=== PATIENT | female | born 1980 ===

== ENCOUNTER 2017-04-28 14:16 | Emergency (ER) | payer SELFPAY ==
[2017-04-28 14:31] VITALS: TEMP 98.7
--- NOTE | 2017-04-28 14:45 | ED PDOC ---
Arrival/HPI - General Chief Complaint: Alcohol Ingestion Time Seen by Provider: 04/28/17 14:20 Historian: Patient, EMS, Police - History of Present Illness Narrative History of Present Illness (Text): 04/28/17 14:40 A 36 year old female was brought into the emergency department by EMS for psych evaluation. EMS and [place] [employer] were called by sister after patient stated she was going to kill herself. Patient admits to drinking a lot of alcohol today and suicidal ideation with no plan. On evaluation, patient is aggressive and non-cooperative. Patient denies any physical complaints, homicidal ideation or hallucinations. Patient has not been complaint with her medication. 04/28/17 14:45 Time/Duration: Prior to Arrival Past Medical History - Provider Review Nursing Documentation Reviewed: Yes - Infectious Disease Hx of Infectious Diseases: None - Reproductive Menopause: No - Cardiac Other/Comment: alcohol abuse - Psychiatric Hx Depression: Yes Hx Substance Use: No Other/Comment: suicide attempt Family/Social History - Physician Review Nursing Documentation Reviewed: Yes Family/Social History: No Known Family HX Smoking Status: Current Some Days Smoker Hx Alcohol Use: Yes Frequency of alcohol use: Daily Hx Substance Use: No Allergies/Home Meds Allergies/Adverse Reactions: Allergies No Known Allergies Allergy (Verified 04/28/17 14:26) Home Medications: Home Meds Medication Instructions Recorded Confirmed DULoxetine [Cymbalta] 0 mg PO DAILY 04/28/17 04/28/17 Review of Systems - Physician Review All systems were reviewed & negative as marked: Yes - Review of Systems Constitutional: absent: Fevers, Night Sweats Respiratory: absent: SOB Cardiovascular: absent: Chest Pain Gastrointestinal: absent: Abdominal Pain, Nausea, Vomiting Psychiatric: Suicidal Ideation. absent: Other (Homicidal ideation, Hallucinations) Physical Exam Vital Signs Reviewed: Yes Vital Signs Temp Pulse Resp BP Pulse Ox 04/28/17 18:10 98 H 18 146/101 H 97 04/28/17 14:30 98.7 F 118 H 17 142/99 H 95 Temperature: Afebrile Blood Pressure: Hypertensive Pulse: Tachycardic Respiratory Rate: Normal Pain Distress: None Mental Status: Positive for: Agitated - Systems Exam Head: Present: Atraumatic, Normocephalic Pupils: Present: PERRL Extroacular Muscles: Present: EOMI Conjunctiva: Present: Normal Mouth: Present: Moist Mucous Membranes Neck: Present: Normal Range of Motion Respiratory/Chest: Present: Clear to Auscultation, Good Air Exchange. No: Respiratory Distress, Accessory Muscle Use Cardiovascular: Present: Regular Rate and Rhythm, Normal S1, S2. No: Murmurs Abdomen: Present: Normal Bowel Sounds. No: Tenderness, Distention, Peritoneal Signs Back: Present: Normal Inspection Upper Extremity: Present: Normal Inspection. No: Cyanosis, Edema Lower Extremity: Present: Normal Inspection. No: Edema Skin: Present: Warm, Dry, Normal Color. No: Rashes Psychiatric: Present: Agitated, Suicidal Ideation. No: Homicidal Ideation, Hallucinations Medical Decision Making ED Course and Treatment: 04/28/17 14:40 Impression: A 36 year old female brought in for psych evaluation. Patient admits to suicidal ideation and drinking a lot of alcohol today. Differential Diagnosis included but are not limited to: Suicidal ideation Plan: -- Chest xray -- EKG -- Labs -- Urinalysis -- Haldol and Ativan -- Restraints -- Reassess and disposition Progress Notes: On evaluation, patient was agitated, screaming and acting aggressive towards the emergency room staff. I attempted to talk to the patient and gave her time calm down. Patient continued yelling and acting non-cooperative. Haldol and Ativan were administered, and patient was restrained for her safety and the safety of the emergency room staff. 04/28/17 15:07 Sinus Tachy at [address] elevations, nl intervals. Patient is medically cleared for psych evaluation. CHEST X-RAY Dictator : Mally Blackwood MD Report Date : 04/28/2017 16:01:25 IMPRESSION: No focal consolidation, significant pleural effusion, or definite pneumothorax identified. 04/28/17 18:57 Patient evaluated by PES but still sedated. She will need a reevaluation by PES pending sobriety. Signed out to Dr. Mendez to f/u reeval and disposition and f/u PES. - Lab Interpretations Lab Results: 04/28/17 14:35 04/28/17 14:35 Lab Results 04/28/17 14:35: Beta HCG, Quant < 2.39 04/28/17 14:35: Alcohol, Quantitative 272 H 04/28/17 14:35: Salicylates < 1 L, Acetaminophen < 10.0 L 04/28/17 14:35: Sodium 142, Potassium 3.4 L, Chloride 101, Carbon Dioxide 26, Anion Gap 18, BUN 11, Creatinine 0.8, Est GFR ( Amer) > 60, Est GFR (Non- Af Amer) > 60, Random Glucose 128 H, Calcium 8.3 L, Total Bilirubin 0.4, AST 67 H, ALT 63 H, Alkaline Phosphatase 95, Total Protein 7.4, Albumin 4.2, Globulin 3.2, Albumin/Globulin Ratio 1.3 04/28/17 14:35: WBC 8.1, RBC 5.22, Hgb 15.2, Hct 43.8, MCV 83.9, MCH 29.1, MCHC 34.7, RDW 14.8 H, Plt Count 262, MPV 9.1, Gran % 52.8, Lymph % (Auto) 33.6, Rowan % (Auto) 12.5 H, Eos % (Auto) 0.2 L, Baso % (Auto) 0.9, Gran # 4.25, Lymph # 2.7, Rowan # 1.0 H, Eos # 0.0, Baso # 0.07 I have reviewed the lab results: Yes - RAD Interpretation Radiology Orders: 04/28/17 14:22 CHEST PORTABLE [RAD] Stat - Medication Orders Current Medication Orders: Discontinued Medications Haloperidol Lactate (Haldol) 5 mg IM STAT STA Stop: 04/28/17 14:23 Last Admin: 04/28/17 14:20 Dose: 5 mg Comments: administered by Graciela Joseph RN IM Administration Charges Document 04/28/17 14:20 (Rec: 04/28/17 15:36 [facility] [id number]) Charges for Administration # of IM Administrations 1 Lorazepam (Ativan) 2 mg IM ONCE ONE Stop: 04/28/17 14:23 Last Admin: 04/28/17 14:20 Dose: 2 mg IM Administration Charges Document 04/28/17 14:20 CNR (Rec: 04/28/17 14:32 CNR [id number]) Injection Site MAR Injection Site Right Deltoid Charges for Administration # of IM Administrations 1 Potassium Chloride (K-Dur 20 Meq Er Tab) 40 meq PO STAT STA Stop: 04/28/17 15:16 - Scribe Statement The provider has reviewed the documentation as recorded by the Scribe Julianne Rowland Provider García Attestation: All medical record entries made by the Proibrachel were at my direction and personally dictated by me. I have reviewed the chart and agree that the record accurately reflects my personal performance of the history, physical exam, medical decision making, and the department course for this patient. I have also personally directed, reviewed, and agree with the discharge instructions and disposition. Disposition/Present on Arrival - Present on Arrival Any Indicators Present on Arrival: No History of DVT/PE: No History of Uncontrolled Diabetes: No Urinary Catheter: No History of Decub. Ulcer: No History Surgical Site Infection Following: None - Disposition Have Diagnosis and Disposition been Completed?: Yes Diagnosis: Alcohol intoxication, Suicidal behavior Disposition Time: 18:58 Condition: FAIR Forms: [employer] (Yakut)
[2017-04-28 14:50] LABS: BASO # 0.07 K/mm3 (0.0-2.0); BASO % 0.9 % (0.0-3.0); EOS % 0.2 % (1.5-5.0); GRAN # 4.25 (1.4-6.5); GRAN % 52.8 % (50.0-68.0); HEMATOCRIT 43.8 % (36.0-48.0); LYMPH # 2.7 (1.2-3.4); LYMPH % 33.6 % (22.0-35.0); MEAN CELL VOLUME 83.9 fl (80.0-105.0); MEAN CORPUSCULAR HEMOGLOBIN 29.1 pg (25.0-35.0); MEAN CORPUSCULAR HGB CONC 34.7 g/dl (31.0-37.0); MEAN PLATELET VOLUME 9.1 fl (7.0-11.0); MONO % 12.5 % (1.0-6.0); RED CELL DISTRIBUTION WIDTH 14.8 % (11.5-14.5); WHITE BLOOD COUNT 8.1 10^3/ul (4.5-11.0)
[2017-04-28 14:58] LABS: ALKALINE PHOSPHATASE 95 U/L (38-126); ALT/SGPT 63 U/L (7-56); AST/SGOT 67 U/L (14-36); BILIRUBIN,TOTAL 0.4 mg/dL (0.2-1.3); BLOOD UREA NITROGEN 11 mg/dL (7-21); CALCIUM 8.3 mg/dL (8.4-10.5); CARBON DIOXIDE 26 mmol/L (21-33); CHLORIDE 101 mmol/L (98-107); GFR AFRICAN-AMERICAN > 60; GLUCOSE,RANDOM 128 mg/dL (70-110); POTASSIUM 3.4 mmol/L (3.6-5.0); SODIUM 142 mmol/L (132-148)
[2017-04-28 15:00] LABS: TOTAL PROTEIN 7.4 g/dL (5.8-8.3)
[2017-04-28 15:06] LABS: ALB/GLOB RATIO 1.3 (1.1-1.8)
[2017-04-28] MEDS ORDERED: Potassium Chloride 20 mEq ER Tab PO STA (15:15)
--- NOTE | 2017-04-28 16:02 | RAD ---
HISTORY: psych COMPARISON: None available. TECHNIQUE: Chest, one view. FINDINGS: Examination limited by hypoinflation and patient obliquity. LUNGS: No focal consolidation. PLEURA: No significant pleural effusion identified. No definite pneumothorax . CARDIOVASCULAR: The cardiomediastinal silhouette appears within normal limits of size. OSSEOUS STRUCTURES: No acute osseous abnormality identified. VISUALIZED UPPER ABDOMEN: Unremarkable. OTHER FINDINGS: None. IMPRESSION: No focal consolidation, significant pleural effusion, or definite pneumothorax identified.
[2017-04-28 18:10] VITALS: RESP 18
--- NOTE | 2017-04-28 19:10 | ED PDOC ---
Physical Exam Vital Signs Reviewed: Yes Vital Signs Temp Pulse Resp BP Pulse Ox 04/28/17 21:01 97 H 18 140/88 98 04/28/17 18:10 98 H 18 146/101 H 97 04/28/17 16:30 96 H 16 130/98 H 98 04/28/17 14:30 98.7 F 118 H 17 142/99 H 95 Temperature: Afebrile Blood Pressure: Hypertensive Pulse: Tachycardic Respiratory Rate: Normal Appearance: Positive for: Well-Appearing, Non-Toxic, Comfortable Pain Distress: None Mental Status: Positive for: Alert and Oriented X 3 Medical Decision Making ED Course and Treatment: 04/28/17 19:10 Case endorsed to me by Dr. Culp, pending PES re-evaluation and disposition. 04/28/17 22:55 Pt seen and re-evaluated by BLANCO Sanchez,discussed by him with psychiatrist pt psychiatrically cleared for discharge home. Pt awake, alert, agreeable with plan. - Lab Interpretations Lab Results: 04/28/17 14:35 04/28/17 14:35 Lab Results 04/28/17 14:35: Beta HCG, Quant < 2.39 04/28/17 14:35: Alcohol, Quantitative 272 H 04/28/17 14:35: Salicylates < 1 L, Acetaminophen < 10.0 L 04/28/17 14:35: Sodium 142, Potassium 3.4 L, Chloride 101, Carbon Dioxide 26, Anion Gap 18, BUN 11, Creatinine 0.8, Est GFR ( Amer) > 60, Est GFR (Non- Af Amer) > 60, Random Glucose 128 H, Calcium 8.3 L, Total Bilirubin 0.4, AST 67 H, ALT 63 H, Alkaline Phosphatase 95, Total Protein 7.4, Albumin 4.2, Globulin 3.2, Albumin/Globulin Ratio 1.3 04/28/17 14:35: WBC 8.1, RBC 5.22, Hgb 15.2, Hct 43.8, MCV 83.9, MCH 29.1, MCHC 34.7, RDW 14.8 H, Plt Count 262, MPV 9.1, Gran % 52.8, Lymph % (Auto) 33.6, Leslie % (Auto) 12.5 H, Eos % (Auto) 0.2 L, Baso % (Auto) 0.9, Gran # 4.25, Lymph # 2.7, Leslie # 1.0 H, Eos # 0.0, Baso # 0.07 - RAD Interpretation Radiology Orders: 04/28/17 14:22 CHEST PORTABLE [RAD] Stat - Medication Orders Current Medication Orders: Discontinued Medications Haloperidol Lactate (Haldol) 5 mg IM STAT STA Stop: 04/28/17 14:23 Last Admin: 04/28/17 14:20 Dose: 5 mg Comments: administered by Graciela Joseph RN IM Administration Charges Document 04/28/17 14:20 MD (Rec: 04/28/17 15:36 [id number]) Charges for Administration # of IM Administrations 1 Lorazepam (Ativan) 2 mg IM ONCE ONE Stop: 04/28/17 14:23 Last Admin: 04/28/17 14:20 Dose: 2 mg IM Administration Charges Document 04/28/17 14:20 CNR (Rec: 04/28/17 14:32 CNR [id number]) Injection Site MAR Injection Site Right Deltoid Charges for Administration # of IM Administrations 1 Potassium Chloride (K-Dur 20 Meq Er Tab) 40 meq PO STAT STA Stop: 04/28/17 15:16 Disposition/Present on Arrival - Present on Arrival Any Indicators Present on Arrival: No History of DVT/PE: No History of Uncontrolled Diabetes: No Urinary Catheter: No History of Decub. Ulcer: No History Surgical Site Infection Following: None - Disposition Have Diagnosis and Disposition been Completed?: Yes Diagnosis: Alcohol intoxication Disposition: HOME/ ROUTINE Disposition Time: 23:47 Patient Plan: Discharge Patient Problems: Current Active Problems Problem Status Onset Alcohol intoxication Acute Suicidal behavior Acute Condition: FAIR Discharge Instructions (ExitCare): Alcohol Intoxication (ED) Referrals: Alcoholics Anonymous [Outside] - Follow up with primary Community [facility] [Outside] - Follow up with primary Forms: [employer] (Divehi)
[2017-04-28 21:02] VITALS: BP 140/88; PULSE 97; O2SAT 98
--- NOTE | 2017-04-29 19:53 | CARD ---
APPROVED REPORT EKG Measurement Heart [id number] <Conclusion> Sinus tachycardia Possible Left atrial enlargement Borderline ECG
== END 2017-04-29 06:44 | disposition home or self-care (01) ==
LOC: ED 14:16
DX: F10.129 Alcohol abuse with intoxication, unspecified (principal); Y90.8 Blood alcohol level of 240 mg/100 ml or more; R45.851 Suicidal ideations
CPT/HCPCS: 71010; 80053; 84702; 85025; 90791; 93005; 96372; 99285; G0480; J1630; J2060

== ENCOUNTER 2017-05-05 09:33 | Inpatient (IN) | payer OTHER ==
[2017-05-05] MEDS ORDERED: Sodium Chloride 0.9% 1,000 ML IV STA (09:48)
--- NOTE | 2017-05-05 09:54 | ED PDOC ---
Arrival/HPI - General Chief Complaint: Medical Clearance Time Seen by Provider: 05/05/17 09:37 Historian: Patient - Critical Care Critical Care Minutes: 45 minutes - History of Present Illness Narrative History of Present Illness (Text): 05/05/17 09:51 36 year old female, whose past medical history includes alcohol abuse, presents to the emergency department complaining of alcohol withdrawals that began 3 days ago. Patient admits to drinking prior to alcohol detox. She also reports hearing voices and reports multiple mechanical falls. Patient currently complains of nausea, vomiting, but denies any fever, chest pain, diarrhea, back pain, neck pain, headache, dizziness, suicidal/homicidal ideation or any other complaints. Time/Duration: Other (3 days ago) Symptom Course: Unchanged Activities at Onset: Light Context: Home Past Medical History - Provider Review Nursing Documentation Reviewed: Yes - Infectious Disease Hx of Infectious Diseases: None - Cardiac Hx Cardiac Disorders: No Hx Hypertension: No - Pulmonary Hx Tuberculosis: No - Neurological HX Cerebrovascular Accident: No Hx Seizures: No - Hematological/Oncological Hx Cancer: No - Genitourinary/Gynecological Hx Sexually Transmitted Diseases: No - Psychiatric Hx Depression: Yes Hx Substance Use: No Other/Comment: suicide attempt, daily alcohol consumption - Anesthesia Hx Anesthesia: No Hx Anesthesia Reactions: No Hx Malignant Hyperthermia: No Family/Social History - Physician Review Nursing Documentation Reviewed: Yes Family/Social History: No Known Family HX Smoking Status: Current Some Days Smoker Hx Alcohol Use: Yes Hx Substance Use: No Allergies/Home Meds Allergies/Adverse Reactions: Allergies Tetracyclines Adverse Reaction (Verified 05/05/17 09:59) RASH Home Medications: Home Meds Medication Instructions Recorded Confirmed DULoxetine [Cymbalta] 1 mg PO DAILY 04/28/17 05/05/17 Review of Systems - Physician Review All systems were reviewed & negative as marked: Yes - Review of Systems Constitutional: Other (Treminalous ). absent: Fevers Respiratory: absent: SOB Gastrointestinal: Nausea, Vomiting Musculoskeletal: absent: Back Pain, Neck Pain Skin: Other (bruising bilateral elbow and knee) Neurological: absent: Headache, Dizziness Psychiatric: Other (Hearing voices). absent: Suicidal Ideation (/Homicidal Ideation) Physical Exam Vital Signs Reviewed: Yes Vital Signs Temp Pulse Resp BP Pulse Ox 05/05/17 14:43 108 H 21 134/84 100 05/05/17 13:12 112 H 18 150/82 98 05/05/17 11:24 112 H 14 138/94 H 99 05/05/17 09:37 98.6 F 144 H 20 140/98 H 99 Temperature: Afebrile Blood Pressure: Normal Pulse: Tachycardic Respiratory Rate: Normal Appearance: Positive for: Other (Traminalous) Mental Status: Positive for: Alert and Oriented X 3 - Systems Exam Head: Present: Normocephalic, Contusion (Small contusion to forehead ) Pupils: Present: PERRL Extroacular Muscles: Present: EOMI Conjunctiva: Present: Normal Mouth: Present: Moist Mucous Membranes Neck: Present: Normal Range of Motion Respiratory/Chest: Present: Clear to Auscultation, Good Air Exchange. No: Respiratory Distress, Accessory Muscle Use Cardiovascular: Present: Normal S1, S2, Tachycardic. No: Murmurs Abdomen: Present: Normal Bowel Sounds. No: Tenderness, Distention, Peritoneal Signs Back: Present: Normal Inspection Upper Extremity: Present: Normal Inspection, Other (Ecchymosis worsen bilateral elbow and knee). No: Cyanosis, Edema Lower Extremity: Present: Normal Inspection. No: Edema Neurological: Present: GCS=15, CN II-XII Intact, Speech Normal Skin: Present: Warm, Dry, Normal Color. No: Rashes Psychiatric: Present: Alert, Oriented x 3, Normal Insight, Normal Concentration Medical Decision Making ED Course and Treatment: 05/05/17 09:52 Impression: 36 year old female presents complaining of alcohol withdrawal symptoms that began 3 days ago. Plan: -- Head CT -- EKG -- Labs -- Chest X-ray -- Ativan -- IV Fluids -- Zofran -- Elbow Left and Right 3 View X-Ray -- Knees Bilateral X-ray -- Pelvis One View X-Ray -- Right ribs X-ray -- Urinalysis -- Reassess and disposition Prior Visits: Notes and results from previous visits were reviewed. Patient was last seen in the emergency department on 04/28/17 for psych evaluation. Patient admits to drinking. Progress Notes: EKG shows Sinus Tachycardia at 121 BPM. Interpreted by me. 05/05/17 10:21 On re-evaluation patient remains tachycardic. Tremulous has improved. PROCEDURE: CT HEAD WITHOUT CONTRAST Dictator: Jacob Aaron MD Report Date : 05/05/2017 IMPRESSION: No acute intracranial hemorrhage. Mild left-sided scalp swelling as above PROCEDURE: Right elbow Dictator: Jacob Aaron MD Report Date : 05/05/2017 11:34:46 IMPRESSION: Limited study demonstrating no acute fractures. PROCEDURE: Left elbow Dictator: Jacob Aaron MD Report Date : 05/05/2017 11:35:46 IMPRESSION: No evidence of acute displaced fracture nor dislocation. PROCEDURE: Radiographs of the pelvis. Dictator: Jacob Aaron MD Report Date : 05/05/2017 11:56:53 IMPRESSION: No evidence of acute displaced fracture nor dislocation. In situ Copper-T IUD PROCEDURE: Right rib Dictator : Jacob Aaron MD Report Date : 05/05/2017 12:14:30 IMPRESSION: No evidence of acute displaced right-sided rib fracture. No evidence of pneumothorax. If symptoms persist or occult fracture suspected clinically consider followup CT scan of the chest only if clinically indicated PROCEDURE: Chest X-ray Dictator : Jacob Aaron MD Report Date : 05/05/2017 12:12:17 IMPRESSION: Poor inspiration with low lung volumes, minor crowded bronchovascular markings and minor bibasilar atelectasis. PROCEDURE: Bilateral Knee Radiographs. Dictator : Jacob Aaron MD Report Date : 05/05/2017 12:10:18 IMPRESSION: No evidence of acute displaced fracture nor dislocation 05/05/17 12:[address] Matthew, who is aware and agrees with the plan. Accepts patient into service. Patient will go to Telemetry for alcohol withdrawal. - Lab Interpretations Lab Results: 05/05/17 10:00 05/05/17 10:00 Lab Results 05/05/17 10:00: Alcohol, Quantitative 100 H 05/05/17 10:00: Salicylates 4, Acetaminophen < 10.0 L 05/05/17 10:00: Urine Opiates Screen Negative, Urine Methadone Screen Negative, Ur Barbiturates Screen Negative, Ur Phencyclidine Scrn Negative, Ur Amphetamines Screen Negative, U Benzodiazepines Scrn Negative, U Oth Cocaine Metabols Negative, U Cannabinoids Screen Negative 05/05/17 10:00: Sodium 138, Potassium 3.2 L, Chloride 97 L, Carbon Dioxide 23, Anion Gap 21 H, BUN 16, Creatinine 0.7, Est GFR ( Amer) > 60, Est GFR ( Non-Af Amer) > 60, Random Glucose 132 H, Calcium 8.3 L, Total Bilirubin 1.1, AST 162 H D, ALT 122 H, Alkaline Phosphatase 140 H D, Total Creatine Kinase 1560 H, CK-MB (CK-2) 26.4 H, CK-MB (CK-2) % 1.7 L, Total Protein 7.3, Albumin 3.9, Globulin 3.4, Albumin/Globulin Ratio 1.1 05/05/17 10:00: Urine Color Light brown, Urine Appearance Sl cloudy, Urine pH 6.0, Ur Specific Goodman >= 1.030, Urine Protein 100 H, Urine Glucose (UA) Negative, Urine Ketones 40 H, Urine Blood Large H, Urine Nitrate Negative, Urine Bilirubin Small H, Urine Urobilinogen 1.0 H, Ur Leukocyte Esterase Negative, Urine RBC 25 - 30, Urine WBC 0 - 2, Ur Epithelial Cells 6 - 8, Amorphous Sediment Few, Urine Bacteria Many, Hyaline Casts 2 - 5, Fine Granular Casts 0 - 2, Urine Other Uyeast, Urine HCG, Qual Negative 05/05/17 10:00: WBC 14.1 H D, RBC 4.95, Hgb 14.3, Hct 40.9, MCV 82.6, MCH 28.9, MCHC 35.0, RDW 14.3, Plt Count 115 L, MPV 10.3, Gran % 79.9 H, Lymph % (Auto) 15.4 L, Hardin % (Auto) 4.5, Eos % (Auto) 0.0 L, Baso % (Auto) 0.2, Gran # 11.26 H , Lymph # 2.2, Hardin # 0.6, Eos # 0.0, Baso # 0.03 I have reviewed the lab results: Yes - RAD Interpretation Radiology Orders: 05/05/17 09:47 CHEST PORTABLE [RAD] Stat 05/05/17 10:01 HEAD W/O CONTRAST [CT] Stat ELBOW LEFT 3 VIEWS ROUTINE [RAD] Stat ELBOW RIGHT 3 VIEWS ROUTINE [RAD] Stat KNEES BILATERAL [RAD] Stat 05/05/17 10:10 PELVIS ONE VIEW [RAD] Stat 05/05/17 10:50 RIBS RIGHT [RAD] Stat - EKG Interpretation Interpreted by ED Physician: Yes Type: 12 lead EKG - Medication Orders Current Medication Orders: Duloxetine HCl (Cymbalta) 20 mg PO DAILY MANSI Folic Acid 1 mg/ Thiamine HCl 100 mg/ Multivitamins/Vitamin C 10 ml/ Dextrose 1 ,011.2 mls @ 100 mls/hr IV .Q10H7M MANSI Stop: 05/06/17 09:58 Last Admin: 05/05/17 14:15 Dose: 100 mls/hr eMAR Start Stop Document 05/05/17 14:15 CNR (Rec: 05/05/17 14:15 CNR [id number]) Intravenous Solution Start Date 05/05/17 Start Time 14:15 Ibuprofen (Motrin Tab) 600 mg PO Q6H PRN PRN Reason: Pain, moderate (4-7) Lorazepam (Ativan) 2 mg IVP Q4H MANSI PRN Reason: Protocol Last Admin: 05/05/17 13:56 Dose: 2 mg IVP Administration Document 05/05/17 13:56 CNR (Rec: 05/05/17 13:56 CNR [id number]) Charges for Administration # of IVP Administrations 1 Lorazepam (Ativan) 2 mg IVP Q2H PRN; Protocol PRN Reason: Symptoms of alcohol withdrawl Pantoprazole Sodium (Protonix Ec Tab) 40 mg PO 0600 MANSI Discontinued Medications Chlordiazepoxide (Librium) 50 mg PO STAT STA PRN Reason: Protocol Stop: 05/05/17 11:26 Last Admin: 05/05/17 11:31 Dose: 50 mg Re-Assess: SOFIE Pain Assessment Document 05/05/17 14:21 GMI (Rec: 05/05/17 14:21 GMI [id number]) Pain Reassessment Is this a pain reassessment? No Sleep Is patient sleeping during reassessment? No Famotidine (Pepcid) 40 mg PO HS MANSI Sodium Chloride (Sodium Chloride 0.9%) 1,000 mls @ 999 mls/hr IV .Q1H1M STA Stop: 05/05/17 10:48 Last Admin: 05/05/17 10:04 Dose: 999 mls/hr eMAR Start Stop Document 05/05/17 10:04 GMI (Rec: 05/05/17 10:04 GMI [id number]) Intravenous Solution Start Date 05/05/17 Start Time 10:04 Lorazepam (Ativan) 2 mg IVP ONCE ONE PRN Reason: Protocol Stop: 05/05/17 09:49 Last Admin: 05/05/17 10:18 Dose: 2 mg IVP Administration Document 05/05/17 10:18 CNR (Rec: 05/05/17 10:20 CNR [id number]) Charges for Administration # of IVP Administrations 1 Re-Assess: SOFIE Pain Assessment Document 05/05/17 14:21 GMI (Rec: 05/05/17 14:21 GMI [id number]) Pain Reassessment Is this a pain reassessment? No Magnesium Oxide (Mag-Ox) 400 mg PO STAT STA Stop: 05/05/17 13:39 Last Admin: 05/05/17 13:55 Dose: 400 mg Ondansetron HCl (Zofran Inj) 4 mg IVP STAT STA Stop: 05/05/17 09:53 Last Admin: 05/05/17 10:05 Dose: 4 mg IVP Administration Document 05/05/17 10:05 GMI (Rec: 05/05/17 10:05 I [id number]) Charges for Administration # of IVP Administrations 1 Potassium Chloride (K-Dur 20 Meq Er Tab) 40 meq PO STAT STA Stop: 05/05/17 10:54 Last Admin: 05/05/17 11:31 Dose: 40 meq - Proibrachel Statement The provider has reviewed the documentation as recorded by the García Amaro All medical record entries made by the García were at my direction and personally dictated by me. I have reviewed the chart and agree that the record accurately reflects my personal performance of the history, physical exam, medical decision making, and the department course for this patient. I have also personally directed, reviewed, and agree with the discharge instructions and disposition. Disposition/Present on Arrival - Present on Arrival Any Indicators Present on Arrival: No History of DVT/PE: No History of Uncontrolled Diabetes: No Urinary Catheter: No History of Decub. Ulcer: No History Surgical Site Infection Following: None - Disposition Have Diagnosis and Disposition been Completed?: Yes Diagnosis: Alcohol withdrawal Disposition: HOSPITALIZED Disposition Time: 14:48 Condition: FAIR
[2017-05-05 10:39] LABS: BASO # 0.03 K/mm3 (0.0-2.0); BASO % 0.2 % (0.0-3.0); GRAN # 11.26 (1.4-6.5); GRAN % 79.9 % (50.0-68.0); HEMATOCRIT 40.9 % (36.0-48.0); LYMPH # 2.2 (1.2-3.4); LYMPH % 15.4 % (22.0-35.0); MEAN CELL VOLUME 82.6 fl (80.0-105.0); MEAN CORPUSCULAR HEMOGLOBIN 28.9 pg (25.0-35.0); MEAN PLATELET VOLUME 10.3 fl (7.0-11.0); MONO # 0.6 (0.1-0.6); MONO % 4.5 % (1.0-6.0); RED CELL DISTRIBUTION WIDTH 14.3 % (11.5-14.5); WHITE BLOOD COUNT 14.1 10^3/ul (4.5-11.0)
[2017-05-05 10:40] LABS: URINE BILIRUBIN SMALL (NEGATIVE); URINE BLOOD LARGE (NEGATIVE); URINE GLUCOSE (UA) NEGATIVE (NEGATIVE); URINE KETONE 40 mg/dL (NEGATIVE); URINE LEUKOCYTE ESTERASE NEGATIVE Leu/uL (NEGATIVE); URINE PROTEIN 100 mg/dL (<30 mg/dL)
[2017-05-05 10:41] LABS: URINE APPEARANCE SL CLOUDY (CLEAR); URINE COLOR LIGHT BROWN (YELLOW)
[2017-05-05 10:44] LABS: URINE BACTERIA MANY (NEG); URINE RBC 25 - 30 /hpf (0-2); URINE WBC 0 - 2 /hpf (0-6)
[2017-05-05 10:46] LABS: URINE AMORPHOUS SEDIMENT FEW
[2017-05-05 10:50] LABS: ALB/GLOB RATIO 1.1 (1.1-1.8); ALKALINE PHOSPHATASE 140 U/L (38-126); ALT/SGPT 122 U/L (7-56); AST/SGOT 162 U/L (14-36); BILIRUBIN,TOTAL 1.1 mg/dL (0.2-1.3); BLOOD UREA NITROGEN 16 mg/dL (7-21); CALCIUM 8.3 mg/dL (8.4-10.5); CARBON DIOXIDE 23 mmol/L (21-33); CHLORIDE 97 mmol/L (98-107); GFR AFRICAN-AMERICAN > 60; GLUCOSE,RANDOM 132 mg/dL (70-110); POTASSIUM 3.2 mmol/L (3.6-5.0); SODIUM 138 mmol/L (132-148); TOTAL PROTEIN 7.3 g/dL (5.8-8.3)
[2017-05-05] MEDS ORDERED: Potassium Chloride 20 mEq ER Tab PO STA (10:53)
--- NOTE | 2017-05-05 11:06 | CT ---
PROCEDURE: CT HEAD WITHOUT CONTRAST. HISTORY: Trauma COMPARISON: None available. TECHNIQUE: Axial computed tomography images were obtained through the head/brain without intravenous contrast. Radiation dose: Total exam DLP = 726.57 mGy-cm. This CT exam was performed using one or more of the following dose reduction techniques: Automated exposure control, adjustment of the mA and/or kV according to patient size, and/or use of iterative reconstruction technique. FINDINGS: HEMORRHAGE: No acute parenchymal, subarachnoid nor extra-axial hemorrhage. BRAIN: No mass effect or edema. No atrophy or chronic microvascular ischemic changes. VENTRICLES: Unremarkable. No hydrocephalus. CALVARIUM: No acute calvarial fractures. Mild left frontotemporal and parietal scalp swelling. PARANASAL SINUSES: Minor mucosal thickening seen within a few ethmoid air cells. MASTOID AIR CELLS: Unremarkable as visualized. No inflammatory changes. OTHER FINDINGS: None. IMPRESSION: No acute intracranial hemorrhage. Mild left-sided scalp swelling as above
--- NOTE | 2017-05-05 11:36 | RAD ---
PROCEDURE: Right elbow dated 05/05/2017. Three views right elbow performed. Note the examination is somewhat limited due to overlying artifact which partially obscures fine soft tissue and bone detail HISTORY: trauma COMPARISON: No prior. FINDINGS: BONES: No evidence of acute displaced fracture nor dislocation. The osseous structures appear intact. JOINTS: No significant osteoarthritis. SOFT TISSUES: In situ Angiocath JOINT EFFUSION: None. OTHER FINDINGS: None. IMPRESSION: Limited study demonstrating no acute fractures.
--- NOTE | 2017-05-05 11:37 | RAD ---
PROCEDURE: Left elbow dated the 05/05/2017 Three views left elbow performed HISTORY: trauma COMPARISON: No prior. FINDINGS: BONES: Normal. No fracture. JOINTS: Normal. No osteoarthritis. SOFT TISSUES: Normal. JOINT EFFUSION: None. OTHER FINDINGS: None IMPRESSION: No evidence of acute displaced fracture nor dislocation.
--- NOTE | 2017-05-05 11:58 | RAD ---
PROCEDURE: Radiographs of the pelvis. HISTORY: fall COMPARISON: None. FINDINGS: BONES: Pelvic Bones: Unremarkable. Hips: Grossly unremarkable. JOINTS: Sacroiliac Joints: Unremarkable. Pubic Symphysis: Unremarkable. OTHER FINDINGS: In situ Copper-T IUD theNone. IMPRESSION: No evidence of acute displaced fracture nor dislocation. In situ Copper-T IUD
--- NOTE | 2017-05-05 12:11 | RAD ---
PROCEDURE: Bilateral Knee Radiographs. HISTORY: trauma COMPARISON: None. FINDINGS: BONES: Right Knee: Normal. No fracture. Left Knee: Normal. No fracture. JOINTS: Right Knee: Normal. No osteoarthritis. Left knee: Normal. No osteoarthritis. SOFT TISSUES: Right Knee: Normal. Left Knee: Normal. JOINT EFFUSION: Evaluation for joint effusion both knees limited due to over flexion in the lateral projection OTHER FINDINGS: None. IMPRESSION: No evidence of acute displaced fracture nor dislocation
--- NOTE | 2017-05-05 12:13 | RAD ---
HISTORY: pysch COMPARISON: Comparison made with prior chest radiograph 04/28/2017 and concurrent radiographs of the right ribs. FINDINGS: LUNGS: Poor inspiration with low lung volumes, minor crowded bronchovascular markings and minor bibasilar atelectasis. PLEURA: No significant pleural effusion identified, no pneumothorax apparent. CARDIOVASCULAR: Normal. OSSEOUS STRUCTURES: No significant abnormalities. VISUALIZED UPPER ABDOMEN: Normal. OTHER FINDINGS: None. IMPRESSION: Poor inspiration with low lung volumes, minor crowded bronchovascular markings and minor bibasilar atelectasis.
--- NOTE | 2017-05-05 12:16 | RAD ---
PROCEDURE: Right rib series dated HISTORY: fall COMPARISON: 05/05/2017 correlation made with concurrent radiograph of the chest TECHNIQUE: Three views of the right ribs performed. FINDINGS: RIGHT RIBS: No fracture or focal lesion visualized. LUNGS: Clear. PLEURA: No pneumothorax or pleural fluid. CARDIOVASCULAR: Normal sized heart. No pulmonary vascular congestion. OTHER FINDINGS: None. IMPRESSION: No evidence of acute displaced right-sided rib fracture. No evidence of pneumothorax. If symptoms persist or occult fracture suspected clinically consider followup CT scan of the chest only if clinically indicated
--- NOTE | 2017-05-05 13:22 | CP.PCM.HP ---
<Trav Oconnell - Last Filed: 05/05/17 13:15> History of Present Illness - History of Present Illness History of Present Illness: Dr. Matthew Service 36 F with a PMHx of depression with previous suicidal ideation, ETOH abuse, and asthma that [place] [facility] with complaints of ETOH withdrawal. Pt states her last drink was approx 3 days ago and has been experiencing tremors, nausea, vomiting and auditory hallucinations. Pt also reports that she has multiple contusions from multiple falls while she was intoxicated. Pt states she would previously go through a gallon of vodka within 2 days and drank daily. Pt was recently seen in the [facility] approx a week ago for suicidal ideation and EOTH intoxication. Pt was seen and examined at bedside. Pt admits to tremors, reproducible chest wall tenderness, nausea and vomitting. Pt currently denied suicidal or homicidal ideation. Pt denied fever, chills, sob, abdominal pain, melena, hematochezia, or urinary symptoms. 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, from significant other Meds: Cymbalta Allergies: Tetracycline Present on Admission - Present on Admission Any Indicators Present on Admission: No Review of Systems - Review of Systems Review of Systems: As per HPI otherwise negative Past Patient History - Infectious Disease Hx of Infectious Diseases: None - Past Social History Smoking Status: Current Some Days Smoker - CARDIAC Hx Cardiac Disorders: No Hx Hypertension: No - PULMONARY Hx Tuberculosis: No - NEUROLOGICAL HX Cerebrovascular Accident: No Hx Seizures: No - HEMATOLOGICAL/ONCOLOGICAL Hx Cancer: No - GENITOURINARY/GYNECOLOGICAL Hx Sexually Transmitted Disorders: No - PSYCHIATRIC Hx Depression: Yes Hx Substance Use: No Other/Comment: suicide attempt, daily alcohol consumption - SURGICAL HISTORY Hx Surgeries: No - ANESTHESIA Hx Anesthesia: No Hx Anesthesia Reactions: No Hx Malignant Hyperthermia: No Meds Allergies/Adverse Reactions: Allergies Allergy/AdvReac Type Severity Reaction Status Date / Time Tetracyclines AdvReac RASH Verified 05/05/17 09:59 Physical Exam - Constitutional Appears: No Acute Distress Additional comments: Tremulous - Head Exam Additional comments: Mild swelling of forehead - trauma from fall, no lacerations - Eye Exam Eye Exam: EOMI, Normal appearance, PERRL Pupil Exam: NORMAL ACCOMODATION, PERRL - ENT Exam ENT Exam: Mucous Membranes Moist, Normal Exam - Neck Exam Neck exam: Positive for: Normal Inspection - Respiratory Exam Respiratory Exam: Clear to Auscultation Bilateral, NORMAL BREATHING PATTERN - Cardiovascular Exam Cardiovascular Exam: Tachycardia, +S1, +S2 - GI/Abdominal Exam GI & Abdominal Exam: Normal Bowel Sounds, Soft. absent: Tenderness - Extremities Exam Additional comments: Multiple contusions: elbows b/l, knees - Neurological Exam Neurological exam: Alert, CN II-XII Intact, Oriented x3, Reflexes Normal - Psychiatric Exam Psychiatric exam: Anxious, Depressed - Skin Skin Exam: Dry, Intact, Normal Color, Warm Results - Vital Signs Recent Vital Signs: Last Vital Signs Temp 98.6 F 05/05/17 09:37 Pulse 112 H 05/05/17 13:12 Resp 18 05/05/17 13:12 BP 150/82 05/05/17 13:12 Pulse Ox 98 05/05/17 13:12 - Labs Result Diagrams: 05/05/17 10:00 05/05/17 10:00 Assessment & Plan - Assessment and Plan (Free Text) Assessment: 36 F with PMHx of ETOH abuse and depression admitted for ETOH withdrawal. 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 Couch DVT/GI ppx: Heparin/Protonix Seen reviewed and discussed with attending <Ken Matthew - Last Filed: 05/05/17 14:54> Results - Vital Signs Recent Vital Signs: Last Vital Signs Temp 98.6 F 05/05/17 09:37 Pulse 108 H 05/05/17 14:43 Resp 21 05/05/17 14:43 BP 134/84 05/05/17 14:43 Pulse Ox 100 05/05/17 14:43 - Labs Result Diagrams: 05/05/17 10:00 05/05/17 10:00 Labs: Laboratory Results - last 24 hr 05/05/17 05/05/17 13:00 13:50 APTT 26.4 Phosphorus 2.9 Magnesium 1.4 L Attending/Attestation - Attestation I have personally seen and examined this patient.: Yes I have fully participated in the care of the patient.: Yes I have reviewed all pertinent clinical information: Yes Notes (Text): 05/05/17 14:49 36 year old female with past medical history of alcohol abuse and depression who presents with alcohol withdrawal. Continue with banana bag. Continue with ativan dariel and prn dose for withdrawal symptoms. She was counselled on alcohol cessation. Will replete and repeat lytes (potassium and magnesium). She admits to recent falls. Xray imaging studies are negative. Will need PT evaluation once stable. Will request for psychiatry and drug abuse social worker evaluation. Elevated LFTs likely secondary to chronic ETOH abuse. Will monitor. Hepatitis panel is ordered as well. Leukocytosis likely reactive. CXR negative. UA negative for LE/nitrates. Will monitor off antibiotics for now. Ken Matthew MD Hospitalist.
[2017-05-05 13:29] LABS: MAGNESIUM 1.4 mg/dL (1.7-2.2); PHOSPHOROUS 2.9 mg/dL (2.5-4.5)
[2017-05-05] MEDS ORDERED: Magnesium Oxide 400 mg Tab UD PO STA (13:38)
[2017-05-05] MEDS: Folic Acid 1 MG, Thiamine 100 MG, Multivitamin (MVI) 10 ML in Dextrose 5% In Water 1,00... IV SCH (14:15)
--- NOTE | 2017-05-05 14:31 | CARD ---
APPROVED REPORT EKG Measurement Heart [id number] <Conclusion> Sinus tachycardia Otherwise normal ECG
[2017-05-05 17:36] VITALS: BMI 25.9
[2017-05-05] MEDS ORDERED: Influenza Vaccine 60 mcg/0.5 mL SYR (4YR UP) IM ONE (17:36)
[2017-05-05] MEDS ORDERED: Pneumococcal 23-Valent Vaccine IM ONE (17:36)
[2017-05-05] MEDS ORDERED: Albuterol 0.083% Inhal Sol (2.5 mg/3 mL) UD IH PRN (17:46)
[2017-05-05] MEDS ORDERED: Fluticasone-Salmeterol 250-50mcg Diskus IH SCH ×2 (18:00)
[2017-05-05] MEDS: Arformoterol 15 mcg/2 ml Inh Sol IH SCH (20:15)
[2017-05-05] MEDS: Budesonide 0.5 mg/2 ml Inhal Susp UD IH SCH (20:15)
[2017-05-06] MEDS: Folic Acid 1 MG, Thiamine 100 MG, Multivitamin (MVI) 10 ML in Dextrose 5% In Water 1,00... IV SCH (01:58)
[2017-05-06] MEDS ORDERED: Pantoprazole 40 mg EC Tab PO SCH (06:00)
[2017-05-06] MEDS: Budesonide 0.5 mg/2 ml Inhal Susp UD IH SCH (07:32)
[2017-05-06] MEDS: Arformoterol 15 mcg/2 ml Inh Sol IH SCH (07:32)
[2017-05-06 07:47] LABS: BASO # 0.03 K/mm3 (0.0-2.0); BASO % 0.7 % (0.0-3.0); EOS # 0.1 (0.0-0.7); EOS % 1.3 % (1.5-5.0); GRAN # 2.42 (1.4-6.5); GRAN % 52.7 % (50.0-68.0); HEMATOCRIT 35.8 % (36.0-48.0); LYMPH # 1.8 (1.2-3.4); LYMPH % 38.1 % (22.0-35.0); MEAN CELL VOLUME 83.3 fl (80.0-105.0); MEAN CORPUSCULAR HEMOGLOBIN 28.4 pg (25.0-35.0); MEAN CORPUSCULAR HGB CONC 34.1 g/dl (31.0-37.0); MONO # 0.3 (0.1-0.6); MONO % 7.2 % (1.0-6.0); RED CELL DISTRIBUTION WIDTH 14.2 % (11.5-14.5); WHITE BLOOD COUNT 4.6 10^3/ul (4.5-11.0)
[2017-05-06 07:49] LABS: ALB/GLOB RATIO 1.1 (1.1-1.8); ALKALINE PHOSPHATASE 110 U/L (38-126); ALT/SGPT 111 U/L (7-56); AST/SGOT 135 U/L (14-36); BILIRUBIN,TOTAL 1.7 mg/dL (0.2-1.3); BLOOD UREA NITROGEN 8 mg/dL (7-21); CALCIUM 8.4 mg/dL (8.4-10.5); CARBON DIOXIDE 29 mmol/L (21-33); CHLORIDE 100 mmol/L (95-110); GFR AFRICAN-AMERICAN > 60; GLUCOSE,RANDOM 130 mg/dL (70-110); MAGNESIUM 1.8 mg/dL (1.7-2.2); PHOSPHOROUS 2.4 mg/dL (2.5-4.5); POTASSIUM 3.4 mmol/L (3.6-5.0); SODIUM 136 mmol/L (132-148); TOTAL PROTEIN 6.2 g/dL (5.8-8.3)
[2017-05-06] MEDS: Potassium & Sodium Phosphate PO SCH ×2 (09:28→13:17)
--- NOTE | 2017-05-06 14:18 | CP.PCM.PN ---
<Milton Garcia - Last Filed: 05/06/17 14:23> Subjective - Date & Time of Evaluation Date of Evaluation: 05/06/17 Time of Evaluation: 10:16 - Subjective Subjective: Patient seen and examined at bedside this morning. Per nursing no acute events occurred overnight. The patient denies any chest pain, shortness of breath, nausea, vomiting, changes in vision, abdominal pain, lightheadedness, dizziness , or any other complaints. Objective - Vital Signs/Intake and Output Vital Signs (last 24 hours): Temp Pulse Resp BP Pulse Ox 98.2 F 96 H 20 130/63 98 05/06/17 12:00 05/06/17 12:00 05/06/17 12:00 05/06/17 12:00 05/06/17 06:00 Intake and Output: 05/06/17 05/06/17 06:59 18:59 Intake Total 1400 240 Balance 1400 240 - Medications Medications: Current Medications Albuterol Sulfate (Albuterol 0.083% Inhal Melissa (2.5 Mg/3 Ml) Ud) 2.5 mg IH [id number] PRN PRN Reason: Shortness of Breath Arformoterol Tartrate (Brovana) 15 mcg IH [id number] [facility] Last Admin: 05/06/17 07:32 Dose: 15 mcg Budesonide (Pulmicort Respules) 0.5 mg IH [id number] [facility] Last Admin: 05/06/17 07:32 Dose: 0.5 mg Duloxetine HCl (Cymbalta) 20 mg PO BID [facility] Last Admin: 05/06/17 09:30 Dose: 20 mg Ibuprofen (Motrin Tab) 600 mg PO Q6H PRN PRN Reason: Pain, moderate (4-7) Last Admin: 05/06/17 04:04 Dose: 600 mg Lorazepam (Ativan) 2 mg IVP Q2H PRN; Protocol PRN Reason: Symptoms of alcohol withdrawl Lorazepam (Ativan) 2 mg IVP Q6H DARIEL PRN Reason: Protocol Last Admin: 05/06/17 13:16 Dose: 2 mg Pantoprazole Sodium (Protonix Ec Tab) 40 mg PO 0600 [facility] Last Admin: 05/06/17 05:22 Dose: 40 mg Potassium Phos/Sodium Phos (Neutra-Phos) 1 pkt PO TID [facility] Stop: 05/06/17 18:01 Last Admin: 05/06/17 13:17 Dose: 1 pkt Quetiapine Fumarate (Seroquel) 25 mg PO HS DARIEL PRN Reason: Protocol - Labs Labs: 05/06/17 07:34 05/06/17 07:34 APTT 26.4 Seconds (23.7-30.8) 05/05/17 13:50 - Head Exam Head Exam: ATRAUMATIC, NORMAL INSPECTION, NORMOCEPHALIC - Eye Exam Eye Exam: EOMI, Normal appearance, PERRL. absent: Periorbital tenderness Pupil Exam: NORMAL ACCOMODATION, PERRL. absent: Irregular, Unequal - ENT Exam ENT Exam: Mucous Membranes Moist, Normal Exam. absent: Normal Oropharynx, TM's Normal Bilaterally - Neck Exam Neck Exam: Normal Inspection. absent: Lymphadenopathy, Thyromegaly - Respiratory Exam Respiratory Exam: Clear to Ausculation Bilateral, NORMAL BREATHING PATTERN. absent: Chest Wall Tenderness, Prolonged Expiratory Phase, Respiratory Distress - Cardiovascular Exam Cardiovascular Exam: REGULAR RHYTHM, RRR, +S1, +S2. absent: Gallop, Rubs - GI/Abdominal Exam GI & Abdominal Exam: Soft, Normal Bowel Sounds. absent: Tenderness, Hyperactive Bowel Sounds - Extremities Exam Extremities Exam: Full ROM, Normal Inspection. absent: Joint Swelling, Pedal Edema, Tenderness - Back Exam Back Exam: NORMAL INSPECTION. absent: CVA tenderness (L), CVA tenderness (R), paraspinal tenderness - Neurological Exam Neurological Exam: Awake, Normal Gait, Oriented x3. absent: Altered - Psychiatric Exam Psychiatric exam: Normal Affect, Normal Mood. absent: Anxious, Depressed, Flat Affect - Skin Skin Exam: Dry, Intact Assessment and Plan - Assessment and Plan (Free Text) Assessment: 36 F with PMHx of ETOH abuse and depression admitted for ETOH withdrawal. Plan: ETOH withdrawal - Tachycardic/hypertensive, tele monitoring - elevated LFTs, Continue Ativan 2mg q4 dariel, ativan 2mg q2 prn. Will taper as needed. - Continue CIWA protocol - banana bag completed. Will restart if clinically indicated. - PT/OT eval consulted. Will f/u with rec's tomorrow. Transaminitis - Liver enzymes trending.Hx ETOH abuse . Will monitor with serial cbc's. - Hep panel still pending. F/U with results tomorrow. Hypokalemia - Supplemented - Fu Mg/Phos replete as needed Multiple contusions - 2/2 mechanical falls 2/2 ETOH intox - Motrin Prn - CTH/Elbow/Knee/Rib XRay negative for fractures or acute pathology - Hide Or Skin Buffer consulted. F/u with rec's tomorrow. Leukocytosis - likely reactive from multiple falls - Continue to monitor for fevers/signs of infx Depression - Continue Cymbalta - Not currently having SI/HI - Psychology Consulted, Dr. Couch. Will f/u with rec's tomorrow. DVT/GI ppx: Heparin/Protonix <Ken Matthew - Last Filed: 05/06/17 18:23> Objective - Vital Signs/Intake and Output Vital Signs (last 24 hours): Temp Pulse Resp BP Pulse Ox 98.2 F 96 H 20 130/63 98 05/06/17 12:00 05/06/17 12:00 05/06/17 12:00 05/06/17 12:00 05/06/17 06:00 Intake and Output: 05/06/17 05/06/17 06:59 18:59 Intake Total 1400 240 Balance 1400 240 - Medications Medications: Current Medications Albuterol Sulfate (Albuterol 0.083% Inhal Melissa (2.5 Mg/3 Ml) Ud) 2.5 mg IH [id number] PRN PRN Reason: Shortness of Breath Arformoterol Tartrate (Brovana) 15 mcg IH [id number] [facility] Last Admin: 05/06/17 07:32 Dose: 15 mcg Budesonide (Pulmicort Respules) 0.5 mg IH [id number] [facility] Last Admin: 05/06/17 07:32 Dose: 0.5 mg Duloxetine HCl (Cymbalta) 20 mg PO BID [facility] Last Admin: 05/06/17 09:30 Dose: 20 mg Folic Acid (Folic Acid) 1 mg PO DAILY [facility] Ibuprofen (Motrin Tab) 600 mg PO Q6H PRN PRN Reason: Pain, moderate (4-7) Last Admin: 05/06/17 04:04 Dose: 600 mg Lorazepam (Ativan) 2 mg IVP Q2H PRN; Protocol PRN Reason: Symptoms of alcohol withdrawl Lorazepam (Ativan) 2 mg IVP Q6H DARIEL PRN Reason: Protocol Last Admin: 05/06/17 13:16 Dose: 2 mg Multivitamins (Thera Tab) 1 tab PO 0800 DARIEL Pantoprazole Sodium (Protonix Ec Tab) 40 mg PO 0600 DARIEL Last Admin: 05/06/17 05:22 Dose: 40 mg Quetiapine Fumarate (Seroquel) 25 mg PO HS DARIEL PRN Reason: Protocol Thiamine HCl (Vitamin B1 Tab) 100 mg PO DAILY DARIEL - Labs Labs: 05/06/17 07:34 05/06/17 07:34 APTT 26.4 Seconds (23.7-30.8) 05/05/17 13:50 Attending/Attestation - Attestation I have personally seen and examined this patient.: Yes I have fully participated in the care of the patient.: Yes I have reviewed all pertinent clinical information, including history, physical exam and plan: Yes Notes (Text): 05/06/17 18:20 36 year old female with past medical history of alcohol abuse and depression who presents with alcohol withdrawal. Continue with multivitamin, folic acid and thiamine. Continue with tapering ativan dariel and prn dose for withdrawal symptoms. She was counselled on alcohol cessation. She was seen by psychiatrist; will follow up with recommendations. She admits to recent falls. Xray imaging studies are negative. PT evaluation requested for tomorrow. Elevated LFTs and thrombocytopenia likely secondary to chronic ETOH abuse. Hepatitis panel is pending. Will continue to monitor. Will replete and repeat lytes. Leukocytosis has improved. She is on SCDs for DVT prophylaxis and will switch protonix to pepcid due to thrombocytopenia. Ken Mattehw MD Hospitalist.
[2017-05-06 18:45] VITALS: BP 108/65; RESP 19; TEMP 98; O2SAT 100
[2017-05-06 19:07] VITALS: PULSE 100
--- NOTE | 2017-05-06 22:21 | CON ---
DATE: HISTORY OF PRESENT ILLNESS: The patient is a 36-year-old female with a history of depression and alcohol dependence, who was admitted for alcohol withdrawal symptoms, which include hallucinations consistent with DTs. Psychiatry was consulted to follow up the patient's complaints of depression. I reviewed prior noted, which indicated the patient also presented to the ER on 04/28/2017 approximately a week ago after her sister called EMS in [place] because the patient stated she was going to kill herself. The patient had made that statement while she was intoxicated and she did not have a plan at that time and she was eventually discharged from the ER. I met with the patient at bedside and she appears quite fatigued and her eye contact is poor and the patient is oriented to location, month, year, and circumstances, and she admits that she has been depressed; however, she denies having any suicidal or homicidal thoughts. Her thought process is coherent, although she is only superficially cooperative and very reluctant to engage in a interview with me. The patient indicates that she goes to outpatient facility called [facility] in [place] and she has prescribed Cymbalta; however, does not recall her current dose. She denies any current hallucinations at this time and does not appear to be hallucinating; however, she is quite internally preoccupied and affect is generally irritable. The patient refuses to continue with the interview indicating that she is in discomfort and she was not unaware that she is going to have a psychiatric evaluation. However, the patient appeared to be agreeable to Psychiatry following up with her tomorrow to discuss current symptoms and possibility of helping her while she is being hospitalized for alcohol withdrawal. PHYSICAL EXAMINATION: VITAL SIGNS: Reviewed and they are 98.1, 86, 146/99, and 20 at 6 a.m. this morning. LABORATORY DATA: Labs were also reviewed by this provider and the patient discharge transaminitis, which appears to be improving since yesterday, 162 and 122 AST and ALT, 135 and 111 respectively today. at presentation was 100. UDS was negative. Salicylate value of 4. Acetaminophen level was less than 10. MEDICATIONS: Relevant psychiatric medications include Cymbalta 20 mg daily and the patient is also being treated for alcohol withdrawal with Ativan 2 mg IV q. 2 hours p.r.n. as well as 2 mg IV q. 4 hours. IMPRESSION: 1. Depression, not otherwise specified, rule out major depressive disorder, rule out the contribution of substance-induced mood disorder. 2. Alcohol dependence today. The patient is also going through alcohol withdrawal with likely delirium symptoms and she presented with hallucinations as well. PSYCHIATRIC AND SOCIAL HISTORY: Psychiatric and social history could not fully be obtained due to the patient's unwillingness to participate in the interview; however, she did indicate that she has never been hospitalized in the Psychiatric Unit before. She denied any prior history of suicide attempt and that she attends [facility] in [place] and that she is prescribed Cymbalta at an unknown dose. The patient also reports that she was born in [place]. RECOMMENDATIONS: 1. Medical team should continue to treat the patient's alcohol withdrawal with Ativan and please taper as her vitals tolerate; vital signs still continue to be elevated this morning, of note. 2. Cymbalta. I will increase to 20 mg daily as a subtherapeutic dose for depression regardless. 3. We will add Seroquel 25 mg at bedtime to help with the patient's sleep and history of hallucinations and the patient was also irritable this morning, this might also help to keep her calm on the unit so that she is not a danger to herself or others while she is going through this withdrawal process. 4. Psychiatry will continue to follow up with her to monitor her tolerance to medications as well as her symptoms of depression and discuss possible transfer to the Psychiatric Unit if she would like further mental health stabilization in this respect.. Jeanie Gilmore MD
--- NOTE | 2017-05-06 22:36 | CP.PCM.DIS ---
Provider - Provider Date of Admission: 05/05/17 12:12 Attending physician: Ken Matthew MD Primary care physician: Maru Profile Required Time Spent in preparation of Discharge (in minutes): 38 Hospital Course - Lab Results Lab Results: Most Recent Lab Values WBC 4.6 10^3/ul (4.5-11.0) D 05/06/17 07:34 RBC 4.30 10^6/uL (3.5-6.1) 05/06/17 07:34 Hgb 12.2 g/dL (12.0-16.0) D 05/06/17 07:34 Hct 35.8 % (36.0-48.0) L 05/06/17 07:34 MCV 83.3 fl (80.0-105.0) 05/06/17 07:34 MCH 28.4 pg (25.0-35.0) 05/06/17 07:34 MCHC 34.1 g/dl (31.0-37.0) 05/06/17 07:34 RDW 14.2 % (11.5-14.5) 05/06/17 07:34 Plt Count 74 10^3/uL (120.0-450.0) L 05/06/17 07:34 MPV 10.0 fl (7.0-11.0) 05/06/17 07:34 Gran % 52.7 % (50.0-68.0) 05/06/17 07:34 Lymph % (Auto) 38.1 % (22.0-35.0) H 05/06/17 07:34 [place] % (Auto) 7.2 % (1.0-6.0) H 05/06/17 07:34 Eos % (Auto) 1.3 % (1.5-5.0) L 05/06/17 07:34 Baso % (Auto) 0.7 % (0.0-3.0) 05/06/17 07:34 Gran # 2.42 (1.4-6.5) 05/06/17 07:34 Lymph # 1.8 (1.2-3.4) 05/06/17 07:34 [place] # 0.3 (0.1-0.6) 05/06/17 07:34 Eos # 0.1 (0.0-0.7) 05/06/17 07:34 Baso # 0.03 K/mm3 (0.0-2.0) 05/06/17 07:34 APTT 26.4 Seconds (23.7-30.8) 05/05/17 13:50 Sodium 136 mmol/L (132-148) 05/06/17 07:34 Potassium 3.4 mmol/L (3.6-5.0) L 05/06/17 07:34 Chloride 100 mmol/L (95-110) 05/06/17 07:34 Carbon Dioxide 29 mmol/L (21-33) 05/06/17 07:34 Anion Gap 10 (10-20) 05/06/17 07:34 BUN 8 mg/dL (7-21) 05/06/17 07:34 Creatinine 0.6 mg/dL (0.7-1.2) L 05/06/17 07:34 Est GFR ( Amer) > 60 05/06/17 07:34 Est GFR (Non-Af Amer) > 60 05/06/17 07:34 POC Glucose (mg/dL) 123 mg/dL (65-110) H 05/06/17 11:31 Random Glucose 130 mg/dL (70-110) H 05/06/17 07:34 Calcium 8.4 mg/dL (8.4-10.5) 05/06/17 07:34 Phosphorus 2.4 mg/dL (2.5-4.5) L 05/06/17 07:34 Magnesium 1.8 mg/dL (1.7-2.2) 05/06/17 07:34 Total Bilirubin 1.7 mg/dL (0.2-1.3) H 05/06/17 07:34 AST 135 U/L (14-36) H 05/06/17 07:34 ALT 111 U/L (7-56) H 05/06/17 07:34 Alkaline Phosphatase 110 U/L (38-126) 05/06/17 07:34 Total Creatine Kinase 1560 U/L (35-230) H 05/05/17 10:00 CK-MB (CK-2) 26.4 ng/mL (0.0-3.6) H 05/05/17 10:00 CK-MB (CK-2) % 1.7 % (2.5-3.0) L 05/05/17 10:00 Total Protein 6.2 g/dL (5.8-8.3) 05/06/17 07:34 Albumin 3.3 g/dL (3.0-4.8) 05/06/17 07:34 Globulin 2.9 gm/dL 05/06/17 07:34 Albumin/Globulin Ratio 1.1 (1.1-1.8) 05/06/17 07:34 Urine Color Light brown (YELLOW) 05/05/17 10:00 Urine Appearance Sl cloudy (CLEAR) 05/05/17 10:00 Urine pH 6.0 (4.7-8.0) 05/05/17 10:00 Ur Specific [place] >= 1.030 (1.005-1.035) 05/05/17 10:00 Urine Protein 100 mg/dL (<30 mg/dL) H 05/05/17 10:00 Urine Glucose (UA) Negative mg/dL (NEGATIVE) 05/05/17 10:00 Urine Ketones 40 mg/dL (NEGATIVE) H 05/05/17 10:00 Urine Blood Large (NEGATIVE) H 05/05/17 10:00 Urine Nitrate Negative (NEGATIVE) 05/05/17 10:00 Urine Bilirubin Small (NEGATIVE) H 05/05/17 10:00 Urine Urobilinogen 1.0 E.U./dL (<1 E.U./dL) H 05/05/17 10:00 Ur Leukocyte Esterase Negative Mary/uL (NEGATIVE) 05/05/17 10:00 Urine RBC 25 - 30 /hpf (0-2) 05/05/17 10:00 Urine WBC 0 - 2 /hpf (0-6) 05/05/17 10:00 Ur Epithelial Cells 6 - 8 /hpf (0-5) 05/05/17 10:00 Amorphous Sediment Few 05/05/17 10:00 Urine Bacteria Many (NEG) 05/05/17 10:00 Hyaline Casts 2 - 5 /hpf 05/05/17 10:00 Fine Granular Casts 0 - 2 /hpf (0-2) 05/05/17 10:00 Urine Other Uyeast 05/05/17 10:00 Urine HCG, Qual Negative (NEGATIVE) 05/05/17 10:00 Salicylates 4 mg/dL (2.0-20.0) 05/05/17 10:00 Urine Opiates Screen Negative (NEGATIVE) 05/05/17 10:00 Urine Methadone Screen Negative (NEGATIVE) 05/05/17 10:00 Acetaminophen < 10.0 ug/ml (10.0-20.0) L 05/05/17 10:00 Ur Barbiturates Screen Negative (NEGATIVE) 05/05/17 10:00 Ur Phencyclidine Scrn Negative (NEGATIVE) 05/05/17 10:00 Ur Amphetamines Screen Negative (NEGATIVE) 05/05/17 10:00 U Benzodiazepines Scrn Negative (NEGATIVE) 05/05/17 10:00 U Oth Cocaine Metabols Negative (NEGATIVE) 05/05/17 10:00 U Cannabinoids Screen Negative (NEGATIVE) 05/05/17 10:00 Alcohol, Quantitative 100 mg/dL (0-10) H 05/05/17 10:00 Discharge Exam - Head Exam Head Exam: ATRAUMATIC, NORMAL INSPECTION, NORMOCEPHALIC Discharge Plan - Follow Up Plan Condition: FAIR Disposition: AGAINST MEDICAL ADVICE Referrals: [facility], [Primary Care Provider] -
[2017-05-07] MEDS ORDERED: Multivitamin Therapeutic Tab PO SCH (08:00)
--- NOTE | 2017-05-07 08:35 | CP.PCM.PCO ---
Physician Communication Note - Physician Communication Note Physician Communication Note: pt was d/c
== END 2017-05-06 19:49 | disposition left against medical advice (07) | DRG 894 ==
LOC: ED 09:33 → ERH 12:12 → 2RSO 16:36
PROVIDERS: ADMIT Internal Medicine; ATTEND Internal Medicine
DX: F10.231 Alcohol dependence with withdrawal delirium (principal); D69.59 Other secondary thrombocytopenia; D72.829 Elevated white blood cell count, unspecified; E87.6 Hypokalemia; F17.200 Nicotine dependence, unspecified, uncomplicated; S00.83XA Contusion of other part of head, initial encounter; F32.89 Other specified depressive episodes; J45.909 Unspecified asthma, uncomplicated; R29.6 Repeated falls; Z88.1 Allergy status to other antibiotic agents; R74.0 Nonspecific elevation of levels of transaminase and lactic acid dehydrogenase [LDH]; S50.02XA Contusion of left elbow, initial encounter; S50.01XA Contusion of right elbow, initial encounter; S80.02XA Contusion of left knee, initial encounter; S80.01XA Contusion of right knee, initial encounter

== ENCOUNTER 2017-05-12 11:04 | Inpatient (IN) | payer OTHER ==
[2017-05-12] MEDS ORDERED: Multivitamin (MVI) 10 ML, Thiamine 100 MG, Folic Acid 1 MG in Dextrose 5% In Water 1,00... IV ONE ×2 (11:34→15:44)
[2017-05-12 12:25] LABS: PH,URINE 6.5 (4.7-8.0); URINE BILIRUBIN NEGATIVE (NEGATIVE); URINE BLOOD SMALL (NEGATIVE); URINE GLUCOSE (UA) NEGATIVE (NEGATIVE); URINE KETONE 40 mg/dL (NEGATIVE); URINE LEUKOCYTE ESTERASE NEGATIVE Leu/uL (NEGATIVE); URINE PROTEIN 30 mg/dL (<30 mg/dL); URINE UROBILINOGEN 0.2 E.U./dL (<1 E.U./dL)
[2017-05-12 12:26] LABS: BASO # 0.02 K/mm3 (0.0-2.0); BASO % 0.3 % (0.0-3.0); EOS % 0.3 % (1.5-5.0); GRAN # 5.54 (1.4-6.5); HEMATOCRIT 40.7 % (36.0-48.0); LYMPH # 1.6 (1.2-3.4); LYMPH % 20.5 % (22.0-35.0); MEAN CELL VOLUME 84.4 fl (80.0-105.0); MEAN CORPUSCULAR HEMOGLOBIN 28.8 pg (25.0-35.0); MEAN CORPUSCULAR HGB CONC 34.2 g/dl (31.0-37.0); MEAN PLATELET VOLUME 9.6 fl (7.0-11.0); MONO # 0.6 (0.1-0.6); MONO % 7.9 % (1.0-6.0); RED CELL DISTRIBUTION WIDTH 14.7 % (11.5-14.5); WHITE BLOOD COUNT 7.8 10^3/ul (4.5-11.0)
[2017-05-12 12:27] LABS: URINE APPEARANCE SLIGHT-CLOUDY (CLEAR); URINE COLOR YELLOW (YELLOW)
--- NOTE | 2017-05-12 12:32 | ED PDOC ---
Arrival/HPI - General Historian: Patient, Parent - History of Present Illness Time/Duration: 24 hours Symptom Course: Worsening Activities at Onset: Rest, Light Context: Home <ERASMO LI - Last Filed: 05/12/17 18:53> <Kelechi Culp - Last Filed: 05/12/17 19:33> - General Chief Complaint: Alcohol Ingestion Time Seen by Provider: 05/12/17 11:14 - History of Present Illness Narrative History of Present Illness (Text): 05/12/17 12:24 Ms. Harris is a 36 year old female with a past medical history significant for alcohol abuse, alcohol withdrawal, depression and asthma who [place] [facility] with a chief complaint of alcohol withdrawal. Patient states that her last drink was at 1800 yesterday evening and since that time she has had high blood pressure, shaking and difficulty sleeping. Patient also reports nausea with two episodes of associated nonbloody nonbilious vomiting. Patient states that she usually drinks one gallon of vodka over the course of two days. Patients mother reports that last night, in order to help her daughter sleep, she gave her a 25mg amlodipine and two 10mg citaloprams. Patient denies any fever, chills, headache, changes in her vision, chest pain, palpitations, SOB, cough, wheezing, diarrhea, constipation, burning with urination, rash, seizure or any numbness/tingling/weakness of any of her extremities. (ERASMO LI) Past Medical History - Provider Review Nursing Documentation Reviewed: Yes - Travel History Have you recently traveled outside [place] w/in the past 3 mons?: No - Past History Past History: Non-Contributing - Infectious Disease Hx of Infectious Diseases: None - Cardiac Hx Cardiac Disorders: No Hx Hypertension: No - Pulmonary Hx Respiratory Disorders: Yes Hx Asthma: Yes Hx Tuberculosis: No - Neurological Hx Neurological Disorder: No HX Cerebrovascular Accident: No Hx Seizures: No - HEENT Hx HEENT Disorder: No - Renal Hx Renal Disorder: No - Endocrine/Metabolic Hx Endocrine Disorders: No - Hematological/Oncological Hx Blood Disorders: No Hx Cancer: No - Integumentary Hx Dermatological Disorder: No - Musculoskeletal/Rheumatological Hx Musculoskeletal Disorders: Yes Hx Falls: Yes (MULTIPLE FALLS FROM DRINKING ALCOHOL) - Gastrointestinal Hx Gastrointestinal Disorders: No - Genitourinary/Gynecological Hx Genitourinary Disorders: No Hx Sexually Transmitted Diseases: No - Psychiatric Hx Psychophysiologic Disorder: Yes Hx Depression: Yes Hx Substance Use: No Other/Comment: suicide attempt, daily alcohol consumption,DRINKS VODKA BINGE DRINKS - Anesthesia Hx Anesthesia: No Hx Anesthesia Reactions: No Hx Malignant Hyperthermia: No <ERIK LIALL - Last Filed: 05/12/17 18:53> Family/Social History - Physician Review Nursing Documentation Reviewed: Yes Family/Social History: No Known Family HX Smoking Status: Current Some Days Smoker Hx Alcohol Use: Yes Frequency of alcohol use: Daily Hx Substance Use: No <ERASMO LI - Last Filed: 05/12/17 18:53> Allergies/Home Meds <ERASMO LI - Last Filed: 05/12/17 18:53> <Kelechi Culp - Last Filed: 05/12/17 19:33> Allergies/Adverse Reactions: Allergies Tetracyclines Adverse Reaction (Verified 05/12/17 11:20) RASH Home Medications: Home Meds Medication Instructions Recorded Confirmed DULoxetine [Cymbalta] 120 mg PO DAILY 04/28/17 05/12/17 Fluticasone/Salmeterol 500/50 1 puff IH Q12 05/05/17 05/12/17 [Advair Diskus] Fexofenadine/Pseudoephedrine 1 tab PO DAILY 05/12/17 05/12/17 [Velma-D 24 Hour Tablet] Review of Systems - Physician Review All systems were reviewed & negative as marked: Yes - Review of Systems Constitutional: Normal. absent: Fevers, Night Sweats Eyes: Normal. absent: Vision Changes ENT: Normal Respiratory: Normal. absent: SOB, Cough, Wheezing Cardiovascular: Normal. absent: Chest Pain, Palpitations Gastrointestinal: Abdominal Pain, Nausea, Vomiting. absent: Normal, Constipation, Diarrhea Genitourinary Female: Normal. absent: Dysuria Musculoskeletal: Normal. absent: Back Pain, Neck Pain Skin: Normal. absent: Rash Neurological: Other (endorses shaking). absent: Normal, Headache, Seizure Endocrine: Normal Hemo/Lymphatic: Normal Psychiatric: Normal <ERASMO LI - Last Filed: 05/12/17 18:53> Physical Exam Vital Signs Reviewed: Yes Temperature: Afebrile Blood Pressure: Hypertensive Pulse: Tachycardic Respiratory Rate: Normal Appearance: Positive for: Well-Appearing, Non-Toxic, Uncomfortable Pain Distress: None Mental Status: Positive for: Alert and Oriented X 3 - Systems Exam Head: Present: Atraumatic, Normocephalic Pupils: Present: PERRL Extroacular Muscles: Present: EOMI Conjunctiva: Present: Normal Mouth: Present: Moist Mucous Membranes Pharnyx: Present: Normal. No: ERYTHEMA, EXUDATE, TONSILS ENLARGED Nose (Internal): Present: Normal Inspection Neck: Present: Normal Range of Motion, Trachea Midline. No: Meningeal Signs, MIDLINE TENDERNESS, Paraspinal Tenderness, JVD, Lymphadenopathy Respiratory/Chest: Present: Clear to Auscultation, Good Air Exchange. No: Respiratory Distress, Accessory Muscle Use, Wheezes, Decreased Breath Sounds, Rales, Retracting, Rhonchi, Tachypneic, Tender to Palpation Cardiovascular: Present: Normal S1, S2, Peripheal Pulses Present, Tachycardic. No: Regular Rate and Rhythm, Murmurs, Irregular Rhythm, Bradycardic, Rub, Gallop , Muffled Abdomen: Present: Tenderness (Mild epigastgric TTP), Normal Bowel Sounds. No: Distention, Peritoneal Signs, Rebound, Guarding Back: Present: Normal Inspection. No: CVA Tenderness, Midline Tenderness, Paraspinal Tenderness Upper Extremity: Present: Normal ROM, NORMAL PULSES, Norm 2-Pt Discrimination, Other (Multiple contusions scattered over both upper extremities). No: Normal Inspection, Cyanosis, Edema Lower Extremity: Present: Normal Inspection. No: Edema Neurological: Present: GCS=15, CN II-XII Intact, Speech Normal, Motor Func Grossly Intact, Normal Sensory Function, Other (Resting tremor) Skin: Present: Warm, Dry, Normal Color. No: Rashes Lymphatic: No: Cervical Adenopathy Psychiatric: Present: Alert, Oriented x 3, Normal Insight, Normal Concentration <ERASMO LI - Last Filed: 05/12/17 18:53> Vital Signs Temp Pulse Resp BP Pulse Ox 05/12/17 15:09 89 18 143/98 H 100 05/12/17 13:15 90 17 149/100 H 100 05/12/17 11:20 99 F 98 H 16 159/93 H 97 Medical Decision Making Re-evaluation Time: 13:23 Reassessment Condition: Improving,but remains with symptoms - Lab Interpretations I have reviewed the lab results: Yes - RAD Interpretation Ingot Caster: Radiologist - EKG Interpretation Interpreted by ED Physician: Yes Type: 12 lead EKG <ERASMO LI - Last Filed: 05/12/17 18:53> <Kelechi Culp - Last Filed: 05/12/17 19:33> ED Course and Treatment: 05/12/17 12:36 Impression: 36 year old female with a past medical history significant for alcohol abuse, alcohol withdrawal, depression and asthma who presents [place] [facility] with a chief complaint of alcohol withdrawal Plan: -CBC, CMP, UA, Lipase/Amylase, Alcohol Level, Mag/Phos -Banana Bag in D5W (Bolus) -Ativan 2mg IVP -Alcohol Withdrawal Assessment -EKG, Chest X-Ray -Reassess and Disposition Prior Visits: All results and reports from previous visits were reviewed. Patient was seen and evaluated for alcohol withdrawal on 05/05/17 (ERASMO LI) In agreement with resident note, which includes further HPI details. Patient was seen and evaluated with resident, came up with plan and treatment together. Patient presents with alcohol withdrawals. -- EKG shows NSR at 95 BPM Interpreted by me. On Exam patient was hypertension, Tachycardic and has hand tremors. Patient continued to have hand tremors after ativan and needs continued treatment for alcohol with drawal. Case discussed with Dr. Tidwell who will admit to remote telemetry for alcohol with drawal. (Kelechi Culp) - Lab Interpretations Lab Results: 05/12/17 12:10 05/12/17 12:10 Lab Results 05/12/17 12:47: Urine Opiates Screen Negative, Urine Methadone Screen Negative, Ur Barbiturates Screen Negative, Ur Phencyclidine Scrn Negative, Ur Amphetamines Screen Negative, U Benzodiazepines Scrn Positive H, U Oth Cocaine Metabols Negative, U Cannabinoids Screen Negative 05/12/17 12:10: Urine Color Yellow, Urine Appearance Slight-cloudy, Urine pH 6.5 , Ur Specific [place] 1.020, Urine Protein 30 H, Urine Glucose (UA) Negative, Urine Ketones 40 H, Urine Blood Small H, Urine Nitrate Negative, Urine Bilirubin Negative, Urine Urobilinogen 0.2, Ur Leukocyte Esterase Negative, Urine RBC 0 - 2, Urine WBC 0 - 2, Ur Epithelial Cells 1 - 3, Urine Bacteria Small, Hyaline Casts 0 - 2, Urine Other Uyeast 05/12/17 12:10: Alcohol, Quantitative 67 H 05/12/17 12:10: Sodium 140, Potassium 3.2 L, Chloride 100, Carbon Dioxide 26, Anion Gap 17, BUN 16, Creatinine 0.8, Est GFR ( Amer) > 60, Est GFR (Non- Af Amer) > 60, Random Glucose 99, Calcium 9.4, Phosphorus 2.7, Magnesium 2.2, Total Bilirubin 0.9, AST 151 H, ALT 164 H, Alkaline Phosphatase 148 H D, Total Protein 7.9, Albumin 4.4, Globulin 3.5, Albumin/Globulin Ratio 1.3, Amylase 58, Lipase 108 05/12/17 12:10: WBC 7.8 D, RBC 4.82, Hgb 13.9, Hct 40.7, MCV 84.4, MCH 28.8, MCHC 34.2, RDW 14.7 H, Plt Count 165, MPV 9.6, Gran % 71.0 H, Lymph % (Auto) 20.5 L, [place] % (Auto) 7.9 H, Eos % (Auto) 0.3 L, Baso % (Auto) 0.3, Gran # 5.54 , Lymph # 1.6, [place] # 0.6, Eos # 0.0, Baso # 0.02 - RAD Interpretation Radiology Orders: 05/12/17 11:39 CHEST PORTABLE [RAD] Stat - EKG Interpretation EKG Interpretation (Text): 05/12/17 12:40 NSR at 95bpm (ERASMO LI) - Medication Orders Current Medication Orders: Chlordiazepoxide (Librium) 25 mg PO Q6H MANSI PRN Reason: Protocol Last Admin: 05/12/17 16:33 Dose: 25 mg Behavioural Document 05/12/17 16:33 RA (Rec: 05/12/17 16:33 RA [id number]) Maintenance Maintenance Dose No Nonmedicinal Nonmedicinal Interventions Redirect Therapeutic Communication Activity Give food/fluids Behavior Behavior for Medication: Anxiety Continuous crying/screaming/ yelling Re-Assess: Reassess Psych Meds Document 05/12/17 17:33 RA (Rec: 05/12/17 18:43 [facility] Reassess Psych Med Effective Duloxetine HCl (Cymbalta) 120 mg PO DAILY MANSI Multivitamins/Vitamin C 10 ml/Thiamine HCl 100 mg/ Folic Acid 1 mg/ Dextrose 1, 011.2 mls @ 100 mls/hr IV .Q10H7M ONE Stop: 05/13/17 01:50 Last Admin: 05/12/17 18:43 Dose: 100 mls/hr eMAR Start Stop Document 05/12/17 18:43 RA (Rec: 05/12/17 18:43 [id number]) Intravenous Solution Start Date 05/12/17 Start Time 18:43 End Date 05/13/17 End time 04:00 Total Infusion Time 557 Lorazepam (Ativan) 2 mg IVP Q6 PRN; Protocol PRN Reason: Seizure activity Last Admin: 05/12/17 16:34 Dose: 2 mg IVP Administration Document 05/12/17 16:34 RA (Rec: 05/12/17 16:34 [id number]) Charges for Administration # of IVP Administrations 1 Behavioural Document 05/12/17 16:34 RA (Rec: 05/12/17 16:34 [id number]) Maintenance Maintenance Dose No Nonmedicinal Nonmedicinal Interventions Redirect Therapeutic Communication Activity Give food/fluids Behavior Behavior for Medication: Anxiety Continuous crying/screaming/ yelling Re-Assess: Reassess Psych Meds Document 05/12/17 17:04 RA (Rec: 05/12/17 17:15 [id number]) Reassess Psych Med Effective Pantoprazole Sodium (Protonix Ec Tab) 40 mg PO 0600 MANSI Discontinued Medications Multivitamins/Vitamin C 10 ml/Thiamine HCl 100 mg/ Folic Acid 1 mg/ Dextrose 1, 011.2 mls @ 1,000 mls/hr IV .Q1H1M ONE Stop: 05/12/17 12:34 Last Admin: 05/12/17 12:49 Dose: 1,000 mls/hr eMAR Start Stop Document 05/12/17 12:49 (Rec: 05/12/17 12:49 [id number]) Intravenous Solution Start Date 05/12/17 Start Time 12:49 Lorazepam (Ativan) 2 mg IVP ONCE ONE PRN Reason: Protocol Stop: 05/12/17 11:56 Last Admin: 05/12/17 12:13 Dose: 2 mg IVP Administration Document 05/12/17 12:13 (Rec: 05/12/17 12:13 [id number]) Charges for Administration # of IVP Administrations 1 Re-Assess: Reassess Psych Meds Document 05/12/17 12:43 RA (Rec: 05/12/17 16:30 RA [id number]) Reassess Psych Med Ineffective-LIP notifed Potassium Chloride (K-Dur 20 Meq Er Tab) 40 meq PO STAT STA Stop: 05/12/17 13:05 Last Admin: 05/12/17 15:09 Dose: 40 meq <ERASMO LI - Last Filed: 05/12/17 18:53> - Scribe Statement The provider has reviewed the documentation as recorded by the Scribe <Kelechi Culp - Last Filed: 05/12/17 19:33> - Scribe Statement Tim Amaro All medical record entries made by the Scribe were at my direction and personally dictated by me. I have reviewed the chart and agree that the record accurately reflects my personal performance of the history, physical exam, medical decision making, and the department course for this patient. I have also personally directed, reviewed, and agree with the discharge instructions and disposition. (Kelechi Culp) Disposition/Present on Arrival - Present on Arrival Any Indicators Present on Arrival: No History of DVT/PE: No History of Uncontrolled Diabetes: No Urinary Catheter: No History of Decub. Ulcer: No History Surgical Site Infection Following: None - Disposition Have Diagnosis and Disposition been Completed?: Yes Disposition Time: 12:00 Patient Plan: Admission <ERASMO LI - Last Filed: 05/12/17 18:53> <Kelechi Culp - Last Filed: 05/12/17 19:33> - Disposition Diagnosis: Alcohol withdrawal Disposition: HOSPITALIZED Patient Problems: Current Active Problems Problem Status Onset Alcohol withdrawal Acute Condition: STABLE
[2017-05-12 12:43] LABS: ALB/GLOB RATIO 1.3 (1.1-1.8); ALKALINE PHOSPHATASE 148 U/L (38-126); ALT/SGPT 164 U/L (7-56); AMYLASE 58 U/L (35-125); AST/SGOT 151 U/L (14-36); BILIRUBIN,TOTAL 0.9 mg/dL (0.2-1.3); BLOOD UREA NITROGEN 16 mg/dL (7-21); CALCIUM 9.4 mg/dL (8.4-10.5); CARBON DIOXIDE 26 mmol/L (21-33); CHLORIDE 100 mmol/L (98-107); GFR AFRICAN-AMERICAN > 60; GLUCOSE,RANDOM 99 mg/dL (70-110); LIPASE 108 U/L (23-300); MAGNESIUM 2.2 mg/dL (1.7-2.2); PHOSPHOROUS 2.7 mg/dL (2.5-4.5); POTASSIUM 3.2 mmol/L (3.6-5.0); SODIUM 140 mmol/L (132-148); TOTAL PROTEIN 7.9 g/dL (5.8-8.3)
[2017-05-12] MEDS ORDERED: Potassium Chloride 20 mEq ER Tab PO STA (13:04)
[2017-05-12 13:09] LABS: URINE BACTERIA SMALL (NEG); URINE RBC 0 - 2 /hpf (0-2); URINE WBC 0 - 2 /hpf (0-6)
--- NOTE | 2017-05-12 13:58 | RAD ---
HISTORY: chest tenderness COMPARISON: No prior. FINDINGS: LUNGS: No active pulmonary disease. PLEURA: No significant pleural effusion identified, no pneumothorax apparent. CARDIOVASCULAR: Normal. OSSEOUS STRUCTURES: No significant abnormalities. VISUALIZED UPPER ABDOMEN: Normal. OTHER FINDINGS: None. IMPRESSION: No active disease.
--- NOTE | 2017-05-12 16:06 | CP.PCM.HP ---
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 Patient states she drank a gallon of vodka yesterday at 6pm. Patient also states she has not been able to sleep in 2 days and has felt anxious and panicky. She has been drinking a gallon of vodka a day now for 2 weeks. Prior to the two weeks she was sober for four months but issues between her and her have led her to drink excessively again. She currently denies any suicidal or homicidal idealations. She states she felt palpitations, but denies any currently. She denied passing out but states she has fallen yesterday when she was intoxicated. Today she had one episode of non bloody bilious vomit and currently has a headache. She also states she has numbness and tingling in her fingers and feet. The last meal she had was a chicken wrap in the ED. Patient denies any CP, SOB, abdominal pain, nausea, vomiting, fever, chills, sore throat, or any other complaints at this time. Past Medical History: ETOH abuse, Asthma, depression, HSV2 Past Surgical History: none Family History: none significant Allergies: tetracyclines- rash Social History: a gallon of vodka a day for past 2 weeks, denies tobacco use, but uses nicotine vape machine, denied illicit drug use Meds: Cymbalta, Acyclovir Present on Admission - Present on Admission Any Indicators Present on Admission: No Review of Systems - Constitutional Constitutional: Headache. absent: Anorexia, Chills, Fever, Night Sweats, Weakness - EENT Eyes: absent: Blurred Vision, Change in Vision Nose/Mouth/Throat: absent: Nasal Congestion, Nasal Discharge, Dry Mouth - Cardiovascular Cardiovascular: absent: Lightheadedness, Rapid Heart Rate - Respiratory Respiratory: absent: Dyspnea, Wheezing - Gastrointestinal Gastrointestinal: Vomiting. absent: Abdominal Pain, Constipation, Diarrhea, Nausea - Genitourinary Genitourinary: Difficulty Urinating - Reproductive: Female Additional comments: IUD device - Musculoskeletal Musculoskeletal: Numbness, Tingling Additional comments: NUmbness and tingling in fingers and feet biltaerally - Neurological Neurological: Numbness, Headaches, Tingling. absent: Dizziness, Syncope - Psychiatric Psychiatric: Anxiety, Depression. absent: Homicidal Ideation, Suicidal Ideation Past Patient History - Infectious Disease Hx of Infectious Diseases: None - Past Social History Smoking Status: Current Some Days Smoker - CARDIAC Hx Cardiac Disorders: No Hx Hypertension: No - PULMONARY Hx Respiratory Disorders: Yes Hx Asthma: Yes Hx Tuberculosis: No - NEUROLOGICAL Hx Neurological Disorder: No HX Cerebrovascular Accident: No Hx Seizures: No - HEENT Hx HEENT Problems: No - RENAL Hx Chronic Kidney Disease: No - ENDOCRINE/METABOLIC Hx Endocrine Disorders: No - HEMATOLOGICAL/ONCOLOGICAL Hx Blood Disorders: No Hx Cancer: No - INTEGUMENTARY Hx Dermatological Problems: No - MUSCULOSKELETAL/RHEUMATOLOGICAL Hx Musculoskeletal Disorders: Yes Hx Falls: Yes (MULTIPLE FALLS FROM DRINKING ALCOHOL) - GASTROINTESTINAL Hx Gastrointestinal Disorders: No - GENITOURINARY/GYNECOLOGICAL Hx Genitourinary Disorders: No Hx Sexually Transmitted Disorders: No - PSYCHIATRIC Hx Psychophysiologic Disorder: Yes Hx Depression: Yes Hx Substance Use: No Other/Comment: suicide attempt, daily alcohol consumption,DRINKS VODKA BINGE DRINKS - SURGICAL HISTORY Hx Surgeries: No - ANESTHESIA Hx Anesthesia: No Hx Anesthesia Reactions: No Hx Malignant Hyperthermia: No Meds Allergies/Adverse Reactions: Allergies Allergy/AdvReac Type Severity Reaction Status Date / Time Tetracyclines AdvReac RASH Verified 05/12/17 11:20 Physical Exam - Constitutional Appears: No Acute Distress - Head Exam Head Exam: ATRAUMATIC, NORMAL INSPECTION, NORMOCEPHALIC - Eye Exam Eye Exam: EOMI, Normal appearance, PERRL Pupil Exam: NORMAL ACCOMODATION, PERRL - ENT Exam ENT Exam: Mucous Membranes Moist, Normal Exam - Neck Exam Neck exam: Positive for: Normal Inspection. Negative for: Lymphadenopathy - Respiratory Exam Respiratory Exam: Clear to Auscultation Bilateral, NORMAL BREATHING PATTERN - Cardiovascular Exam Cardiovascular Exam: Tachycardia, +S1, +S2 - GI/Abdominal Exam GI & Abdominal Exam: Normal Bowel Sounds. absent: Guarding, Tenderness - Extremities Exam Additional comments: Multiple bruises and contusions bilaterally - Psychiatric Exam Psychiatric exam: Anxious, Depressed - Skin Skin Exam: Warm Additional comments: bruising on multiple locations all over Results - Vital Signs Recent Vital Signs: Last Vital Signs Temp 99 F 05/12/17 11:20 Pulse 89 05/12/17 15:09 Resp 18 05/12/17 15:09 BP 143/98 H 05/12/17 15:09 Pulse Ox 100 05/12/17 15:09 - Labs Result Diagrams: 05/12/17 12:10 05/12/17 12:10 Assessment & Plan - Assessment and Plan (Free Text) Assessment: 36 yo female with past medical history of ETOH abuse, Asthma, depression, 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 Patient states she drank a gallon of vodka yesterday at 6pm. Patient will be mionitored for alcohol withdrawal and transaminitis. Plan: 1. Alcohol Abuse- possible withdrawal -BP 143/98, continue to monitor -EKG ordered: normal sinus rhythm, pending official read -CBC ordered -BMP ordered -Banana bag started -Librium 25mg Q6H -Ativan 2mg PRN Q6 for withdrawal seizures -[facility] protocol -Magnesium and Phosphate ordered: within normal range -Alcohol level 67 -UDS ordered -placed on seizure and fall precautions -K 3.2, K given in ED, will continue to monitor 2. Questionable Fall-secondary to alcohol intoxication -currently no focal deficits -CT head without contrast ordered 3. Elevated LFTS- secondary to alcohol abuse -AST:151 -ALT:164 -Alk phosphate: 148 -Bilirubin .8 -Abdominal U/S ordered will f/u -continue to monitor liver function 4. Depression -continue home medicine cymbalta -not currently having any suicidal or homicidal idealations 5. GI/DVT prophylaxis -Protonix -Sequential compression device <Mejia Tidwell - Last Filed: 05/13/17 12:08> Results - Vital Signs Recent Vital Signs: Last Vital Signs Temp 98.3 F 05/13/17 08:27 Pulse 76 05/13/17 08:27 Resp 20 05/13/17 08:27 BP 122/78 05/13/17 08:27 Pulse Ox 96 05/13/17 08:27 - Labs Result Diagrams: 05/13/17 06:00 05/13/17 06:00 Labs: Laboratory Results - last 24 hr 05/13/17 05/13/17 06:00 06:00 WBC 3.1 L D RBC 4.11 Hgb 11.6 L D Hct 35.0 L MCV 85.2 MCH 28.2 MCHC 33.1 RDW 14.5 Plt Count 133 MPV 9.5 Gran % 41.6 L Lymph % (Auto) 39.0 H [place] % (Auto) 15.9 H Eos % (Auto) 2.9 Baso % (Auto) 0.6 Gran # 1.28 L Lymph # 1.2 Latimer # 0.5 Eos # 0.1 Baso # 0.02 Sodium 137 Potassium 3.5 L Chloride 98 Carbon Dioxide 32 Anion Gap 11 BUN 13 Creatinine 0.8 Est GFR ( Amer) > 60 Est GFR (Non-Af Amer) > 60 Random Glucose 97 Calcium 9.0 Total Bilirubin 1.2 AST 108 H D ALT 114 H Alkaline Phosphatase 104 Total Protein 6.6 Albumin 3.7 Globulin 3.0 Albumin/Globulin Ratio 1.2 Attending/Attestation - Attestation I have personally seen and examined this patient.: Yes I have fully participated in the care of the patient.: Yes I have reviewed all pertinent clinical information: Yes Notes (Text): 05/13/17 12:05 Patient was seen and examined with medical records supervisor. Agreed with resident assessment and plan. 36 F with PMH of alcohol abuse and elevated Transaminase is admitted with impending alcohol withdrawal and elevated LFT, Patient drinks 1-2 gallon of vodka every day.We will monitor patient in tele, we will start patient on IV fluid, Lebrium and PRN ativan. We will monitor electrolyte. Due to H/O fall, we will get CT head. We will also get right upper quadrant USG. Management plan was discussed in detail with patient and mother. Education was provided.
[2017-05-12 18:16] VITALS: BMI 28.3
--- NOTE | 2017-05-12 19:44 | CT ---
EXAM: CT Head Without Intravenous Contrast CLINICAL HISTORY: 36 years old, female; Injury or trauma; Fall; Initial encounter; Sprain or strain; Additional info: Possible fall TECHNIQUE: Axial computed tomography images of the head/brain without intravenous contrast. All CT scans at this facility use one or more dose reduction techniques, viz.: automated exposure control; ma/kV adjustment per patient size (including targeted exams where dose is matched to indication; i.e. head); or iterative reconstruction technique. COMPARISON: CT - HEAD W/O CONTRAST 2017-05-05 10:41 FINDINGS: Brain: No hemorrhage. No significant white matter disease. No edema. Ventricles: No hydrocephalus. Bones: Skull is intact. Soft tissues: Left scalp swelling as seen on prior study, correlate clinically. Sinuses: Partial visualization of maxillary sinus polyps versus mucous retention cyst. No acute sinusitis. Mastoid air cells: No mastoid effusion. IMPRESSION: No CT evidence of acute intracranial abnormality. Details as above.
--- NOTE | 2017-05-12 22:16 | CARD ---
APPROVED REPORT EKG Measurement Heart [id number] ND [id number] <Conclusion> Normal sinus rhythm Normal ECG
[2017-05-13 06:59] LABS: ALB/GLOB RATIO 1.2 (1.1-1.8); ALKALINE PHOSPHATASE 104 U/L (38-126); ALT/SGPT 114 U/L (7-56); AST/SGOT 108 U/L (14-36); BASO # 0.02 K/mm3 (0.0-2.0); BASO % 0.6 % (0.0-3.0); BILIRUBIN,TOTAL 1.2 mg/dL (0.2-1.3); BLOOD UREA NITROGEN 13 mg/dL (7-21); CARBON DIOXIDE 32 mmol/L (21-33); CHLORIDE 98 mmol/L (98-107); EOS # 0.1 (0.0-0.7); EOS % 2.9 % (1.5-5.0); GFR AFRICAN-AMERICAN > 60; GLUCOSE,RANDOM 97 mg/dL (70-110); GRAN # 1.28 (1.4-6.5); GRAN % 41.6 % (50.0-68.0); LYMPH # 1.2 (1.2-3.4); MEAN CELL VOLUME 85.2 fl (80.0-105.0); MEAN CORPUSCULAR HEMOGLOBIN 28.2 pg (25.0-35.0); MEAN CORPUSCULAR HGB CONC 33.1 g/dl (31.0-37.0); MEAN PLATELET VOLUME 9.5 fl (7.0-11.0); MONO # 0.5 (0.1-0.6); MONO % 15.9 % (1.0-6.0); POTASSIUM 3.5 mmol/L (3.6-5.0); RED CELL DISTRIBUTION WIDTH 14.5 % (11.5-14.5); SODIUM 137 mmol/L (132-148); TOTAL PROTEIN 6.6 g/dL (5.8-8.3); WHITE BLOOD COUNT 3.1 10^3/ul (4.5-11.0)
[2017-05-13] MEDS ORDERED: Potassium Chloride 40 mEq/30 ml LIQ UD PO STA (07:14)
[2017-05-13] MEDS: Pantoprazole 40 mg EC Tab PO SCH (08:07)
[2017-05-13] MEDS: Multivitamin Therapeutic Tab PO SCH (08:09)
[2017-05-13 08:28] VITALS: RESP 20
--- NOTE | 2017-05-13 12:05 | CP.PCM.PN ---
<Baljinder Thompson - Last Filed: 05/13/17 11:59> Subjective - Date & Time of Evaluation Date of Evaluation: 05/13/17 Time of Evaluation: 09:50 - Subjective Subjective: Medicine Progress Note: Pt seen and examined at bedside. No Acute events overnight. Pt receiving Ativan PRN for agitation. Currently denies any anxiety, agitation, or tremors. Denies any f/c, sob, palpitations, cp, abd pain, n/v/d. Objective - Vital Signs/Intake and Output Vital Signs (last 24 hours): Temp Pulse Resp BP Pulse Ox 98.3 F 76 20 122/78 96 05/13/17 08:27 05/13/17 08:27 05/13/17 08:27 05/13/17 08:27 05/13/17 08:27 Intake and Output: 05/13/17 05/13/17 06:59 18:59 Intake Total 480 Balance 480 - Medications Medications: Current Medications Chlordiazepoxide (Librium) 25 mg PO Q8H [facility] PRN Reason: Protocol Last Admin: 05/13/17 10:17 Dose: 25 mg Duloxetine HCl (Cymbalta) 120 mg PO DAILY [facility] Last Admin: 05/13/17 10:17 Dose: 120 mg Folic Acid (Folic Acid) 1 mg PO DAILY [facility] Last Admin: 05/13/17 10:18 Dose: 1 mg Lorazepam (Ativan) 2 mg IVP Q6 PRN; Protocol PRN Reason: Seizure activity Last Admin: 05/13/17 07:18 Dose: 2 mg Multivitamins (Thera Tab) 1 tab PO 0800 [facility] Last Admin: 05/13/17 08:09 Dose: 1 tab Pantoprazole Sodium (Protonix Ec Tab) 40 mg PO 0600 [facility] Last Admin: 05/13/17 08:07 Dose: 40 mg Thiamine HCl (Vitamin B1 Tab) 100 mg PO DAILY [facility] Last Admin: 05/13/17 10:18 Dose: 100 mg - Labs Labs: 05/13/17 06:00 05/13/17 06:00 - Constitutional Appears: No Acute Distress - Head Exam Head Exam: ATRAUMATIC, NORMOCEPHALIC - Eye Exam Eye Exam: EOMI, PERRL - ENT Exam ENT Exam: Mucous Membranes Moist - Respiratory Exam Respiratory Exam: Clear to Ausculation Bilateral. absent: Rales, Wheezes - Cardiovascular Exam Cardiovascular Exam: REGULAR RHYTHM, RRR, +S1, +S2 - GI/Abdominal Exam GI & Abdominal Exam: Soft. 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 Patient states she drank a gallon of vodka yesterday at 6pm. Patient will be mionitored for alcohol withdrawal and transaminitis. Plan: 1. Alcohol Abuse- possible withdrawal -EKG ordered: normal sinus rhythm, pending official read -CBC ordered, BMP ordered -Librium 25mg Q6H--> Q8H -Ativan 2mg PRN Q6 for withdrawal seizures -[facility] protocol -Alcohol level 67 -placed on seizure and fall precautions - started on folic acid, thiamine, and multivit - Psych consulted for recs 2. Questionable Fall-secondary to alcohol intoxication -currently no focal deficits -CT head without contrast - negative 3. Elevated LFTS- likely 2/2 alcohol abuse - F/u acute hep panel -AST:151 --> 108 -ALT:164--> 114 -f/u Abdominal U/S -continue to monitor liver function 4. Depression -continue home medicine cymbalta -not currently having any suicidal or homicidal idealations 5. GI/DVT prophylaxis -Protonix -SCDs Pt and plan was reviewed and discussed in detail with Dr Tidwell. <Mejia Tidwell - Last Filed: 05/13/17 12:11> Objective - Vital Signs/Intake and Output Vital Signs (last 24 hours): Temp Pulse Resp BP Pulse Ox 98.3 F 76 20 122/78 96 05/13/17 08:27 05/13/17 08:27 05/13/17 08:27 05/13/17 08:27 05/13/17 08:27 Intake and Output: 05/13/17 05/13/17 06:59 18:59 Intake Total 480 Balance 480 - Medications Medications: Current Medications Chlordiazepoxide (Librium) 25 mg PO Q8H MANSI PRN Reason: Protocol Last Admin: 05/13/17 10:17 Dose: 25 mg Duloxetine HCl (Cymbalta) 120 mg PO DAILY [facility] Last Admin: 05/13/17 10:17 Dose: 120 mg Folic Acid (Folic Acid) 1 mg PO DAILY [facility] Last Admin: 05/13/17 10:18 Dose: 1 mg Lorazepam (Ativan) 2 mg IVP Q6 PRN; Protocol PRN Reason: Seizure activity Last Admin: 05/13/17 07:18 Dose: 2 mg Multivitamins (Thera Tab) 1 tab PO 0800 [facility] Last Admin: 05/13/17 08:09 Dose: 1 tab Pantoprazole Sodium (Protonix Ec Tab) 40 mg PO 0600 [facility] Last Admin: 05/13/17 08:07 Dose: 40 mg Thiamine HCl (Vitamin B1 Tab) 100 mg PO DAILY [facility] Last Admin: 05/13/17 10:18 Dose: 100 mg - Labs Labs: 05/13/17 06:00 05/13/17 06:00 Attending/Attestation - Attestation I have personally seen and examined this patient.: Yes I have fully participated in the care of the patient.: Yes I have reviewed all pertinent clinical information, including history, physical exam and plan: Yes Notes (Text): 05/13/17 12:09 Patient was seen and examined with medical sales representative. Agreed with resident assessment and plan. 36 F with PMH of alcohol abuse and elevated Transaminase was admitted with impending alcohol withdrawal and elevated LFT, LFT are improving. Neuropenia is likely due to alcohol abuse. Alcohol withdrawal are improving. Management plan was discussed in detail with patient and mother. Education was provided.
--- NOTE | 2017-05-13 14:43 | US ---
HISTORY: Abnormal liver function COMPARISON: None. TECHNIQUE: Sonographic evaluation of the abdomen. FINDINGS: LIVER: Measures 15.0 x 12.5 cm. Increased echogenicity of the liver parenchyma. No mass. No intrahepatic bile duct dilatation. GALLBLADDER: Unremarkable. No gallstones. COMMON BILE DUCT: Measures 4.5 mm. No stones. No dilatation. PANCREAS: Not visualize RIGHT KIDNEY: Measures 10.2 x 4.46 x 5.52cm. Normal echogenicity. No calculus, mass, or hydronephrosis. LEFT KIDNEY: Measures 9.67 x 4.80 x 5.38cm. Normal echogenicity. No calculus, mass, or hydronephrosis. SPLEEN: Normal in size and contour. No mass. AORTA: Not visualize IVC: Not visualized OTHER FINDINGS: None. IMPRESSION: Severe fatty infiltration of the liver. Unremarkable gallbladder
[2017-05-14] MEDS: Pantoprazole 40 mg EC Tab PO SCH (06:03)
[2017-05-14 06:35] LABS: BASO # 0.02 K/mm3 (0.0-2.0); BASO % 0.8 % (0.0-3.0); EOS # 0.1 (0.0-0.7); GRAN # 0.97 (1.4-6.5); GRAN % 36.7 % (50.0-68.0); HEMATOCRIT 33.3 % (36.0-48.0); LYMPH # 1.1 (1.2-3.4); LYMPH % 43.2 % (22.0-35.0); MEAN CELL VOLUME 86.7 fl (80.0-105.0); MEAN CORPUSCULAR HEMOGLOBIN 28.4 pg (25.0-35.0); MEAN CORPUSCULAR HGB CONC 32.7 g/dl (31.0-37.0); MEAN PLATELET VOLUME 9.4 fl (7.0-11.0); MONO # 0.4 (0.1-0.6); MONO % 16.3 % (1.0-6.0); RED CELL DISTRIBUTION WIDTH 14.9 % (11.5-14.5)
[2017-05-14 06:37] LABS: WHITE BLOOD COUNT 2.6 10^3/ul (4.5-11.0)
[2017-05-14 07:26] LABS: ALB/GLOB RATIO 1.2 (1.1-1.8); ALKALINE PHOSPHATASE 96 U/L (38-126); ALT/SGPT 114 U/L (7-56); AST/SGOT 101 U/L (14-36); BILIRUBIN,TOTAL 0.8 mg/dL (0.2-1.3); BLOOD UREA NITROGEN 14 mg/dL (7-21); CALCIUM 8.9 mg/dL (8.4-10.5); CARBON DIOXIDE 29 mmol/L (21-33); CHLORIDE 103 mmol/L (95-110); GFR AFRICAN-AMERICAN > 60; GLUCOSE,RANDOM 96 mg/dL (70-110); POTASSIUM 3.8 mmol/L (3.6-5.0); SODIUM 139 mmol/L (132-148); TOTAL PROTEIN 6.4 g/dL (5.8-8.3)
[2017-05-14 08:22] VITALS: BP 126/86; PULSE 71; TEMP 97.6; O2SAT 98
[2017-05-14] MEDS: Multivitamin Therapeutic Tab PO SCH (10:14)
--- NOTE | 2017-05-14 13:44 | CP.PCM.PN ---
Subjective - Date & Time of Evaluation Date of Evaluation: 05/14/17 Time of Evaluation: 07:45 - Subjective Subjective: Patient seen and examined at bedside on general medical floor. Patient noted to have panic attack overnight, was given ativan with resolution of symptoms. This AM patient reports feeling very fatigued and tired after last evening. Denies auditory, visual hallucinations, fever, chills, tremors, or anxiety. Patient is educated on alcohol cessation and is understanding. Objective - Vital Signs/Intake and Output Vital Signs (last 24 hours): Temp Pulse Resp BP Pulse Ox 97.6 F 71 20 126/86 98 05/14/17 08:21 05/14/17 08:21 05/14/17 08:21 05/14/17 08:21 05/14/17 08:21 - Medications Medications: Current Medications Chlordiazepoxide (Librium) 25 mg PO Q8H [facility] PRN Reason: Protocol Last Admin: 05/14/17 10:11 Dose: 25 mg Duloxetine HCl (Cymbalta) 120 mg PO DAILY [facility] Last Admin: 05/14/17 10:12 Dose: 120 mg Folic Acid (Folic Acid) 1 mg PO DAILY [facility] Last Admin: 05/14/17 10:12 Dose: 1 mg Lorazepam (Ativan) 2 mg IVP Q6 PRN; Protocol PRN Reason: Seizure activity Last Admin: 05/13/17 20:34 Dose: 2 mg Multivitamins (Thera Tab) 1 tab PO 0800 [facility] Last Admin: 05/14/17 10:14 Dose: 1 tab Pantoprazole Sodium (Protonix Ec Tab) 40 mg PO 0600 [facility] Last Admin: 05/14/17 06:03 Dose: 40 mg Thiamine HCl (Vitamin B1 Tab) 100 mg PO DAILY [facility] Last Admin: 05/14/17 10:12 Dose: 100 mg - Labs Labs: 05/14/17 06:00 05/14/17 06:27 - Constitutional Appears: No Acute Distress - Head Exam Head Exam: ATRAUMATIC, NORMAL INSPECTION - Eye Exam Eye Exam: EOMI, PERRL - ENT Exam ENT Exam: Mucous Membranes Moist - Neck Exam Neck Exam: Full ROM - Respiratory Exam Respiratory Exam: Clear to Ausculation Bilateral, NORMAL BREATHING PATTERN - Cardiovascular Exam Cardiovascular Exam: REGULAR RHYTHM, +S1, +S2 - GI/Abdominal Exam GI & Abdominal Exam: Soft, Normal Bowel Sounds. 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 Patient reports drinking a gallon of vodka over two day spans. Patient is being Patient states she drank a gallon of vodka yesterday at 6pm. Patient will be mionitored for alcohol withdrawal and transaminitis. Plan: Alcohol Abuse - Librium 25mg Q12H - Ativan 2mg PRN Q6H for withdrawl - Thiamine, Folic acid, multivitamin - [facility] protocol - Seizure and fall precautions - Continue to monitor for withdrawl sxs Transaminitis - Likely secondary to alcohol intake - Trending downward
--- NOTE | 2017-05-14 16:00 | CP.PCM.DIS ---
<Antonino Larose - Last Filed: 05/14/17 16:04> Provider - Provider Date of Admission: 05/12/17 14:45 Attending physician: Ken Matthew MD Time Spent in preparation of Discharge (in minutes): 25 Hospital Course - Lab Results Lab Results: Most Recent Lab Values WBC 2.6 10^3/ul (4.5-11.0) L* 05/14/17 06:00 RBC 3.84 10^6/uL (3.5-6.1) 05/14/17 06:00 Hgb 10.9 g/dL (12.0-16.0) L 05/14/17 06:00 Hct 33.3 % (36.0-48.0) L 05/14/17 06:00 MCV 86.7 fl (80.0-105.0) 05/14/17 06:00 MCH 28.4 pg (25.0-35.0) 05/14/17 06:00 MCHC 32.7 g/dl (31.0-37.0) 05/14/17 06:00 RDW 14.9 % (11.5-14.5) H 05/14/17 06:00 Plt Count 125 10^3/uL (120.0-450.0) 05/14/17 06:00 MPV 9.4 fl (7.0-11.0) 05/14/17 06:00 Gran % 36.7 % (50.0-68.0) L 05/14/17 06:00 Lymph % (Auto) 43.2 % (22.0-35.0) H 05/14/17 06:00 [place] % (Auto) 16.3 % (1.0-6.0) H 05/14/17 06:00 Eos % (Auto) 3.0 % (1.5-5.0) 05/14/17 06:00 Baso % (Auto) 0.8 % (0.0-3.0) 05/14/17 06:00 Gran # 0.97 (1.4-6.5) L 05/14/17 06:00 Lymph # 1.1 (1.2-3.4) L 05/14/17 06:00 [place]ama # 0.4 (0.1-0.6) 05/14/17 06:00 Eos # 0.1 (0.0-0.7) 05/14/17 06:00 Baso # 0.02 K/mm3 (0.0-2.0) 05/14/17 06:00 Sodium 139 mmol/L (132-148) 05/14/17 06:27 Potassium 3.8 mmol/L (3.6-5.0) 05/14/17 06:27 Chloride 103 mmol/L (95-110) 05/14/17 06:27 Carbon Dioxide 29 mmol/L (21-33) 05/14/17 06:27 Anion Gap 11 (10-20) 05/14/17 06:27 BUN 14 mg/dL (7-21) 05/14/17 06:27 Creatinine 0.6 mg/dL (0.7-1.2) L 05/14/17 06:27 Est GFR ( Amer) > 60 05/14/17 06:27 Est GFR (Non-Af Amer) > 60 05/14/17 06:27 Random Glucose 96 mg/dL (70-110) 05/14/17 06:27 Calcium 8.9 mg/dL (8.4-10.5) 05/14/17 06:27 Phosphorus 2.7 mg/dL (2.5-4.5) 05/12/17 12:10 Magnesium 2.2 mg/dL (1.7-2.2) 05/12/17 12:10 Total Bilirubin 0.8 mg/dL (0.2-1.3) 05/14/17 06:27 AST 101 U/L (14-36) H 05/14/17 06:27 ALT 114 U/L (7-56) H 05/14/17 06:27 Alkaline Phosphatase 96 U/L (38-126) 05/14/17 06:27 Total Protein 6.4 g/dL (5.8-8.3) 05/14/17 06:27 Albumin 3.5 g/dL (3.0-4.8) 05/14/17 06:27 Globulin 2.9 gm/dL 05/14/17 06:27 Albumin/Globulin Ratio 1.2 (1.1-1.8) 05/14/17 06:27 Amylase 58 U/L (35-125) 05/12/17 12:10 Lipase 108 U/L (23-300) 05/12/17 12:10 Urine Color Yellow (YELLOW) 05/12/17 12:10 Urine Appearance Slight-cloudy (CLEAR) 05/12/17 12:10 Urine pH 6.5 (4.7-8.0) 05/12/17 12:10 Ur Specific [place] 1.020 (1.005-1.035) 05/12/17 12:10 Urine Protein 30 mg/dL (<30 mg/dL) H 05/12/17 12:10 Urine Glucose (UA) Negative mg/dL (NEGATIVE) 05/12/17 12:10 Urine Ketones 40 mg/dL (NEGATIVE) H 05/12/17 12:10 Urine Blood Small (NEGATIVE) H 05/12/17 12:10 Urine Nitrate Negative (NEGATIVE) 05/12/17 12:10 Urine Bilirubin Negative (NEGATIVE) 05/12/17 12:10 Urine Urobilinogen 0.2 E.U./dL (<1 E.U./dL) 05/12/17 12:10 Ur Leukocyte Esterase Negative Mary/uL (NEGATIVE) 05/12/17 12:10 Urine RBC 0 - 2 /hpf (0-2) 05/12/17 12:10 Urine WBC 0 - 2 /hpf (0-6) 05/12/17 12:10 Ur Epithelial Cells 1 - 3 /hpf (0-5) 05/12/17 12:10 Urine Bacteria Small (NEG) 05/12/17 12:10 Hyaline Casts 0 - 2 /hpf 05/12/17 12:10 Urine Other Uyeast 05/12/17 12:10 Urine Opiates Screen Negative (NEGATIVE) 05/12/17 12:47 Urine Methadone Screen Negative (NEGATIVE) 05/12/17 12:47 Ur Barbiturates Screen Negative (NEGATIVE) 05/12/17 12:47 Ur Phencyclidine Scrn Negative (NEGATIVE) 05/12/17 12:47 Ur Amphetamines Screen Negative (NEGATIVE) 05/12/17 12:47 U Benzodiazepines Scrn Positive (NEGATIVE) H 05/12/17 12:47 U Oth Cocaine Metabols Negative (NEGATIVE) 05/12/17 12:47 U Cannabinoids Screen Negative (NEGATIVE) 05/12/17 12:47 Alcohol, Quantitative 67 mg/dL (0-10) H 05/12/17 12:10 Hepatitis A IgM Ab Negative (NEGATIVE) 05/13/17 09:20 Hep Bs Antigen Negative (NEGATIVE) 05/13/17 09:20 Hep B Core IgM Ab Negative (NEGATIVE) 05/13/17 09:20 Hepatitis C Antibody Negative (NEGATIVE) 05/13/17 09:20 - Hospital Course Hospital Course: Patient is a 36 year old female with PMH of ETOH abuse, asthma, depression and HSV2 currently on suppression therapy who presented to [facility] ED on 05/12 compliniang of panic attacks and excessive alcohol intake. Patient had been drinking estimated gallon of vodka every 2 days for the past two weeks. Patient was evaluated in ED and found to have tremors, tachycardia and restlessness. She was given ativan for her symptoms. There was concern for falls, the patient had a head CT done showing no acute intracranial abnormalities. Abdominal US was done showing severe fatty infiltration of the liver and unremarkable gallbladder. Patient was admitted to the [facility] for continued observation of alcohol withdrawl. While on floor patient was treated with Librium and Ativan with reduction of her symptoms. Patient was seen and evaluated today. She was educated on alcohol cessation and the importance of appropriate treatment for her underlying psychiatric disorders. At the time of the interview patient had denied suicidal ideation, homicidal ideation, visual or auditory hallucinations. While awaiting psychiatry evaluation the patient eloped from the hospital. - Date & Time of H&P Date of H&P: 05/12/17 Time of H&P: 15:55 Discharge Exam - Head Exam Head Exam: ATRAUMATIC, NORMOCEPHALIC Discharge Plan - Follow Up Plan Condition: GUARDED Disposition: AGAINST MEDICAL ADVICE <Ken Matthew - Last Filed: 05/14/17 18:07> Provider - Provider Date of Admission: 05/12/17 14:45 Attending physician: Ken Matthew MD Hospital Course - Lab Results Lab Results: Most Recent Lab Values WBC 2.6 10^3/ul (4.5-11.0) L* 05/14/17 06:00 RBC 3.84 10^6/uL (3.5-6.1) 05/14/17 06:00 Hgb 10.9 g/dL (12.0-16.0) L 05/14/17 06:00 Hct 33.3 % (36.0-48.0) L 05/14/17 06:00 MCV 86.7 fl (80.0-105.0) 05/14/17 06:00 MCH 28.4 pg (25.0-35.0) 05/14/17 06:00 MCHC 32.7 g/dl (31.0-37.0) 05/14/17 06:00 RDW 14.9 % (11.5-14.5) H 05/14/17 06:00 Plt Count 125 10^3/uL (120.0-450.0) 05/14/17 06:00 MPV 9.4 fl (7.0-11.0) 05/14/17 06:00 Gran % 36.7 % (50.0-68.0) L 05/14/17 06:00 Lymph % (Auto) 43.2 % (22.0-35.0) H 05/14/17 06:00 [place]ama % (Auto) 16.3 % (1.0-6.0) H 05/14/17 06:00 Eos % (Auto) 3.0 % (1.5-5.0) 05/14/17 06:00 Baso % (Auto) 0.8 % (0.0-3.0) 05/14/17 06:00 Gran # 0.97 (1.4-6.5) L 05/14/17 06:00 Lymph # 1.1 (1.2-3.4) L 05/14/17 06:00 [place]ama # 0.4 (0.1-0.6) 05/14/17 06:00 Eos # 0.1 (0.0-0.7) 05/14/17 06:00 Baso # 0.02 K/mm3 (0.0-2.0) 05/14/17 06:00 Sodium 139 mmol/L (132-148) 05/14/17 06:27 Potassium 3.8 mmol/L (3.6-5.0) 05/14/17 06:27 Chloride 103 mmol/L (95-110) 05/14/17 06:27 Carbon Dioxide 29 mmol/L (21-33) 05/14/17 06:27 Anion Gap 11 (10-20) 05/14/17 06:27 BUN 14 mg/dL (7-21) 05/14/17 06:27 Creatinine 0.6 mg/dL (0.7-1.2) L 05/14/17 06:27 Est GFR ( Amer) > 60 05/14/17 06:27 Est GFR (Non-Af Amer) > 60 05/14/17 06:27 Random Glucose 96 mg/dL (70-110) 05/14/17 06:27 Calcium 8.9 mg/dL (8.4-10.5) 05/14/17 06:27 Phosphorus 2.7 mg/dL (2.5-4.5) 05/12/17 12:10 Magnesium 2.2 mg/dL (1.7-2.2) 05/12/17 12:10 Total Bilirubin 0.8 mg/dL (0.2-1.3) 05/14/17 06:27 AST 101 U/L (14-36) H 05/14/17 06:27 ALT 114 U/L (7-56) H 05/14/17 06:27 Alkaline Phosphatase 96 U/L (38-126) 05/14/17 06:27 Total Protein 6.4 g/dL (5.8-8.3) 05/14/17 06:27 Albumin 3.5 g/dL (3.0-4.8) 05/14/17 06:27 Globulin 2.9 gm/dL 05/14/17 06:27 Albumin/Globulin Ratio 1.2 (1.1-1.8) 05/14/17 06:27 Amylase 58 U/L (35-125) 05/12/17 12:10 Lipase 108 U/L (23-300) 05/12/17 12:10 Urine Color Yellow (YELLOW) 05/12/17 12:10 Urine Appearance Slight-cloudy (CLEAR) 05/12/17 12:10 Urine pH 6.5 (4.7-8.0) 05/12/17 12:10 Ur Specific [place]ix 1.020 (1.005-1.035) 05/12/17 12:10 Urine Protein 30 mg/dL (<30 mg/dL) H 05/12/17 12:10 Urine Glucose (UA) Negative mg/dL (NEGATIVE) 05/12/17 12:10 Urine Ketones 40 mg/dL (NEGATIVE) H 05/12/17 12:10 Urine Blood Small (NEGATIVE) H 05/12/17 12:10 Urine Nitrate Negative (NEGATIVE) 05/12/17 12:10 Urine Bilirubin Negative (NEGATIVE) 05/12/17 12:10 Urine Urobilinogen 0.2 E.U./dL (<1 E.U./dL) 05/12/17 12:10 Ur Leukocyte Esterase Negative Mary/uL (NEGATIVE) 05/12/17 12:10 Urine RBC 0 - 2 /hpf (0-2) 05/12/17 12:10 Urine WBC 0 - 2 /hpf (0-6) 05/12/17 12:10 Ur Epithelial Cells 1 - 3 /hpf (0-5) 05/12/17 12:10 Urine Bacteria Small (NEG) 05/12/17 12:10 Hyaline Casts 0 - 2 /hpf 05/12/17 12:10 Urine Other Uyeast 05/12/17 12:10 Urine Opiates Screen Negative (NEGATIVE) 05/12/17 12:47 Urine Methadone Screen Negative (NEGATIVE) 05/12/17 12:47 Ur Barbiturates Screen Negative (NEGATIVE) 05/12/17 12:47 Ur Phencyclidine Scrn Negative (NEGATIVE) 05/12/17 12:47 Ur Amphetamines Screen Negative (NEGATIVE) 05/12/17 12:47 U Benzodiazepines Scrn Positive (NEGATIVE) H 05/12/17 12:47 U Oth Cocaine Metabols Negative (NEGATIVE) 05/12/17 12:47 U Cannabinoids Screen Negative (NEGATIVE) 05/12/17 12:47 Alcohol, Quantitative 67 mg/dL (0-10) H 05/12/17 12:10 Hepatitis A IgM Ab Negative (NEGATIVE) 05/13/17 09:20 Hep Bs Antigen Negative (NEGATIVE) 05/13/17 09:20 Hep B Core IgM Ab Negative (NEGATIVE) 05/13/17 09:20 Hepatitis C Antibody Negative (NEGATIVE) 05/13/17 09:20 Discharge Exam - Head Exam Head Exam: NORMAL INSPECTION - Eye Exam Eye Exam: EOMI - ENT Exam ENT Exam: Normal Exam - Neck Exam Neck exam: Full Rom - Respiratory Exam Respiratory Exam: Clear to PA & Lateral. absent: Rhonchi - Cardiovascular Exam Cardiovascular Exam: REGULAR RHYTHM, +S1, +S2 - GI/Abdominal Exam GI & Abdominal Exam: Normal Bowel Sounds, Soft. absent: Organomegaly, Tenderness - Extremities Exam Extremities exam: normal inspection - Neurological Exam Neurological exam: Alert, Oriented x3 - Psychiatric Exam Psychiatric exam: Normal Affect Attending/Attestation - Attestation I have personally seen and examined this patient.: Yes I have fully participated in the care of the patient.: Yes I have reviewed all pertinent clinical information, including history, physical exam and plan: Yes Notes (Text): 05/14/17 18:02 36 year old female with past medical history of alcohol abuse and depression who presented with panic attacks and alcohol withdrawal. She was started on ativan prn and librium. She had elevated LFTs likely secondary to chronic ETOH abuse. US abdomen was reviewed as above. She was counselled on alcohol abstinence. Her mother was at bedside and questions were answered. She was pending psychiatry evaluation for history of depression and alcohol abuse. She denied any thoughts of harming herself or others. She was to be seen by psychiatrist early this morning/afternoon but she refused to wait to be seen. She was explained the risks of signing out against medical advice, similar to last week when she left AMA. She eloped from the hospital this afternoon. Ken Matthew MD Hospitalist.
--- NOTE | 2017-05-14 16:36 | CP.PCM.PCO ---
Addendum Addendum: 05/14/17 16:33 this business writer attempted to speak to the patient, but patient was eloping from the unit, this business writer asked patient if she wants to be seen by psychiatrist patient replied "no", was keep walking, patient is substance abuser, did not verbalize any thoughts of harming herself or others, not willing to stay in the hospital any longer, refused to participate in interview. as per medical team report patient denied thoughts of harming herself or others. 05/14/17 16:36
== END 2017-05-14 15:19 | disposition left against medical advice (07) | DRG 894 ==
LOC: ED 11:04 → ERH 14:45 → 3RSO 16:19 → 3RNO 05-13 06:58
PROVIDERS: ADMIT Internal Medicine; ATTEND Internal Medicine
DX: F10.239 Alcohol dependence with withdrawal, unspecified (principal); Y90.3 Blood alcohol level of 60-79 mg/100 ml; F32.9 Major depressive disorder, single episode, unspecified; J45.909 Unspecified asthma, uncomplicated; F41.0 Panic disorder [episodic paroxysmal anxiety]

== ENCOUNTER 2018-01-29 09:33 | Emergency (ER) | payer OTHER ==
[2018-01-29 09:44] VITALS: O2SAT 99; BMI 22.9
[2018-01-29] MEDS ORDERED: Thiamine 100 mg/ml Inj IM STA (10:09)
[2018-01-29] MEDS ORDERED: Multivitamin (MVI) 10 ML, Thiamine 100 MG, Folic Acid 1 MG in Sodium Chloride 0.9% 1,00... IV ONE ×2 (10:09)
[2018-01-29 10:39] LABS: BASO # 0.07 K/mm3 (0.0-2.0); EOS % 0.4 % (1.5-5.0); GRAN # 4.2 (1.4-6.5); HEMOGLOBIN 15.2 g/dL (12.0-16.0); LYMPH # 1.9 (1.2-3.4); LYMPH % 28.2 % (22.0-35.0); MEAN CELL VOLUME 87.7 fl (80.0-105.0); MEAN CORPUSCULAR HEMOGLOBIN 31.1 pg (25.0-35.0); MEAN CORPUSCULAR HGB CONC 35.4 g/dl (31.0-37.0); MEAN PLATELET VOLUME 8.9 fl (7.0-11.0); MONO # 0.7 (0.1-0.6); MONO % 9.4 % (1.0-6.0); RBC 4.89 10^6/uL (3.5-6.1); RED CELL DISTRIBUTION WIDTH 13.8 % (11.5-14.5); WHITE BLOOD COUNT 6.9 10^3/ul (4.5-11.0)
--- NOTE | 2018-01-29 10:45 | ED PDOC ---
Arrival/HPI - General Chief Complaint: Alcohol Ingestion Time Seen by Provider: 01/29/18 10:08 Historian: Patient EM Caveat: Intoxicated - History of Present Illness Narrative History of Present Illness (Text): 01/29/18 10:41 Pt is a 36 year old female brought into the emergency department by EMS for alcohol intoxication and possible withdrawal. Patient states that she has been drinking many bottles of wine daily for the past 2 weeks. She admits to having 2 glasses of wine one hour before arriving to ED. States she has hallucinations and tremors while drinking so she continues to drink to avoid it. Denies chest pain, sob, nausea, vomiting, LOC, illicit drug abuse, SI, HI, or any other complaint. Time/Duration: Prior to Arrival Symptom Onset: Gradual Symptom Course: Unchanged Quality: Unable to Describe Activities at Onset: Rest Context: Home Past Medical History - Provider Review Nursing Documentation Reviewed: Yes - Travel History Have you recently traveled outside [place] w/in the past 3 mons?: No - Past History Past History: Non-Contributing - Infectious Disease Hx of Infectious Diseases: None - Reproductive Menopause: No - Cardiac Hx Cardiac Disorders: No Hx Hypertension: No - Pulmonary Hx Respiratory Disorders: Yes Hx Asthma: Yes Hx Tuberculosis: No - Neurological Hx Neurological Disorder: No HX Cerebrovascular Accident: No Hx Seizures: No - HEENT Hx HEENT Disorder: No - Renal Hx Renal Disorder: No - Endocrine/Metabolic Hx Endocrine Disorders: No - Hematological/Oncological Hx Blood Disorders: No Hx Cancer: No - Integumentary Hx Dermatological Disorder: No - Musculoskeletal/Rheumatological Hx Musculoskeletal Disorders: Yes Hx Falls: Yes (MULTIPLE FALLS FROM DRINKING ALCOHOL) - Gastrointestinal Hx Gastrointestinal Disorders: No - Genitourinary/Gynecological Hx Genitourinary Disorders: No Hx Sexually Transmitted Diseases: No - Psychiatric Hx Psychophysiologic Disorder: Yes Hx Depression: Yes Hx Substance Use: No Other/Comment: suicide attempt, daily alcohol consumption,DRINKS VODKA BINGE DRINKS - Anesthesia Hx Anesthesia: No Hx Anesthesia Reactions: No Hx Malignant Hyperthermia: No Family/Social History - Physician Review Nursing Documentation Reviewed: Yes Family/Social History: Unknown Family HX Smoking Status: Current Some Days Smoker Hx Alcohol Use: No Hx Substance Use: No Allergies/Home Meds Allergies/Adverse Reactions: Allergies Tetracyclines Adverse Reaction (Verified 05/12/17 11:20) RASH Home Medications: Home Meds Medication Instructions Recorded Confirmed DULoxetine [Cymbalta] 120 mg PO DAILY 04/28/17 01/29/18 Fluticasone/Salmeterol 500/50 1 puff IH Q12 05/05/17 01/29/18 [Advair Diskus] Fexofenadine/Pseudoephedrine 1 tab PO DAILY 05/12/17 01/29/18 [Velma-D 24 Hour Tablet] Review of Systems - Review of Systems Systems not reviewed;Unavailable: Intoxicated Constitutional: Normal Eyes: Normal. absent: Vision Changes ENT: Normal. absent: Hearing Changes Respiratory: Normal. absent: SOB Cardiovascular: Normal. absent: Chest Pain Gastrointestinal: Normal. absent: Abdominal Pain Genitourinary Female: Normal. absent: Dysuria Musculoskeletal: Normal Skin: Normal Neurological: Normal. absent: Headache, Dizziness, Gait Changes, Speech Changes Endocrine: Normal Hemo/Lymphatic: Normal Psychiatric: Normal. absent: Suicidal Ideation Physical Exam - Physical Exam Physical Exam Limitations: Intoxication Vital Signs Reviewed: Yes Vital Signs Temp Pulse Resp BP Pulse Ox 01/29/18 13:20 98.1 F 96 H 18 99 01/29/18 11:33 98.0 F 95 H 19 137/86 99 01/29/18 09:36 98.6 F 102 H 18 151/98 H 99 01/29/18 09:33 98.3 F 94 H 18 133/88 97 Temperature: Afebrile Blood Pressure: Normal Pulse: Regular Respiratory Rate: Normal Appearance: Positive for: Well-Appearing, Non-Toxic, Comfortable Pain Distress: None Mental Status: Positive for: Alert and Oriented X 3 - Systems Exam Head: Present: Atraumatic, Normocephalic Pupils: Present: PERRL Extroacular Muscles: Present: EOMI Conjunctiva: Present: Normal. No: Injected Mouth: Present: Moist Mucous Membranes Neck: Present: Normal Range of Motion Respiratory/Chest: Present: Clear to Auscultation, Good Air Exchange. No: Respiratory Distress, Accessory Muscle Use Cardiovascular: Present: Regular Rate and Rhythm, Normal S1, S2. No: Murmurs Abdomen: No: Tenderness, Distention, Peritoneal Signs Back: Present: Normal Inspection Upper Extremity: Present: Normal Inspection. No: Cyanosis, Edema Lower Extremity: Present: Normal Inspection. No: Edema Neurological: Present: GCS=15, CN II-XII Intact, Speech Normal, Motor Func Grossly Intact, Gait Normal Skin: Present: Warm, Dry, Normal Color. No: Rashes Psychiatric: Present: Alert, Oriented x 3, Normal Insight, Normal Concentration , Intoxicated Medical Decision Making ED Course and Treatment: 01/29/18 10:45 Impression Pt is a 36 year old female brought into the emergency department by EMS for alcohol intoxication and possible withdrawal. A&Ox3 with no signs of w/d CIWA-AR score: Plan EtOH w/u fluids ekg cxr assess and dispo Progress Note 01/29/18 12:15 EtOH 250 ALT elevated Pt remains A&Ox3 and requesting to go home; denies hallucinations, n/v/d CIWA score remains 0 Will d/c after 500cc IV fluids administered Needs to f/u with rehab/technology infusion specialist in [place] - Lab Interpretations Lab Results: 01/29/18 10:07 01/29/18 10:07 Lab Results 01/29/18 13:00: Urine Color Yellow, Urine Appearance Sl cloudy, Urine pH 7.0, Ur Specific [place] 1.010, Urine Protein Negative, Urine Glucose (UA) Negative, Urine Ketones Negative, Urine Blood Trace-intact H, Urine Nitrate Negative, Urine Bilirubin Negative, Urine Urobilinogen 0.2, Ur Leukocyte Esterase Small H , Urine RBC 0 - 2, Urine WBC 5 - 10, Ur Epithelial Cells 6 - 8, Urine Bacteria Few 01/29/18 10:07: Urine Opiates Screen Negative, Urine Methadone Screen Negative, Ur Barbiturates Screen Negative, Ur Phencyclidine Scrn Negative, Ur Amphetamines Screen Negative, U Benzodiazepines Scrn Negative, U Oth Cocaine Metabols Negative, U Cannabinoids Screen Negative 01/29/18 10:07: Alcohol, Quantitative 250 H 01/29/18 10:07: Sodium 143, Potassium 4.5, Chloride 99, Carbon Dioxide 28, Anion Gap 21 H, BUN 8, Creatinine 0.8, Est GFR ( Amer) > 60, Est GFR (Non -Af Amer) > 60, Random Glucose 123 H, Calcium 9.1, Phosphorus 3.9, Magnesium 2.2 , Total Bilirubin 0.6, AST 74 H D, ALT 102 H, Alkaline Phosphatase 91, Total Protein 8.4 H, Albumin 4.8, Globulin 3.6, Albumin/Globulin Ratio 1.3, Amylase 59 , Lipase 87 01/29/18 10:07: WBC 6.9 D, RBC 4.89, Hgb 15.2 D, Hct 42.9, MCV 87.7, MCH 31.1 , MCHC 35.4, RDW 13.8, Plt Count 276, MPV 8.9, Gran % 61.0, Lymph % (Auto) 28.2 , [place] % (Auto) 9.4 H, Eos % (Auto) 0.4 L, Baso % (Auto) 1.0, Gran # 4.20, Lymph # (Auto) 1.9, [place] # (Auto) 0.7 H, Eos # (Auto) 0.0, Baso # (Auto) 0.07 - RAD Interpretation Narrative RAD Interpretations (Text): 01/29/18 13:12 01/29/2018 HISTORY: chronic EtOH abuse COMPARISON: 05/12/2017. FINDINGS: LUNGS: The lungs are well inflated and clear. PLEURA: No significant pleural effusion identified, no pneumothorax apparent. CARDIOVASCULAR: Normal. OSSEOUS STRUCTURES: No significant abnormalities. VISUALIZED UPPER ABDOMEN: Normal. OTHER FINDINGS: None. IMPRESSION: No active pulmonary disease. Radiology Orders: 01/29/18 10:47 CXR [CHEST PORTABLE] [RAD] Stat - Medication Orders Current Medication Orders: Discontinued Medications Multivitamins/Vitamin C 10 ml/Thiamine HCl 100 mg/ Folic Acid 1 mg/ Sodium Chloride 1,011.2 mls @ 100 mls/hr IV .Q10H7M ONE Stop: 01/29/18 20:15 Last Admin: 01/29/18 10:43 Dose: 100 mls/hr eMAR Start Stop Document 01/29/18 10:43 [email or web address] (Rec: 01/29/18 10:44 [email or web address] [id number]) Intravenous Solution Start Date 01/29/18 Start Time 10:44 End Date 01/29/18 Multivitamins/Vitamin C 10 ml/Thiamine HCl 100 mg/ Folic Acid 1 mg/ Sodium Chloride 1,011.2 mls @ 500 mls/hr IV .Q2H2M ONE Stop: 01/29/18 12:10 Last Admin: 01/29/18 12:00 Dose: 500 mls/hr eMAR Start Stop Document 01/29/18 12:00 [email or web address] (Rec: 01/29/18 13:04 [email or web address] [id number]) Intravenous Solution Start Date 01/29/18 Start Time 12:00 Lorazepam (Ativan) 1 mg IVP ONCE ONE Stop: 01/29/18 10:10 Last Admin: 01/29/18 10:42 Dose: 1 mg IVP Administration Document 01/29/18 10:42 [email or web address] (Rec: 01/29/18 10:42 [email or web address] [id number]) Charges for Administration # of IVP Administrations 1 Nicotine (Nicoderm Cq) 1 patch TD STAT STA Stop: 01/29/18 10:09 Last Admin: 01/29/18 10:41 Dose: 1 patch MAR Transdermal Patch Site Document 01/29/18 10:41 [email or web address] (Rec: 01/29/18 10:42 [email or web address] [id number]) Transdermal Patch Site Transdermal Patch Site Left Shoulder Thiamine HCl (Vitamin B1 Inj) 100 mg IM STAT STA Stop: 01/29/18 10:10 Last Admin: 01/29/18 10:43 Dose: 100 mg IM Administration Charges Document 01/29/18 10:43 [email or web address] (Rec: 01/29/18 10:43 [email or web address] [id number]) Injection Site MAR Injection Site Right Deltoid Charges for Administration # of IM Administrations 1 Disposition/Present on Arrival - Present on Arrival Any Indicators Present on Arrival: Yes History of DVT/PE: No History of Uncontrolled Diabetes: No Urinary Catheter: No History of Decub. Ulcer: No History Surgical Site Infection Following: None - Disposition Have Diagnosis and Disposition been Completed?: Yes Diagnosis: Alcohol abuse Disposition: HOME/ ROUTINE Disposition Time: 12:30 Patient Plan: Discharge Condition: GOOD Discharge Instructions (ExitCare): Alcohol Abuse and Alcoholism (DC) Additional Instructions: ART BENAVIDEZ, thank you for letting us take care of you today. Your provider was Manuel Smith DO and SOPHIA Morales and you were treated for ALCOHOL ABUSE. The emergency medical care you received today was directed at your acute symptoms. If you were prescribed any medication, please fill it and take as directed. It may take several days for your symptoms to resolve. Return to the Emergency Department if your symptoms worsen, do not improve, or if you have any other problems. PLEASE CONSIDER GOING BACK TO THE REHAB CENTER TO DETOX FROM ALCOHOL Please contact your doctor or call one of the physicians/clinics you have been referred to that are listed on the Patient Visit Information form that is included in your discharge packet. Bring any paperwork you were given at discharge with you along with any medications you are taking to your follow up visit. Our treatment cannot replace ongoing medical care by a primary care provider outside of the emergency department. Thank you for allowing the [facility] team to be part of your care today. If you had an X-Ray or CT scan: A Radiologist will review the ED reading if any change in treatment is needed we will contact you. If you had a blood, urine, or wound culture: It will take several days for the results, if any change in treatment is needed we will contact you. Referrals: PCP,NO [Primary Care Provider] - Follow up with primary Forms: [employer] (Congolese), WORK NOTE
[2018-01-29 10:49] LABS: ALB/GLOB RATIO 1.3 (1.1-1.8); ALBUMIN 4.8 g/dL (3.0-4.8); ALT/SGPT 102 U/L (7-56); AMYLASE 59 U/L (35-125); AST/SGOT 74 U/L (14-36); BLOOD UREA NITROGEN 8 mg/dL (7-21); CALCIUM 9.1 mg/dL (8.4-10.5); GFR AFRICAN-AMERICAN > 60; GFR NON-AFRICAN AMERICAN > 60; LIPASE 87 U/L (23-300)
[2018-01-29 11:08] LABS: BARBITURATES, UR NEGATIVE (NEGATIVE); BENZODIAZEPINES, UR NEGATIVE (NEGATIVE); OPIATES, UR NEGATIVE (NEGATIVE); PHENCYCLIDINE, UR NEGATIVE (NEGATIVE)
--- NOTE | 2018-01-29 11:23 | RAD ---
Date of service: 01/29/2018 HISTORY: chronic EtOH abuse COMPARISON: 05/12/2017. FINDINGS: LUNGS: The lungs are well inflated and clear. PLEURA: No significant pleural effusion identified, no pneumothorax apparent. CARDIOVASCULAR: Normal. OSSEOUS STRUCTURES: No significant abnormalities. VISUALIZED UPPER ABDOMEN: Normal. OTHER FINDINGS: None. IMPRESSION: No active pulmonary disease.
[2018-01-29 12:27] VITALS: BP 137/86
[2018-01-29 13:26] LABS: URINE BILIRUBIN NEGATIVE (NEGATIVE); URINE BLOOD TRACE-INTACT (NEGATIVE); URINE GLUCOSE (UA) NEGATIVE (NEGATIVE); URINE LEUKOCYTE ESTERASE SMALL Leu/uL (NEGATIVE); URINE PROTEIN NEGATIVE mg/dL (<30 mg/dL); URINE UROBILINOGEN 0.2 E.U./dL (<1 E.U./dL)
[2018-01-29 13:28] LABS: URINE APPEARANCE SL CLOUDY (CLEAR); URINE COLOR YELLOW (YELLOW)
[2018-01-29 13:29] LABS: URINE BACTERIA FEW (NEG); URINE RBC 0 - 2 /hpf (0-2)
[2018-01-29 13:41] VITALS: PULSE 96; RESP 18; TEMP 98.1
--- NOTE | 2018-01-29 16:38 | CARD ---
APPROVED REPORT Date of service: 01/29/2018 EKG Measurement Heart [id number] ID [id number] <Conclusion> Normal sinus rhythm Normal ECG
== END 2018-01-29 13:20 | disposition home or self-care (01) ==
LOC: ED 09:33
DX: F10.10 Alcohol abuse, uncomplicated (principal)
CPT/HCPCS: 71045; 80053; 80320; 80324; 80345; 80346; 80349; 80353; 80358; 80361; 81001; 82150; 83690; 83735; 83992; 84100; 85025; 87086; 93005; 96372; 96374; 99283; J2060; J3411; J7030

== ENCOUNTER 2018-03-28 10:24 | Emergency (ER) | payer OTHER ==
[2018-03-28 11:24] VITALS: BMI 25.7
--- NOTE | 2018-03-28 11:31 | ED PDOC ---
Arrival/HPI - General Historian: Patient EM Caveat: Intoxicated - History of Present Illness Time/Duration: 24 hours Symptom Onset: Gradual Symptom Course: Unchanged <Thom Casanova - Last Filed: 03/28/18 18:47> <Robert Chaney - Last Filed: 03/28/18 19:07> - General Chief Complaint: Alcohol Ingestion Time Seen by Provider: 03/28/18 11:23 - History of Present Illness Narrative History of Present Illness (Text): 03/28/18 11:44 Patient is a 37 year old female presenting to the ED for alcohol intoxication. Patient is agitated and refusing to answer any questions. HPI and ROS limited to alcohol intoxication. (Thom Casanova) Past Medical History - Provider Review Nursing Documentation Reviewed: Yes - Past History Past History: Unable to Obtain - Infectious Disease Hx of Infectious Diseases: None - Cardiac Hx Cardiac Disorders: No Hx Hypertension: No - Pulmonary Hx Respiratory Disorders: Yes Hx Asthma: Yes Hx Tuberculosis: No - Neurological Hx Neurological Disorder: No HX Cerebrovascular Accident: No Hx Seizures: No - HEENT Hx HEENT Disorder: No - Renal Hx Renal Disorder: No - Endocrine/Metabolic Hx Endocrine Disorders: No - Hematological/Oncological Hx Blood Disorders: No Hx Cancer: No - Integumentary Hx Dermatological Disorder: No - Musculoskeletal/Rheumatological Hx Musculoskeletal Disorders: Yes Hx Falls: Yes (MULTIPLE FALLS FROM DRINKING ALCOHOL) - Gastrointestinal Hx Gastrointestinal Disorders: No - Genitourinary/Gynecological Hx Genitourinary Disorders: No Hx Sexually Transmitted Diseases: No - Psychiatric Hx Psychophysiologic Disorder: Yes Hx Depression: Yes Hx Substance Use: No Other/Comment: suicide attempt, daily alcohol consumption,DRINKS VODKA BINGE DRINKS - Anesthesia Hx Anesthesia: No Hx Anesthesia Reactions: No Hx Malignant Hyperthermia: No <Thom Casanova - Last Filed: 03/28/18 18:47> Family/Social History - Physician Review Nursing Documentation Reviewed: Yes Family/Social History: No Known Family HX Smoking Status: Current Some Days Smoker Hx Alcohol Use: Yes Hx Substance Use: No <Thom Casanova - Last Filed: 03/28/18 18:47> Allergies/Home Meds <Thom Casanova - Last Filed: 03/28/18 18:47> <Robert Chaney - Last Filed: 03/28/18 19:07> Allergies/Adverse Reactions: Allergies Tetracyclines Adverse Reaction (Verified 03/28/18 11:14) RASH Home Medications: Home Meds Medication Instructions Recorded Confirmed DULoxetine [Cymbalta] 120 mg PO DAILY 04/28/17 01/29/18 Fluticasone/Salmeterol 500/50 1 puff IH Q12 05/05/17 01/29/18 [Advair Diskus] Fexofenadine/Pseudoephedrine 1 tab PO DAILY 05/12/17 01/29/18 [Velma-D 24 Hour Tablet] Review of Systems - Physician Review All systems were reviewed & negative as marked: Yes - Review of Systems Systems not reviewed;Unavailable: Intoxicated <Thom Casanova - Last Filed: 03/28/18 18:47> Physical Exam - Physical Exam Physical Exam Limitations: Intoxication, Uncooperative Vital Signs Reviewed: No (patient refused) Temperature: Afebrile <Thom Casanova - Last Filed: 03/28/18 18:47> Vital Signs Temp Pulse Resp BP Pulse Ox 03/28/18 12:35 84 18 133/80 97 03/28/18 11:34 98.3 F Medical Decision Making Reassessment Condition: Re-examined, Improved <Thom Casanova - Last Filed: 03/28/18 18:47> <Robert Chaney - Last Filed: 03/28/18 19:07> ED Course and Treatment: 03/28/18 11:29 Impression: Patient is a 37 year old female presenting to the ED for alcohol intoxication. Differential Diagnosis included but are not limited to: - Alcohol intoxication Plan: -- Ativan -- Haldol -- One-to-one -- CBC -- CMP -- Blood alcohol level -- Reassess and Disposition Progress Notes: 03/28/18 11:00 - Patient is agitated and refusing to cooperate, haldol and ativan given. Patient was also put in restraints and placed on-to-one. 03/28/18 14:19 - Blood alcohol level: 293 03/28/18 15:31 - Patient is sleeping comfortably. 03/28/18 18:26 - Patient is sleeping. Awaiting sobriety. (Thom Casanova) - Lab Interpretations Lab Results: Lab Results 03/28/18 13:20: Alcohol, Quantitative 293 H - Medication Orders Current Medication Orders: Nicotine (Nicoderm Cq) 1 patch TD DAILY MANSI Discontinued Medications Haloperidol Lactate (Haldol) 5 mg IM STAT STA PRN Reason: Protocol Stop: 03/28/18 11:25 Last Admin: 03/28/18 11:48 Dose: 5 mg IM Administration Charges Document 03/28/18 11:48 (Rec: 03/28/18 11:48 MR [id number]) Injection Site MAR Injection Site Left Deltoid Charges for Administration # of IM Administrations 1 Lorazepam (Ativan) 2 mg IM ONCE ONE PRN Reason: Protocol Stop: 03/28/18 11:26 Last Admin: 03/28/18 11:48 Dose: 2 mg IM Administration Charges Document 03/28/18 11:48 MR (Rec: 03/28/18 11:48 MR [id number]) Injection Site MAR Injection Site Left Deltoid Charges for Administration # of IM Administrations 1 Disposition/Present on Arrival - Present on Arrival Any Indicators Present on Arrival: No History of DVT/PE: No History of Uncontrolled Diabetes: No Urinary Catheter: No History of Decub. Ulcer: No History Surgical Site Infection Following: None - Disposition Have Diagnosis and Disposition been Completed?: Yes Disposition Time: 18:48 <Thom Casanova - Last Filed: 03/28/18 18:47> - Disposition Have Diagnosis and Disposition been Completed?: No <Robert Chaney - Last Filed: 03/28/18 19:07> - Disposition Diagnosis: Alcohol intoxication Patient Problems: Current Active Problems Problem Status Onset Alcohol intoxication Acute Condition: STABLE Additional Instructions: ART BENAVIDEZ, thank you for letting us take care of you today. Your provider was Robert Chaney DO and you were treated for alcohol intoxication. The emergency medical care you received today was directed at your acute symptoms. If you were prescribed any medication, please fill it and take as directed. It may take several days for your symptoms to resolve. Return to the Emergency Department if your symptoms worsen, do not improve, or if you have any other problems. Please contact your doctor or call one of the physicians/clinics you have been referred to that are listed on the Patient Visit Information form that is included in your discharge packet. Bring any paperwork you were given at discharge with you along with any medications you are taking to your follow up visit. Our treatment cannot replace ongoing medical care by a primary care provider outside of the emergency department. Thank you for allowing the [email or web address] team to be part of your care today. If you had an X-Ray or CT scan: A Radiologist will review the ED reading if any change in treatment is needed we will contact you. If you had a blood, urine, or wound culture: It will take several days for the results, if any change in treatment is needed we will contact you. If you had an STI test: It will take 48 hours for the results. Please call after 1 week if you have not heard back. Referrals: Elva Villa MD [Medical Doctor] - Follow up with primary Forms: [employer] (Burmese)
[2018-03-28 11:39] VITALS: TEMP 98.3
[2018-03-28 19:39] VITALS: BP 123/86; PULSE 88; RESP 17; O2SAT 99
== END 2018-03-28 19:45 | disposition home or self-care (01) ==
LOC: ED 10:24
DX: F10.129 Alcohol abuse with intoxication, unspecified (principal)
CPT/HCPCS: 80320; 96372; 99284; J1630; J2060

== ENCOUNTER 2018-04-01 06:37 | Emergency (ER) | payer OTHER ==
[2018-04-01 06:39] VITALS: BMI 25.7
== END 2018-04-01 06:58 | disposition left against medical advice (07) ==
LOC: ED 06:37
DX: Z02.89 Encounter for other administrative examinations (principal); Z00.00 Encounter for general adult medical examination without abnormal findings

== ENCOUNTER 2018-04-09 11:13 | Inpatient (IN) | payer OTHER ==
[2018-04-09 11:28] VITALS: BMI 22.8
[2018-04-09] MEDS ORDERED: Multivitamin (MVI) 10 ML, Thiamine 100 MG, Folic Acid 1 MG in Sodium Chloride 0.9% 1,00... IV ONE ×2 (11:37→21:45)
--- NOTE | 2018-04-09 11:47 | ED PDOC ---
Arrival/HPI - General Chief Complaint: Alcohol Ingestion Time Seen by Provider: 04/09/18 11:20 Historian: Patient, EMS - History of Present Illness Narrative History of Present Illness (Text): 04/09/18 11:40 Patient is a 37 yo female with past medical history of alcohol abuse, alcohol withdrawal, presents to the Emergency Department voluntarily after she reportedly "called the ambulance because I drank too much and I want to detox". Patient denies suicidal or homicidal ideation. Denies headaches. Denies chest pain or shortness of breath. Denies abdominal pain. Denies any nausea or vomiting. Denies any bloody urine or stool. Denies lightheadedness or dizziness. Denies tremors or palpitations. Past Medical History - Past History Past History: Unable to Obtain - Infectious Disease Hx of Infectious Diseases: None - Reproductive Menopause: No - Cardiac Hx Cardiac Disorders: No Hx Hypertension: No - Pulmonary Hx Respiratory Disorders: Yes Hx Asthma: Yes Hx Tuberculosis: No - Neurological Hx Neurological Disorder: No HX Cerebrovascular Accident: No Hx Seizures: No - HEENT Hx HEENT Disorder: No - Renal Hx Renal Disorder: No - Endocrine/Metabolic Hx Endocrine Disorders: No - Hematological/Oncological Hx Blood Disorders: No Hx Cancer: No - Integumentary Hx Dermatological Disorder: No - Musculoskeletal/Rheumatological Hx Musculoskeletal Disorders: Yes Hx Falls: Yes (MULTIPLE FALLS FROM DRINKING ALCOHOL) - Gastrointestinal Hx Gastrointestinal Disorders: No - Genitourinary/Gynecological Hx Genitourinary Disorders: No Hx Sexually Transmitted Diseases: No - Psychiatric Hx Psychophysiologic Disorder: Yes Hx Depression: Yes Hx Substance Use: No Other/Comment: suicide attempt, daily alcohol consumption,DRINKS VODKA BINGE DRINKS - Anesthesia Hx Anesthesia: No Hx Anesthesia Reactions: No Hx Malignant Hyperthermia: No Family/Social History Family/Social History: Unknown Family HX Smoking Status: Current Some Days Smoker Hx Alcohol Use: Yes Hx Substance Use: No Substance used: cocaine & heroin Allergies/Home Meds Allergies/Adverse Reactions: Allergies Tetracyclines Adverse Reaction (Verified 03/28/18 11:14) RASH Home Medications: Home Meds Medication Instructions Recorded Confirmed DULoxetine [Cymbalta] 120 mg PO DAILY 04/28/17 01/29/18 Fluticasone/Salmeterol 500/50 1 puff IH Q12 05/05/17 01/29/18 [Advair Diskus] Fexofenadine/Pseudoephedrine 1 tab PO DAILY 05/12/17 01/29/18 [Velma-D 24 Hour Tablet] Review of Systems - Review of Systems Systems not reviewed;Unavailable: Intoxicated Constitutional: absent: Fevers Eyes: absent: Vision Changes Respiratory: absent: SOB Cardiovascular: absent: Chest Pain Gastrointestinal: absent: Abdominal Pain, Nausea, Vomiting, Hematochezia, Hematemesis Musculoskeletal: Myalgias. absent: Back Pain Skin: absent: Cellulitis Neurological: absent: Headache, Focal Weakness Psychiatric: absent: Anxiety, Depression, Suicidal Ideation Physical Exam Vital Signs Reviewed: Yes Vital Signs Temp Pulse Resp BP Pulse Ox 04/09/18 20:20 104 H 17 127/96 H 98 04/09/18 15:30 115 H 18 113/70 100 04/09/18 11:33 97.9 F 110 H 19 138/96 H 96 Temperature: Afebrile Pulse: Tachycardic Appearance: Positive for: Non-Toxic Pain Distress: None Mental Status: Positive for: Alert and Oriented X 3 - Systems Exam Head: Present: Atraumatic Pupils: Present: PERRL Mouth: Present: Moist Mucous Membranes Pharnyx: No: ERYTHEMA Nose (Internal): Present: Normal Inspection Neck: Present: Normal Range of Motion. No: Meningeal Signs Respiratory/Chest: Present: Clear to Auscultation. No: Respiratory Distress Cardiovascular: Present: Tachycardic Abdomen: No: Tenderness Rectal: No: Gross Blood Upper Extremity: No: Cyanosis Lower Extremity: No: Edema Neurological: Present: Other (slurred speech, no facial droop, no focal weakness , easily arousable) Skin: Present: Warm, Other (bruising, appears old to upper and lower extremities , no bony deformities or open lesions noted) Psychiatric: Present: Alert, Oriented x 3. No: Depressed Mood, Suicidal Ideation Medical Decision Making ED Course and Treatment: 04/09/18 12:23 Patient on initial evaluation is noted to be slurring her speech, admits to "heavy" alcohol use. Denies suicidal ideation or tremors or shaking. Multiple bruises noted to arms and legs noted that appear of varying time frames, no acute bony pain reported or noted. No deformities noted. She states she lives by herself and denies any history of physical abuse, she states she has been "just falling". She denies headaches. At 12:15 patient became agitated, attempting to stand and ambulate with unsteady gait and intoxication. Despite multiple attempts by myself and staff to verbally address patient and discuss treatment plan, risks of ambulating intoxicated, she is noncompliant with treatment plan. As she is clinically intoxicated will order restraints for patient safety, administer Ativan. 04/09/18 16:31 Patient on exam is in no respiratory distress. Still slurred speech. When awake she attempts to ambulate and get up and is clinically intoxicated still however with unsteadiness. Restraints renewed as patient remains potential harm to self and will not comply with verbal orders in intoxicated state, is fall risk. ETOH level elevated. Oral potassium ordered. 04/09/18 19:57 Patient calm, cooperative. Restraints removed. Patient complains of shakiness. Librium ordered. Denies chest pain or shortness of breath. Currently no hallucinations or suicidal ideation. Will admit for monitoring and treatment of alcohol withdrawal symptoms. 04/09/18 20:33 Case d/w hospitalist team, accepted by Dr. Villa's team. Patient with no chest pain or shortness of breath, no hypoxia, no cough. - Lab Interpretations Lab Results: 04/09/18 11:45 04/09/18 11:45 Lab Results 04/09/18 15:08: POC Glucose (mg/dL) 93 04/09/18 12:20: Urine Color Yellow, Urine Appearance Clear, Urine pH 7.0, Ur Specific [place] 1.010, Urine Protein Negative, Urine Glucose (UA) Negative, Urine Ketones Negative, Urine Blood Small H, Urine Nitrate Negative, Urine Bilirubin Negative, Urine Urobilinogen 0.2, Ur Leukocyte Esterase Trace H, Urine RBC 5 - 10, Urine WBC 2 - 5, Ur Epithelial Cells 4 - 5, Urine Bacteria Mod , Urine HCG, Qual Negative 04/09/18 12:20: Urine Opiates Screen Negative, Urine Methadone Screen Negative, Ur Barbiturates Screen Negative, Ur Phencyclidine Scrn Negative, Ur Amphetamines Screen Negative, U Benzodiazepines Scrn Negative, U Oth Cocaine Metabols Negative, U Cannabinoids Screen Negative 04/09/18 11:45: Alcohol, Quantitative 460 H* 04/09/18 11:45: Salicylates < 1 L, Acetaminophen < 10.0 L 04/09/18 11:45: Sodium 143, Potassium 3.3 L, Chloride 100, Carbon Dioxide 30, Anion Gap 15, BUN 12, Creatinine 0.5 L, Est GFR ( Amer) > 60, Est GFR ( Non-Af Amer) > 60, Random Glucose 147 H, Calcium 8.8, Magnesium 2.1, Total Bilirubin 0.4, AST 181 H D, ALT 136 H, Alkaline Phosphatase 99, Lactate Dehydrogenase 701 H, Total Creatine Kinase 186, Troponin I < 0.01, Total Protein 7.7, Albumin 4.3, Globulin 3.4, Albumin/Globulin Ratio 1.3 04/09/18 11:45: PT 10.6, INR 0.92, APTT 30.0 04/09/18 11:45: WBC 6.4, RBC 4.38, Hgb 13.8, Hct 39.9, MCV 91.1 D, MCH 31.5, MCHC 34.6, RDW 13.8, Plt Count 115 L, MPV 9.5, Gran % 56.5, Lymph % (Auto) 33.1 , [place] % (Auto) 8.8 H, Eos % (Auto) 1.1 L, Baso % (Auto) 0.5, Gran # 3.60, Lymph # (Auto) 2.1, [place] # (Auto) 0.6, Eos # (Auto) 0.1, Baso # (Auto) 0.03 - EKG Interpretation EKG Interpretation (Text): 04/09/18 20:32 EKG at 11:50 sinus tachycardia rate of 111 Interpreted by ED Physician: Yes Type: 12 lead EKG - Medication Orders Current Medication Orders: Discontinued Medications Chlordiazepoxide (Librium) 50 mg PO STAT STA PRN Reason: Protocol Stop: 04/09/18 19:57 Last Admin: 04/09/18 20:11 Dose: 50 mg Multivitamins/Vitamin C 10 ml/Thiamine HCl 100 mg/ Folic Acid 1 mg/ Sodium Chloride 1,011.2 mls @ 1,000 mls/hr IV .Q1H1M ONE Stop: 04/09/18 12:37 Last Admin: 04/09/18 12:39 Dose: 1,000 mls/hr eMAR Start Stop Document 04/09/18 12:39 EQ (Rec: 04/09/18 12:39 EQ [id number]) Intravenous Solution Start Date 04/09/18 Start Time 12:39 Lorazepam (Ativan) 1 mg IVP ONCE ONE Stop: 04/09/18 12:32 Last Admin: 04/09/18 12:39 Dose: 1 mg IVP Administration Document 04/09/18 12:39 EQ (Rec: 04/09/18 12:39 EQ [id number]) Charges for Administration # of IVP Administrations 1 Nicotine (Nicoderm Cq) 1 patch TD ONCE ONE Stop: 04/09/18 16:31 Last Admin: 04/09/18 16:49 Dose: 1 patch MAR Transdermal Patch Site Document 04/09/18 16:49 EQ (Rec: 04/09/18 16:49 EQ [id number]) Transdermal Patch Site Transdermal Patch Site Left Shoulder Potassium Chloride (K-Dur 20 Meq Er Tab) 40 meq PO STAT STA Stop: 04/09/18 12:50 Last Admin: 04/09/18 13:07 Dose: 40 meq Disposition/Present on Arrival - Present on Arrival Any Indicators Present on Arrival: No History of DVT/PE: No History of Uncontrolled Diabetes: No Urinary Catheter: No History of Decub. Ulcer: No History Surgical Site Infection Following: None - Disposition Have Diagnosis and Disposition been Completed?: Yes Diagnosis: Alcohol withdrawal, Alcohol intoxication Disposition: HOSPITALIZED Disposition Time: 19:58 Patient Plan: Admission, Telemetry Patient Problems: Current Active Problems Problem Status Onset Alcohol intoxication Acute Alcohol withdrawal Acute Condition: SERIOUS Forms: [employer] (Swedish)
[2018-04-09 11:55] LABS: BASO # 0.03 K/mm3 (0.0-2.0); BASO % 0.5 % (0.0-3.0); EOS # 0.1 (0.0-0.7); EOS % 1.1 % (1.5-5.0); GRAN # 3.6 (1.4-6.5); GRAN % 56.5 % (50.0-68.0); HEMOGLOBIN 13.8 g/dL (12.0-16.0); LYMPH # 2.1 (1.2-3.4); LYMPH % 33.1 % (22.0-35.0); MEAN CELL VOLUME 91.1 fl (80.0-105.0); MEAN CORPUSCULAR HEMOGLOBIN 31.5 pg (25.0-35.0); MEAN CORPUSCULAR HGB CONC 34.6 g/dl (31.0-37.0); MEAN PLATELET VOLUME 9.5 fl (7.0-11.0); MONO # 0.6 (0.1-0.6); MONO % 8.8 % (1.0-6.0); RBC 4.38 10^6/uL (3.5-6.1); RED CELL DISTRIBUTION WIDTH 13.8 % (11.5-14.5); WHITE BLOOD COUNT 6.4 10^3/ul (4.5-11.0)
[2018-04-09 12:05] LABS: INR 0.92; PROTHROMBIN TIME 10.6 SECONDS (9.4-12.5)
[2018-04-09 12:07] LABS: ACETAMINOPHEN < 10.0 ug/ml (10.0-20.0); SALICYLATE < 1 mg/dL (2.0-20.0)
[2018-04-09 12:08] LABS: ALB/GLOB RATIO 1.3 (1.1-1.8); ALBUMIN 4.3 g/dL (3.0-4.8); ALT/SGPT 136 U/L (7-56); AST/SGOT 181 U/L (14-36); BLOOD UREA NITROGEN 12 mg/dL (7-21); CALCIUM 8.8 mg/dL (8.4-10.5); GFR NON-AFRICAN AMERICAN > 60
[2018-04-09 12:19] LABS: TROPONIN I < 0.01 ng/mL
[2018-04-09 12:46] LABS: URINE BILIRUBIN NEGATIVE (NEGATIVE); URINE BLOOD SMALL (NEGATIVE); URINE GLUCOSE (UA) NEGATIVE (NEGATIVE); URINE LEUKOCYTE ESTERASE TRACE Leu/uL (NEGATIVE); URINE PROTEIN NEGATIVE mg/dL (<30 mg/dL); URINE UROBILINOGEN 0.2 E.U./dL (<1 E.U./dL)
[2018-04-09 12:47] LABS: URINE APPEARANCE CLEAR (CLEAR); URINE COLOR YELLOW (YELLOW)
[2018-04-09 12:48] LABS: HCG,QUALITATIVE URINE NEGATIVE (NEGATIVE)
[2018-04-09] MEDS ORDERED: Potassium Chloride 20 mEq ER Tab PO STA (12:49)
[2018-04-09 12:50] LABS: URINE BACTERIA MOD (NEG)
[2018-04-09 13:02] LABS: BARBITURATES, UR NEGATIVE (NEGATIVE); BENZODIAZEPINES, UR NEGATIVE (NEGATIVE); OPIATES, UR NEGATIVE (NEGATIVE); PHENCYCLIDINE, UR NEGATIVE (NEGATIVE)
--- NOTE | 2018-04-09 14:10 | CARD ---
APPROVED REPORT Date of service: 04/09/2018 EKG Measurement Heart [id number] <Conclusion> Sinus tachycardia Otherwise normal ECG
--- NOTE | 2018-04-09 22:15 | CP.PCM.HP ---
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 Per patient, she has drank 750ml of alcohol daily for the last 4 weeks. She states she has been going to AA but has been unable to stop drinking. Patient seen last week in ED for alcohol withdrawal. At this time, she admits to some tremors. She denies CP , SOB, abdominal pain, headaches, fevers, nausea, chills, vomiting, urinary complaints, numbness, tingling, recent travel and recent sickness. 12 point ROS noted here, otherwise unremarkable. In ED, urinary alcohol noted to be 460. Patient given ativan, librium, KCl and bannana bag. PMD: Dr. Hidalgo in [place], has not seen in a long time PMH: as above SH: heavy drinking for several years, smokes 10 ciggs/day for two years, denies drug use Sx: denies FH: HTN All: tetracycline Meds: acyclovir 200mg BID, advair, flonase, singulair Present on Admission - Present on Admission Any Indicators Present on Admission: No Past Patient History - Infectious Disease Hx of Infectious Diseases: None - Past Social History Smoking Status: Current Some Days Smoker - CARDIAC Hx Cardiac Disorders: No Hx Hypertension: No - PULMONARY Hx Respiratory Disorders: Yes Hx Asthma: Yes Hx Tuberculosis: No - NEUROLOGICAL Hx Neurological Disorder: No HX Cerebrovascular Accident: No Hx Seizures: No - HEENT Hx HEENT Problems: No - RENAL Hx Chronic Kidney Disease: No - ENDOCRINE/METABOLIC Hx Endocrine Disorders: No - HEMATOLOGICAL/ONCOLOGICAL Hx Blood Disorders: No Hx Cancer: No - INTEGUMENTARY Hx Dermatological Problems: No - MUSCULOSKELETAL/RHEUMATOLOGICAL Hx Musculoskeletal Disorders: Yes Hx Falls: Yes (MULTIPLE FALLS FROM DRINKING ALCOHOL) - GASTROINTESTINAL Hx Gastrointestinal Disorders: No - GENITOURINARY/GYNECOLOGICAL Hx Genitourinary Disorders: No Hx Sexually Transmitted Disorders: No - PSYCHIATRIC Hx Psychophysiologic Disorder: Yes Hx Depression: Yes Hx Substance Use: No Other/Comment: suicide attempt, daily alcohol consumption,DRINKS VODKA BINGE DRINKS - SURGICAL HISTORY Hx Surgeries: No - ANESTHESIA Hx Anesthesia: No Hx Anesthesia Reactions: No Hx Malignant Hyperthermia: No Meds Allergies/Adverse Reactions: Allergies Allergy/AdvReac Type Severity Reaction Status Date / Time Tetracyclines AdvReac RASH Verified 03/28/18 11:14 Physical Exam - Constitutional Appears: No Acute Distress - Head Exam Head Exam: ATRAUMATIC, NORMAL INSPECTION - Eye Exam Eye Exam: EOMI Pupil Exam: PERRL - ENT Exam ENT Exam: Mucous Membranes Dry - Respiratory Exam Respiratory Exam: Clear to Auscultation Bilateral. absent: Wheezes, Respiratory Distress - Cardiovascular Exam Cardiovascular Exam: Tachycardia, REGULAR RHYTHM, +S1, +S2 - GI/Abdominal Exam GI & Abdominal Exam: Normal Bowel Sounds. absent: Distended, Firm, Guarding - Extremities Exam Extremities exam: Positive for: normal inspection. Negative for: calf tenderness - Neurological Exam Neurological exam: Alert, CN II-XII Intact, Oriented x3 - Skin Skin Exam: Dry, Normal Color, Warm Results - Vital Signs Recent Vital Signs: Last Vital Signs Temp 97.9 F 04/09/18 11:33 Pulse 104 H 04/09/18 20:20 Resp 17 04/09/18 20:20 BP 127/96 H 04/09/18 20:20 Pulse Ox 98 04/09/18 20:20 - Labs Result Diagrams: 04/09/18 11:45 04/09/18 11:45 Assessment & Plan - Assessment and Plan (Free Text) Assessment: This is a 37 year old female with PMH of alcohol abuse, asthma, depression and HSV2 presenting to hospital for management of alcohol intoxication. Plan: Alcohol intoxication -aspiration, seizure precautions -banana bag -folic acid -thiamine -multivitamin -CIWA protocol -regular diet -ativan scheduled and prn Elevated transaminitis -history of alcohol abuse -previous abd US showed fatty liver -may consider getting additional imaging Hx depression -does not currently take meds Hx HSV2 -patient takes daily acyclovir but is unsure of dose, may need to call pharmacy to confirm Hx asthma -advair prn Hx of smoking -nicotine patch PPX with heparin and pepcid Patient seen and case discussed with attending, Dr. Ashanti Otero, PGY-1 <Alexey Burrell - Last Filed: 04/10/18 06:24> Results - Vital Signs Recent Vital Signs: Last Vital Signs Temp 98.3 F 04/10/18 06:00 Pulse 87 04/10/18 06:00 Resp 20 04/10/18 06:00 BP 125/87 04/10/18 06:00 Pulse Ox 98 04/10/18 06:00 - Labs Result Diagrams: 04/09/18 11:45 04/09/18 11:45 Attending/Attestation - Attestation I have personally seen and examined this patient.: Yes I have fully participated in the care of the patient.: Yes I have reviewed all pertinent clinical information: Yes Notes (Text): 04/10/18 06:23 Need to verify meds with pharmacy. Please note Advair is not giving on a PRN basis. Albuterol Neb prn.
[2018-04-09] MEDS ORDERED: Fluticasone-Salmeterol 100-50mcg Diskus IH PRN (22:45)
[2018-04-10] MEDS: Arformoterol 15 mcg/2 ml Inh Sol IH SCH ×2 (07:03→20:00)
[2018-04-10] MEDS: Budesonide 0.25 mg/2 ml Inhal Susp UD IH SCH ×2 (07:03→20:00)
[2018-04-10 08:04] LABS: BASO # 0.02 K/mm3 (0.0-2.0); BASO % 0.5 % (0.0-3.0); EOS # 0.1 (0.0-0.7); EOS % 2.2 % (1.5-5.0); GRAN # 2.21 (1.4-6.5); GRAN % 53.4 % (50.0-68.0); LYMPH # 1.4 (1.2-3.4); LYMPH % 34.5 % (22.0-35.0); MEAN CELL VOLUME 91.1 fl (80.0-105.0); MEAN CORPUSCULAR HEMOGLOBIN 30.7 pg (25.0-35.0); MEAN CORPUSCULAR HGB CONC 33.7 g/dl (31.0-37.0); MEAN PLATELET VOLUME 9.4 fl (7.0-11.0); MONO # 0.4 (0.1-0.6); MONO % 9.4 % (1.0-6.0); RBC 3.71 10^6/uL (3.5-6.1); RED CELL DISTRIBUTION WIDTH 13.8 % (11.5-14.5); WHITE BLOOD COUNT 4.1 10^3/ul (4.5-11.0)
[2018-04-10 08:05] LABS: HEMOGLOBIN 11.4 g/dL (12.0-16.0)
[2018-04-10 08:23] LABS: ALB/GLOB RATIO 1.2 (1.1-1.8); ALBUMIN 3.4 g/dL (3.0-4.8); ALT/SGPT 108 U/L (7-56); AST/SGOT 125 U/L (14-36); BLOOD UREA NITROGEN 10 mg/dL (7-21); CALCIUM 8.4 mg/dL (8.4-10.5); GFR NON-AFRICAN AMERICAN > 60
[2018-04-10] MEDS: Multivitamin With Minerals Tab PO SCH (09:53)
[2018-04-10] MEDS ORDERED: Fluticasone-Salmeterol 100-50mcg Diskus IH SCH (10:00)
[2018-04-10] MEDS ORDERED: Potassium Chloride 40 mEq/30 ml LIQ UD PO ONE ×2 (10:17→13:00)
[2018-04-10] MEDS ORDERED: Magnesium Sulfate 2 gm/50 ml 2 GM/50 ML BAG IVPB ONE (10:17)
--- NOTE | 2018-04-10 13:41 | CP.PCM.PN ---
<Jonathan Heredia - Last Filed: 04/10/18 13:46> Subjective - Date & Time of Evaluation Date of Evaluation: 04/10/18 Time of Evaluation: 07:00 - Subjective Subjective: Jonathan Heredia, PGY1 Medicine Progress Note for Dr. Breaux Patient was seen and examined at bedside this morning. She was stable and in no acute respiratory distress. As per nursing staff, patient's last CIWA score was 10 at 4 am. Currently on 1 mg Ativan q6 prn and scheduled. Patient says that she has been drinking heavily (750 ml liquor every day) for the past few weeks because of social stress involving her ex-. Patient denies thoughts of suicide and has no intention of hurting others. She lives at home and works as a medical data entry clerk. She has had admissions to the hospital before, pertaining to alcohol withdrawal. When she withdraws, she says that she experiences sweats , palpitations, hallucinations (visual and tactile), and tremors. During present time of interview, patient was not experiencing this. She denied chest pain, shortness of breath, abdominal pain, nausea, vomiting, diarrhea. A full 12 point ROS was conducted and unremarkable except as stated above. Objective - Vital Signs/Intake and Output Vital Signs (last 24 hours): Temp Pulse Resp BP Pulse Ox 99.1 F 90 20 150/96 H 98 04/10/18 12:00 04/10/18 12:00 04/10/18 12:00 04/10/18 12:00 04/10/18 06:00 Intake and Output: 04/10/18 04/10/18 06:59 18:59 Intake Total 1380 Balance 1380 - Medications Medications: Current Medications Arformoterol Tartrate (Brovana) 15 mcg IH [id number] [facility] Last Admin: 04/10/18 07:03 Dose: 15 mcg Budesonide (Pulmicort Respules) 0.25 mg IH [id number] [facility] Last Admin: 04/10/18 07:03 Dose: 0.25 mg Famotidine (Pepcid) 40 mg PO HS [facility] Folic Acid (Folic Acid) 1 mg PO DAILY [facility] Last Admin: 04/10/18 09:53 Dose: 1 mg Heparin Sodium (Porcine) (Heparin) 5,000 units SC Q12 [facility] PRN Reason: Protocol Last Admin: 04/10/18 09:53 Dose: 5,000 units Lorazepam (Ativan) 1 mg IVP Q6H PRN; Protocol PRN Reason: Anxiety Lorazepam (Ativan) 1 mg PO Q6 MANSI PRN Reason: Protocol Last Admin: 04/10/18 11:03 Dose: 1 mg Multivitamins/Minerals (Therapeutic-M Tab) 1 tab PO DAILY [facility] Last Admin: 04/10/18 09:53 Dose: 1 tab Thiamine HCl (Vitamin B1 Tab) 100 mg PO DAILY [facility] Last Admin: 04/10/18 09:53 Dose: 100 mg - Labs Labs: 04/10/18 07:30 04/10/18 07:30 PT 10.6 SECONDS (9.4-12.5) 04/09/18 11:45 INR 0.92 04/09/18 11:45 APTT 30.0 Seconds (25.1-36.5) 04/09/18 11:45 - Constitutional Appears: No Acute Distress - Head Exam Head Exam: ATRAUMATIC, NORMAL INSPECTION, NORMOCEPHALIC - Eye Exam Eye Exam: EOMI, Normal appearance, PERRL - ENT Exam ENT Exam: Mucous Membranes Moist, Normal Exam - Neck Exam Neck Exam: Full ROM, Normal Inspection. absent: Lymphadenopathy - Respiratory Exam Respiratory Exam: Clear to Ausculation Bilateral, NORMAL BREATHING PATTERN. absent: Chest Wall Tenderness, Decreased Breath Sounds, Rales, Rhonchi, Wheezes , Respiratory Distress - Cardiovascular Exam Cardiovascular Exam: REGULAR RHYTHM, +S1, +S2. absent: Murmur - GI/Abdominal Exam GI & Abdominal Exam: Soft, Normal Bowel Sounds. absent: Tenderness - Back Exam Back Exam: NORMAL INSPECTION - Neurological Exam Neurological Exam: Alert, Awake, CN II-XII Intact, Normal Gait, Oriented x3 Neuro motor strength exam: Left Upper Extremity: 5, Right Upper Extremity: 5, Left Lower Extremity: 5, Right Lower Extremity: 5 Additional comments: No tremors of outstretched hands were noted. - Psychiatric Exam Psychiatric exam: Flat Affect - Skin Skin Exam: Dry, Intact, Normal Color, Warm Assessment and Plan - Assessment and Plan (Free Text) Assessment: Patient is a 37 y/o F with PMHx of alcohol abuse, asthma, depression, and HSV 2 who presented to the ED for alcohol intoxication. Patient has been drinking heavily for the past few weeks and has been admitted prior for alcohol withdrawal. Patient presented with an EtOH level of 460. She is on CIWA protocol receiving ativan for EtOH withdrawal. She is being monitored on telemetry for Alcohol withdrawal and electrolyte abnormalities. Plan: Alcohol Withdrawal with History of Alcohol Abuse - c/w thiamine, folic acid, multi-vitamin - c/w ativan 1 mg PO q6 scheduled and 1 mg IVP q6 prn. - Last CIWA documented was score of 10 - c/w CIWA protocol - c/w fall, aspiration, seizure precautions - Patient attends AA meetings - Prior admissions for EtOH withdrawal - Regular diet as tolerated Hypokalemia - K was 3.3 in ED with repeat K 3.0 - replete with 40 meq KCl - monitor bmp - EKG: sinus tachy with no ST or T wave changes. Hypomagnesemia - 1.5 on admission - Replete with 2 g Magnesium - monitor; goal is Mg > 2.0 Transaminitis 2/2 EtOH Abuse - Initial LFTs show AST/ALT 181/136 - monitor - prior US abdomen showed fatty liver Depression - Patient claims excessive drinking related to household issues with ex- - Psych consulted, f/u recs. - No suicidal intent or thoughts of hurting others during time of interview Asthma - c/w brovana and pulmicort - Maintain SaO2 > 92% - Currently stable; lung exam is normal DVT ppx: heparin sc GI ppx: pepcid Dispo: Continue to monitor patient on telemetry. Case was discussed and reviewed with Attending Physician, Dr. Breaux. <Rafat Breaux - Last Filed: 04/11/18 18:30> Objective - Vital Signs/Intake and Output Vital Signs (last 24 hours): Temp Pulse Resp BP Pulse Ox 99 F 84 19 134/97 H 97 04/11/18 12:00 04/11/18 14:00 04/11/18 12:00 04/11/18 12:00 04/11/18 05:56 Intake and Output: 04/11/18 04/11/18 06:59 18:59 Intake Total 780 1140 Output Total 5 6 Balance 775 1134 - Labs Labs: 04/11/18 06:30 04/11/18 06:30 PT 10.6 SECONDS (9.4-12.5) 04/09/18 11:45 INR 0.92 04/09/18 11:45 APTT 30.0 Seconds (25.1-36.5) 04/09/18 11:45 Attending/Attestation - Attestation I have personally seen and examined this patient.: Yes I have fully participated in the care of the patient.: Yes I have reviewed all pertinent clinical information, including history, physical exam and plan: Yes Notes (Text): 04/11/18 18:28 Attending note; Patient seen and examined with resident. Patient is alert and awake. Denies any chest pain, shortness of breath. Denies any palpitation. Patient is a 37 year old female with PMHx of alcohol abuse, asthma, depression, and HSV 2 who presented to the ED for alcohol intoxication. Patient has multiple ER visits for alcohol intoxication. Patient states that she follows up with AA meetings but still not able to stop. Monitor closely for withdrawal symptoms. Continue banana bag with multivitamin, thiamine, folic acid. Complete alcohol cessation is strongly advised. Psychiatric evaluation requested for depression. Upon discharge the patient will follow-up with .
[2018-04-11 05:56] VITALS: O2SAT 97
[2018-04-11 07:37] LABS: ALB/GLOB RATIO 1.1 (1.1-1.8); ALBUMIN 3.5 g/dL (3.0-4.8); ALT/SGPT 90 U/L (7-56); AST/SGOT 89 U/L (14-36); BLOOD UREA NITROGEN 8 mg/dL (7-21); CALCIUM 8.9 mg/dL (8.4-10.5); GFR NON-AFRICAN AMERICAN > 60
[2018-04-11 07:52] LABS: BASO # 0.02 K/mm3 (0.0-2.0); BASO % 0.6 % (0.0-3.0); EOS # 0.1 (0.0-0.7); EOS % 3.9 % (1.5-5.0); GRAN # 1.72 (1.4-6.5); HEMOGLOBIN 11.2 g/dL (12.0-16.0); LYMPH # 1.1 (1.2-3.4); MEAN CELL VOLUME 90.3 fl (80.0-105.0); MEAN CORPUSCULAR HEMOGLOBIN 30.3 pg (25.0-35.0); MEAN CORPUSCULAR HGB CONC 33.5 g/dl (31.0-37.0); MEAN PLATELET VOLUME 10.1 fl (7.0-11.0); MONO # 0.4 (0.1-0.6); MONO % 12.5 % (1.0-6.0); RBC 3.7 10^6/uL (3.5-6.1); RED CELL DISTRIBUTION WIDTH 13.5 % (11.5-14.5); WHITE BLOOD COUNT 3.4 10^3/ul (4.5-11.0)
[2018-04-11] MEDS: Arformoterol 15 mcg/2 ml Inh Sol IH SCH (08:06)
[2018-04-11] MEDS: Budesonide 0.25 mg/2 ml Inhal Susp UD IH SCH (08:07)
[2018-04-11] MEDS: Multivitamin With Minerals Tab PO SCH (10:05)
[2018-04-11] MEDS ORDERED: Potassium Chloride 40 mEq/30 ml LIQ UD PO ONE (10:09)
[2018-04-11 12:28] VITALS: BP 134/97; PULSE 84; RESP 19; TEMP 99
[2018-04-11 15:58] LABS: HEPATITIS B SURFACE AG Negative (NEGATIVE)
[2018-04-11 16:03] LABS: HEPATITIS A IGM NEGATIVE (NEGATIVE); HEPATITIS B CORE AB NEGATIVE (NEGATIVE)
[2018-04-11 16:15] LABS: HEPATITIS C ANTIBODY NEGATIVE (NEGATIVE)
--- NOTE | 2018-04-11 16:52 | CP.PCM.DIS ---
<YanJonathan - Last Filed: 04/11/18 16:43> Provider - Provider Date of Admission: 04/09/18 20:31 Attending physician: Rafat Breaux MD Time Spent in preparation of Discharge (in minutes): 40 Hospital Course - Lab Results Lab Results: Most Recent Lab Values WBC 3.4 10^3/ul (4.5-11.0) L 04/11/18 06:30 RBC 3.70 10^6/uL (3.5-6.1) 04/11/18 06:30 Hgb 11.2 g/dL (12.0-16.0) L 04/11/18 06:30 Hct 33.4 % (36.0-48.0) L 04/11/18 06:30 MCV 90.3 fl (80.0-105.0) 04/11/18 06:30 MCH 30.3 pg (25.0-35.0) 04/11/18 06:30 MCHC 33.5 g/dl (31.0-37.0) 04/11/18 06:30 RDW 13.5 % (11.5-14.5) 04/11/18 06:30 Plt Count 87 10^3/uL (120.0-450.0) L 04/11/18 06:30 MPV 10.1 fl (7.0-11.0) 04/11/18 06:30 Gran % 51.0 % (50.0-68.0) 04/11/18 06:30 Lymph % (Auto) 32.0 % (22.0-35.0) 04/11/18 06:30 [place] % (Auto) 12.5 % (1.0-6.0) H 04/11/18 06:30 Eos % (Auto) 3.9 % (1.5-5.0) 04/11/18 06:30 Baso % (Auto) 0.6 % (0.0-3.0) 04/11/18 06:30 Gran # 1.72 (1.4-6.5) 04/11/18 06:30 Lymph # (Auto) 1.1 (1.2-3.4) L 04/11/18 06:30 [place] # (Auto) 0.4 (0.1-0.6) 04/11/18 06:30 Eos # (Auto) 0.1 (0.0-0.7) 04/11/18 06:30 Baso # (Auto) 0.02 K/mm3 (0.0-2.0) 04/11/18 06:30 PT 10.6 SECONDS (9.4-12.5) 04/09/18 11:45 INR 0.92 04/09/18 11:45 APTT 30.0 Seconds (25.1-36.5) 04/09/18 11:45 Sodium 137 mmol/L (132-148) 04/11/18 06:30 Potassium 3.5 mmol/L (3.6-5.0) L 04/11/18 06:30 Chloride 101 mmol/L (98-107) 04/11/18 06:30 Carbon Dioxide 30 mmol/L (21-33) 04/11/18 06:30 Anion Gap 10 (10-20) 04/11/18 06:30 BUN 8 mg/dL (7-21) 04/11/18 06:30 Creatinine 0.5 mg/dl (0.7-1.2) L 04/11/18 06:30 Est GFR ( Amer) > 60 04/11/18 06:30 Est GFR (Non-Af Amer) > 60 04/11/18 06:30 POC Glucose (mg/dL) 93 mg/dL (65-110) 04/09/18 15:08 Random Glucose 93 mg/dL (70-110) 04/11/18 06:30 Calcium 8.9 mg/dL (8.4-10.5) 04/11/18 06:30 Phosphorus 3.1 mg/dL (2.5-4.5) 04/10/18 07:30 Magnesium 1.5 mg/dL (1.7-2.2) L 04/10/18 07:30 Total Bilirubin 0.9 mg/dL (0.2-1.3) 04/11/18 06:30 AST 89 U/L (14-36) H D 04/11/18 06:30 ALT 90 U/L (7-56) H 04/11/18 06:30 Alkaline Phosphatase 78 U/L (38-126) 04/11/18 06:30 Lactate Dehydrogenase 701 U/L (333-699) H 04/09/18 11:45 Total Creatine Kinase 186 U/L (35-230) 04/09/18 11:45 Troponin I < 0.01 ng/mL 04/09/18 11:45 Total Protein 6.5 g/dL (5.8-8.3) 04/11/18 06:30 Albumin 3.5 g/dL (3.0-4.8) 04/11/18 06:30 Globulin 3.0 gm/dL 04/11/18 06:30 Albumin/Globulin Ratio 1.1 (1.1-1.8) 04/11/18 06:30 Urine Color Yellow (YELLOW) 04/09/18 12:20 Urine Appearance Clear (CLEAR) 04/09/18 12:20 Urine pH 7.0 (4.7-8.0) 04/09/18 12:20 Ur Specific [place] 1.010 (1.005-1.035) 04/09/18 12:20 Urine Protein Negative mg/dL (<30 mg/dL) 04/09/18 12:20 Urine Glucose (UA) Negative mg/dL (NEGATIVE) 04/09/18 12:20 Urine Ketones Negative mg/dL (NEGATIVE) 04/09/18 12:20 Urine Blood Small (NEGATIVE) H 04/09/18 12:20 Urine Nitrate Negative (NEGATIVE) 04/09/18 12:20 Urine Bilirubin Negative (NEGATIVE) 04/09/18 12:20 Urine Urobilinogen 0.2 E.U./dL (<1 E.U./dL) 04/09/18 12:20 Ur Leukocyte Esterase Trace Mary/uL (NEGATIVE) H 04/09/18 12:20 Urine RBC 5 - 10 /hpf (0-2) 04/09/18 12:20 Urine WBC 2 - 5 /hpf (0-6) 04/09/18 12:20 Ur Epithelial Cells 4 - 5 /hpf (0-5) 04/09/18 12:20 Urine Bacteria Mod (NEG) 04/09/18 12:20 Urine HCG, Qual Negative (NEGATIVE) 04/09/18 12:20 Salicylates < 1 mg/dL (2.0-20.0) L 04/09/18 11:45 Urine Opiates Screen Negative (NEGATIVE) 04/09/18 12:20 Urine Methadone Screen Negative (NEGATIVE) 04/09/18 12:20 Acetaminophen < 10.0 ug/ml (10.0-20.0) L 04/09/18 11:45 Ur Barbiturates Screen Negative (NEGATIVE) 04/09/18 12:20 Ur Phencyclidine Scrn Negative (NEGATIVE) 04/09/18 12:20 Ur Amphetamines Screen Negative (NEGATIVE) 04/09/18 12:20 U Benzodiazepines Scrn Negative (NEGATIVE) 04/09/18 12:20 U Oth Cocaine Metabols Negative (NEGATIVE) 04/09/18 12:20 U Cannabinoids Screen Negative (NEGATIVE) 04/09/18 12:20 Alcohol, Quantitative 460 mg/dL (0-10) H* 04/09/18 11:45 Hepatitis A IgM Ab Negative (NEGATIVE) 04/11/18 06:30 Hep Bs Antigen Negative (NEGATIVE) 04/11/18 06:30 Hep B Core IgM Ab Negative (NEGATIVE) 04/11/18 06:30 Hepatitis C Antibody Negative (NEGATIVE) 04/11/18 06:30 - Hospital Course Hospital Course: Jonathan Heredia, PGY1 Discharge Summary for Dr. Breaux Hospital Admission: Patient is a 37 year old female with PMH of alcohol abuse, asthma, depression, and HSV2 presenting to ED on 04/09 for alcohol intoxication. Patient says that she has been drinking heavily (750 ml liquor every day) for the past few weeks because of social stress involving her ex-. Patient denies thoughts of suicide and has no intention of hurting others. She lives at home and works as a medical insurance claims specialist. She has had admissions to the hospital before, pertaining to alcohol withdrawal. When she withdraws, she says that she experiences sweats , palpitations, hallucinations (visual and tactile), and tremors. During present time of interview, patient was not experiencing this. She states she has been going to AA but has been unable to stop drinking. Patient was seen last week in ED for alcohol withdrawal. Patient's EtOH level in the ED was 460. Patient was admitted to telemetry for Alcohol withdrawal. She also had hypokalemia and hypomagnesemia, in which electrolytes were repleted and now normal. CIWA protocol was initiated. Patient has had no adverse overnight events. Her most recent CIWA score was 0. Patient has only been receiving scheduled 1 mg ativan q6 and has had no episodes of agitation, hallucinations, or signs of aggression. Psych was consulted for depression and patient was medically cleared. Vitals are stable and patient is hemodynamically safe for discharge. Upon Discharge: Patient is safe for discharge. Patient will follow up with her PMD upon discharge. Patient was educated on alcohol cessation and consequences of alcohol withdrawal. Case was discussed and reviewed with Attending Physician, Dr. Breaux Discharge Exam - Head Exam Head Exam: ATRAUMATIC, NORMAL INSPECTION, NORMOCEPHALIC - Eye Exam Eye Exam: EOMI, Normal appearance, PERRL Pupil Exam: NORMAL ACCOMODATION, PERRL - ENT Exam ENT Exam: Mucous Membranes Moist, Normal Exam - Neck Exam Neck exam: Full Rom - Respiratory Exam Respiratory Exam: Clear to PA & Lateral, NORMAL BREATHING PATTERN, UNREMARKABLE. absent: Rales, Rhonchi, Wheezes - Cardiovascular Exam Cardiovascular Exam: REGULAR RHYTHM, +S1, +S2 - GI/Abdominal Exam GI & Abdominal Exam: Normal Bowel Sounds, Unremarkable - Extremities Exam Extremities exam: normal capillary refill, normal inspection, pedal pulses present - Back Exam Back exam: NORMAL INSPECTION - Neurological Exam Neurological exam: Alert, Normal Gait, Oriented x3 - Psychiatric Exam Psychiatric exam: Flat Affect - Skin Skin Exam: Dry, Intact, Normal Color, Warm Discharge Plan - Discharge Medications Prescriptions: Folic Acid 0.4 mg PO DAILY #30 tablet Multimineral/Multivitamin [Therapeutic-M Tab] 1 tab PO DAILY #14 tab Thiamine HCl [Vitamin B-1] 100 mg PO DAILY #30 tablet - Follow Up Plan Condition: SERIOUS Disposition: HOME/ ROUTINE Instructions: Alcohol Withdrawal, Alcohol Abuse and Alcoholism (DC) Additional Instructions: 1. You are to follow up with your Primary Care Doctor within 3-4 days of discharge. 2. You are to resume your home medications as prescribed. 3. You are started on new medications:Thiamine 100 mg daily for 30 days, Multivitamin 1 tablet daily for 14 days, Folic Acid 0.4 mg daily for 30 days. 4. Please continue to attend your AA meetings. You are advised to stop alcohol use. 5. Please return to the ED if your symptoms reoccur. <aRfat Breaux - Last Filed: 04/11/18 18:32> Provider - Provider Date of Admission: 04/09/18 20:31 Attending physician: Rafat Breaux MD Hospital Course - Lab Results Lab Results: Most Recent Lab Values WBC 3.4 10^3/ul (4.5-11.0) L 04/11/18 06:30 RBC 3.70 10^6/uL (3.5-6.1) 04/11/18 06:30 Hgb 11.2 g/dL (12.0-16.0) L 04/11/18 06:30 Hct 33.4 % (36.0-48.0) L 04/11/18 06:30 MCV 90.3 fl (80.0-105.0) 04/11/18 06:30 MCH 30.3 pg (25.0-35.0) 04/11/18 06:30 MCHC 33.5 g/dl (31.0-37.0) 04/11/18 06:30 RDW 13.5 % (11.5-14.5) 04/11/18 06:30 Plt Count 87 10^3/uL (120.0-450.0) L 04/11/18 06:30 MPV 10.1 fl (7.0-11.0) 04/11/18 06:30 Gran % 51.0 % (50.0-68.0) 04/11/18 06:30 Lymph % (Auto) 32.0 % (22.0-35.0) 04/11/18 06:30 [place] % (Auto) 12.5 % (1.0-6.0) H 04/11/18 06:30 Eos % (Auto) 3.9 % (1.5-5.0) 04/11/18 06:30 Baso % (Auto) 0.6 % (0.0-3.0) 04/11/18 06:30 Gran # 1.72 (1.4-6.5) 04/11/18 06:30 Lymph # (Auto) 1.1 (1.2-3.4) L 04/11/18 06:30 [place] # (Auto) 0.4 (0.1-0.6) 04/11/18 06:30 Eos # (Auto) 0.1 (0.0-0.7) 04/11/18 06:30 Baso # (Auto) 0.02 K/mm3 (0.0-2.0) 04/11/18 06:30 PT 10.6 SECONDS (9.4-12.5) 04/09/18 11:45 INR 0.92 04/09/18 11:45 APTT 30.0 Seconds (25.1-36.5) 04/09/18 11:45 Sodium 137 mmol/L (132-148) 04/11/18 06:30 Potassium 3.5 mmol/L (3.6-5.0) L 04/11/18 06:30 Chloride 101 mmol/L (98-107) 04/11/18 06:30 Carbon Dioxide 30 mmol/L (21-33) 04/11/18 06:30 Anion Gap 10 (10-20) 04/11/18 06:30 BUN 8 mg/dL (7-21) 04/11/18 06:30 Creatinine 0.5 mg/dl (0.7-1.2) L 04/11/18 06:30 Est GFR ( Amer) > 60 04/11/18 06:30 Est GFR (Non-Af Amer) > 60 04/11/18 06:30 POC Glucose (mg/dL) 93 mg/dL (65-110) 04/09/18 15:08 Random Glucose 93 mg/dL (70-110) 04/11/18 06:30 Calcium 8.9 mg/dL (8.4-10.5) 04/11/18 06:30 Phosphorus 3.1 mg/dL (2.5-4.5) 04/10/18 07:30 Magnesium 1.5 mg/dL (1.7-2.2) L 04/10/18 07:30 Total Bilirubin 0.9 mg/dL (0.2-1.3) 04/11/18 06:30 AST 89 U/L (14-36) H D 04/11/18 06:30 ALT 90 U/L (7-56) H 04/11/18 06:30 Alkaline Phosphatase 78 U/L (38-126) 04/11/18 06:30 Lactate Dehydrogenase 701 U/L (333-699) H 04/09/18 11:45 Total Creatine Kinase 186 U/L (35-230) 04/09/18 11:45 Troponin I < 0.01 ng/mL 04/09/18 11:45 Total Protein 6.5 g/dL (5.8-8.3) 04/11/18 06:30 Albumin 3.5 g/dL (3.0-4.8) 04/11/18 06:30 Globulin 3.0 gm/dL 04/11/18 06:30 Albumin/Globulin Ratio 1.1 (1.1-1.8) 04/11/18 06:30 Urine Color Yellow (YELLOW) 04/09/18 12:20 Urine Appearance Clear (CLEAR) 04/09/18 12:20 Urine pH 7.0 (4.7-8.0) 04/09/18 12:20 Ur Specific [place] 1.010 (1.005-1.035) 04/09/18 12:20 Urine Protein Negative mg/dL (<30 mg/dL) 04/09/18 12:20 Urine Glucose (UA) Negative mg/dL (NEGATIVE) 04/09/18 12:20 Urine Ketones Negative mg/dL (NEGATIVE) 04/09/18 12:20 Urine Blood Small (NEGATIVE) H 04/09/18 12:20 Urine Nitrate Negative (NEGATIVE) 04/09/18 12:20 Urine Bilirubin Negative (NEGATIVE) 04/09/18 12:20 Urine Urobilinogen 0.2 E.U./dL (<1 E.U./dL) 04/09/18 12:20 Ur Leukocyte Esterase Trace Mary/uL (NEGATIVE) H 04/09/18 12:20 Urine RBC 5 - 10 /hpf (0-2) 04/09/18 12:20 Urine WBC 2 - 5 /hpf (0-6) 04/09/18 12:20 Ur Epithelial Cells 4 - 5 /hpf (0-5) 04/09/18 12:20 Urine Bacteria Mod (NEG) 04/09/18 12:20 Urine HCG, Qual Negative (NEGATIVE) 04/09/18 12:20 Salicylates < 1 mg/dL (2.0-20.0) L 04/09/18 11:45 Urine Opiates Screen Negative (NEGATIVE) 04/09/18 12:20 Urine Methadone Screen Negative (NEGATIVE) 04/09/18 12:20 Acetaminophen < 10.0 ug/ml (10.0-20.0) L 04/09/18 11:45 Ur Barbiturates Screen Negative (NEGATIVE) 04/09/18 12:20 Ur Phencyclidine Scrn Negative (NEGATIVE) 04/09/18 12:20 Ur Amphetamines Screen Negative (NEGATIVE) 04/09/18 12:20 U Benzodiazepines Scrn Negative (NEGATIVE) 04/09/18 12:20 U Oth Cocaine Metabols Negative (NEGATIVE) 04/09/18 12:20 U Cannabinoids Screen Negative (NEGATIVE) 04/09/18 12:20 Alcohol, Quantitative 460 mg/dL (0-10) H* 04/09/18 11:45 Hepatitis A IgM Ab Negative (NEGATIVE) 04/11/18 06:30 Hep Bs Antigen Negative (NEGATIVE) 04/11/18 06:30 Hep B Core IgM Ab Negative (NEGATIVE) 04/11/18 06:30 Hepatitis C Antibody Negative (NEGATIVE) 04/11/18 06:30 Attending/Attestation - Attestation I have personally seen and examined this patient.: Yes I have fully participated in the care of the patient.: Yes I have reviewed all pertinent clinical information, including history, physical exam and plan: Yes Notes (Text): 04/11/18 18:30 Attending note; Patient seen and examined with resident. Patient is alert and awake. Denies any chest pain, shortness of breath. Denies any palpitation. Tolerating diet well. Ambulating fine. Patient is a 37 year old female with PMHx of alcohol abuse, asthma, depression, and HSV 2 who presented to the ED for alcohol intoxication. Patient has multiple ER visits for alcohol intoxication. Patient states that she follows up with AA meetings but still not able to stop. Monitor closely for withdrawal symptoms. Treated with with multivitamin, thiamine, folic acid. Complete alcohol cessation is strongly advised. Elevated LFTs; secondary to alcohol abuse. Improving slowly. Hepatitis profile is negative. Psychiatric evaluation appreciated. Information given by psychiatrist for outpatient follow-up. Patient is medically stable for discharge. Continue multivitamin, thiamine, folic acid. Upon discharge the patient will follow-up with .
--- NOTE | 2018-04-12 03:32 | CON ---
Copied To: Iza Gotti MD Attending MD: Iza Gotti MD DATE: 04/11/2018 HISTORY OF PRESENT ILLNESS: In short, the patient is a 37-year-old female with reported history of alcohol use disorder. The patient was admitted to the medical site for evaluation of possible alcohol withdrawal syndrome. The patient was found to be depressed. Psych consult was called for evaluation. The patient was seen and examined today. The patient presented to be alert, oriented, pleasant, and cooperative. The patient was observed eating, seems with a good appetite. During the interview, the patient presented with tearful affect. The patient reported that she with her with her and the main reason was that they could not have kids. The patient reported that she was financially struggling and that she was dealing with the stress by using alcohol. The patient reported that she had history of binge drinking and the patient was drinking for past 2 weeks before she came to the hospital. 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 In regards of the mood symptoms, the patient reported that she feels upset and depressed, but adamantly denied any hopelessness or helplessness. The patient adamantly denied thoughts of harming herself or others. The patient reported that she attends AA meeting and NA meeting. The patient reports that she was on naltrexone in the past and she was willing to continue that medication as outpatient. The patient also was interested to be followed up by psychiatrist in the community. This race and sports book writer provided information for services, care in [place] as well as [facility]. This race and sports book writer also provided information about psychiatric office here in [place]. The patient seems to be receptive. PHYSICAL EXAMINATION: VITAL SIGNS: This race and sports book writer reviewed vital signs. Vital signs seem to be stable. Temperature 98.9, pulse is 84, blood pressure 134/97, respirations 19. MEDICATIONS: Reviewed. The patient was on Brovana, Pulmicort, Pepcid, folic acid, heparin, Ativan 1 mg every 6 hours scheduled, multivitamins, and thiamine. LABORATORY DATA: Reviewed. Most recent was from today. Chemistry: AST and ALT are elevated, but trending down. Toxicology; alcohol level was 460 at the time of admission. Microbiology reviewed; no growth in urine. MENTAL STATUS EXAMINATION: The patient presented to be alert and oriented, pleasant, and cooperative. Fair eye contact. Mood described as upset and depressed. Affect was tearful, mood congruent. Thought process: Coherent and goal directed. Thought content: The patient denied any visual, auditory, or tactile hallucinations. Denied paranoid ideation. The patient adamantly denied any thoughts of harming herself or others. Denied any psychotic symptoms. Insight and judgment seem to be improving. Impulses are well controlled. IMPRESSION: Alcohol use disorder, alcohol withdrawal syndrome which is improving, rule out major depressive disorder, rule out adjustment disorder, rule out substance-induced mood disorder. Of note, the patient denied history of being seen by psychiatrist and denied history of suicidal attempt. The patient also denied history of being admitted to the psychiatric inpatient unit. PLAN: Continue current management. Continue current medication. Continue Ativan, multivitamins, thiamine and folic acid. phlebotomy services representative and alcohol counseling. The patient was provided information for outpatient program. The patient was discussed about the option to initiate naltrexone as outpatient. The patient was offered to do so. The patient pose no imminent danger to self or others. This race and sports book writer will sign off. Should you have any questions, give me a call back. Iza Gotti MD
== END 2018-04-11 16:29 | disposition home or self-care (01) | DRG 897 ==
LOC: ED 11:13 → ERH 20:31 → 2RSO 23:18
PROVIDERS: ADMIT Internal Medicine; ATTEND Internal Medicine
PROC: 3E0F7GC Introduction of Other Therapeutic Substance into Respiratory Tract, Via Natural or Artificial Opening (ICD-10-PCS; principal; 2018-04-10)
DX: F10.239 Alcohol dependence with withdrawal, unspecified (principal); F10.229 Alcohol dependence with intoxication, unspecified; J45.909 Unspecified asthma, uncomplicated; F32.9 Major depressive disorder, single episode, unspecified; Y90.8 Blood alcohol level of 240 mg/100 ml or more; E83.42 Hypomagnesemia; E87.6 Hypokalemia